=== PATIENT | male | born 1940 | race Hispanic/Latino ===

== ENCOUNTER → 2018-03-25 10:21 | Outpatient (CLI) | payer MEDICARE, SELFPAY ==
[2018-03-25 12:07] LABS: Absolute Lymphocyte Count 2.97 X10^3/ul (0.83-4.51); Absolute Neutrophil Count 3.8 X10^3/uL (2.0-7.7); Basophil# 0.04 X10^3/uL; Basophil% 0.5 % (0-1); Eosinophil# 0.14 X10^3/uL; Eosinophils% 1.9 % (0-5); Hematocrit 48.3 % (40-54); Hemoglobin 15.5 g/dl (13.0-16.5); Lymphocyte # 2.97 X10^3/ul (4.0); Lymphocyte % 40.2 % (19-41); Mean Corp Hgb Conc 32.1 g/gl (32-36); Mean Corpuscular Hgb 27.4 pg (27.0-32.0); Mean Corpuscular Volume 85.5 fL (80-94); Mean Platelet Vol. 10.2 fl (6.2-12.0); Monocyte# 0.48 X10^3/uL; Monocyte% 6.5 % (0-10); Neutrophil # 3.75 X10^3/uL (2.7-7.7); Neutrophil % 50.9 % (47-70); Platelet Count 179 K/mm3 (150-450); RBC Distribution Width CV 13.5 % (11.6-14.6); RBC Distribution Width SD 42.2 fl (35.1-43.9); Red Blood Count 5.65 M/mm3 (4.6-6.2); White Blood Count 7.4 K/mm3 (4.4-11.0)
[2018-03-25 12:08] LABS: POSITIVE COUNT NO; POSITIVE DIFFERENTIAL NO; POSITIVE MORPHOLOGY NO
[2018-03-25 12:38] LABS: Anion Gap 6 (5-15); BUN 24 mg/dL (7-18); BUN/Creat Ratio 21.8 RATIO (10-20); Calcium,Total 9.1 mg/dL (8.5-10.1); Chloride 107 mmol/L (98-107); EST Glomerular Filtration Rate 69 mL/min (>60); Est Glom Filt Rate - Afr Amer 83 mL/min (>60); Glucose 110 mg/dL (74-106); Potassium 4.1 mmol/L (3.5-5.1); Sodium Level 140 mmol/L (136-145); T4 Free Direct 0.89 ng/dL (0.76-1.46); Thyroid Stim Hormone (TSH) 4.39 uIU/mL (0.358-3.74)
[2018-03-26 08:44] LABS: Vitamin B12 383 pg/mL (211-911)
== END ==
PROVIDERS: Family Provider Family Medicine; PCP Family Medicine; Visit Provider Family Medicine
DX: N18.2 Chronic kidney disease, stage 2 (mild) (principal); E03.9 Hypothyroidism, unspecified; R53.83 Other fatigue; G62.9 Polyneuropathy, unspecified
CPT/HCPCS: 36415; 80048; 82607; 84439; 84443; 85025

== ENCOUNTER → 2018-12-03 14:55 | Outpatient (CLI) | payer MEDICARE, SELFPAY ==
[2018-12-03 17:30] LABS: Absolute Lymphocyte Count 3.15 X10^3/ul (0.83-4.51); Absolute Neutrophil Count 4.2 X10^3/uL (2.0-7.7); Basophil# 0.03 X10^3/uL; Basophil% 0.4 % (0-1); Eosinophil# 0.25 X10^3/uL; Hematocrit 47.9 % (40-54); Hemoglobin 15.2 g/dl (13.0-16.5); Lymphocyte # 3.15 X10^3/ul (4.0); Lymphocyte % 38.3 % (19-41); Mean Corp Hgb Conc 31.7 g/gl (32-36); Mean Corpuscular Hgb 27.6 pg (27.0-32.0); Mean Corpuscular Volume 86.9 fL (80-94); Mean Platelet Vol. 11.6 fl (6.2-12.0); Monocyte# 0.61 X10^3/uL; Monocyte% 7.4 % (0-10); Neutrophil # 4.16 X10^3/uL (2.7-7.7); Neutrophil % 50.7 % (47-70); Platelet Count 264 K/mm3 (150-450); RBC Distribution Width CV 13.4 % (11.6-14.6); RBC Distribution Width SD 42.3 fl (35.1-43.9); Red Blood Count 5.51 M/mm3 (4.6-6.2); White Blood Count 8.2 K/mm3 (4.4-11.0)
[2018-12-03 17:44] LABS: Anion Gap 7 (5-15); BUN 23 mg/dL (7-18); BUN/Creat Ratio 19.8 RATIO (10-20); Calcium,Total 8.8 mg/dL (8.5-10.1); Chloride 107 mmol/L (98-107); Creatinine, Serum 1.16 mg/dL (0.70-1.30); EST Glomerular Filtration Rate 65 mL/min (>60); Est Glom Filt Rate - Afr Amer 78 mL/min (>60); Glucose 199 mg/dL (74-106); Potassium 4.1 mmol/L (3.5-5.1); Sodium Level 139 mmol/L (136-145); T4 Free Direct 0.95 ng/dL (0.76-1.46); Thyroid Stim Hormone (TSH) 4.39 uIU/mL (0.358-3.74)
[2018-12-03 17:47] LABS: POSITIVE COUNT NO; POSITIVE DIFFERENTIAL NO; POSITIVE MORPHOLOGY NO
--- OUTSIDE RECORDS SUMMARY | 2019-02-07 14:06 | XMS RPT_ITS ---
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 [facility] without Hospital complications / Repository E11.9(ICD-10) 03/25/2018 Unknown N18.2 - Chronic Derrick Pink Active [place] kidney disease, [facility] stage 2 (mild) / Hospital N18.2(ICD-10) Repository 03/25/2018 Unknown R53.83 - Other Derrick Pink Active [place] fatigue / Community R53.83(ICD-10) Hospital Repository 03/25/2018 Unknown G62.9 - Derrick Pink Active [place] Polyneuropathy, Community unspecified / Hospital G62.9(ICD-10) Repository PROCEDURES PROCEDURES No Procedure Records FoundRESULTS RESULTS BASIC METABOLIC Collected: 12/03/2018 Status: F Source: [place] PROFILE (BMP) 2:57 PM [facility] REPOSITORY TYPE CODE TESTS RESULT OUT OF RANGE REFERENCE UNITS LAB L501.0100 74-106 mg/dL High GLU 199 Result Comment: Fasting Glucose result greater than or equal to 126 mg/dL suggests DIABETES MELLITUS per A.D.A. criteria. Please note revised GLUCOSE reference range effective 2017. LAB L501.1000 7-18 mg/dL High BUN 23 LAB L501.1100 0.70-1.30 mg/dL Normal CREAT,SERUM 1.16 Result Comment: The validity of the calculated GFR AND GFRAA in patients over 70 years has not been determined. Clinical correlation is essential. LAB L501.1110 >60 mL/min Normal EST GFR 65 Result Comment: Non- GFR Calc LAB L501.1115 >60 mL/min Normal EST GFR - AA 78 Result Comment: GFR Calc LAB L501.1300 10-20 RATIO Normal BUN/CRE 19.8 LAB L501.2200 8.5-10.1 mg/dL CA Normal 8.8 LAB L501.5300 136-145 mmol/L NA Normal 139 LAB L501.5600 3.5-5.1 mmol/L K Normal 4.1 Result Comment: Moderate Hemolysis, Result may be falsely increased. LAB L501.5900 98-107 mmol/L Normal CL 107 LAB L501.6100 21.0-32.0 mmol/L Normal CO2 25.0 LAB L501.6200 5-15 Normal 7 GAP Performed By: #### L500.2500, L501.9520, L506.0400 #### [facility] [address] [place], [place], [address] THYROID STIM HORMONE Collected: 12/03/2018 Status: F Source: [place]ERNARD[place] (TSH) 2:57 PM [facility] REPOSITORY TYPE CODE TESTS RESULT OUT OF RANGE REFERENCE UNITS LAB L501.9520 0.358-3.74 uIU/mL High TSH 4.39 Performed By: #### L500.2500, L501.9520, L506.0400 #### [facility] [address] [place], [address] T4 FREE DIRECT Collected: 12/03/2018 Status: F Source: BERNARDINO 2:57 PM [facility] REPOSITORY TYPE CODE TESTS RESULT OUT OF RANGE REFERENCE UNITS LAB L506.0400 0.76-1.46 ng/dL Normal T4 FREE 0.95 DIRECT Performed By: #### L500.2500, L501.9520, L506.0400 #### [facility] [address] [place], [address] CBC W/DIFF, AUTOMATED Collected: 12/03/2018 Status: F Source: [place]ERN[place] 2:57 PM [facility] REPOSITORY TYPE CODE TESTS RESULT OUT OF RANGE REFERENCE UNITS LAB L100.1000 4.4-11.0 K/mm3 Normal WBC 8.2 LAB L100.1200 4.6-6.2 M/mm3 Normal RBC 5.51 LAB L100.1300 13.0-16.5 g/dl Normal HGB 15.2 LAB L100.1400 40-54 % Normal HCT 47.9 LAB L100.1500 80-94 fL Normal MCV 86.9 LAB L100.1600 27.0-32.0 pg Normal MCH 27.6 LAB L100.1700 32-36 g/gl Low MCHC 31.7 LAB L100.1810 11.6-14.6 % Normal RDW CV 13.4 LAB L100.1820 35.1-43.9 fl Normal RDW SD 42.3 LAB L100.1900 150-450 K/mm3 Normal PLT 264 LAB L100.2000 6.2-12.0 fl Normal MPV 11.6 LAB L100.2100 47-70 % Normal NEUT% 50.7 LAB L100.2200 19-41 % Normal LY% 38.3 LAB L100.2300 0-10 % Normal MONO% 7.4 LAB L100.2400 0-5 % Normal EO% 3.0 LAB L100.2500 0-1 % Normal BASO% 0.4 LAB L100.2550 0.0-0.9 % Normal IM GRAN % 0.200 Result Comment: IG% - Immature Granulocytes (promyelocytes, myelocytes and metamyelocytes) > 1% indicates that a LEFT SHIFT is Present. LAB L100.2620 2.0-7.7 X10 3/uL Normal Absolute Neut 4.2 LAB L100.2720 0.83-4.51 X10 3/ul Normal Absolute Lymph 3.15 Performed By: #### L100.0100 #### [facility] [place], [address] CBC W/DIFF, AUTOMATED Collected: 03/25/2018 Status: F Source: BERNARDINO 10:51 AM [facility] REPOSITORY TYPE CODE TESTS RESULT OUT OF RANGE REFERENCE UNITS LAB L100.1000 4.4-11.0 K/mm3 Normal WBC 7.4 LAB L100.1200 4.6-6.2 M/mm3 Normal RBC 5.65 LAB L100.1300 13.0-16.5 g/dl Normal HGB 15.5 LAB L100.1400 40-54 % Normal HCT 48.3 LAB L100.1500 80-94 fL Normal MCV 85.5 LAB L100.1600 27.0-32.0 pg Normal MCH 27.4 LAB L100.1700 32-36 g/gl Normal MCHC 32.1 LAB L100.1810 11.6-14.6 % Normal RDW CV 13.5 LAB L100.1820 35.1-43.9 fl Normal RDW SD 42.2 LAB L100.1900 150-450 K/mm3 Normal PLT 179 LAB L100.2000 6.2-12.0 fl Normal MPV 10.2 LAB L100.2100 47-70 % Normal NEUT% 50.9 LAB L100.2200 19-41 % Normal LY% 40.2 LAB L100.2300 0-10 % Normal MONO% 6.5 LAB L100.2400 0-5 % Normal EO% 1.9 LAB L100.2500 0-1 % Normal BASO% 0.5 LAB L100.2550 0.0-0.9 % Normal IM GRAN % 0.000 Result Comment: IG% - Immature Granulocytes (promyelocytes, myelocytes and metamyelocytes) > 1% indicates that a LEFT SHIFT is Present. LAB L100.2620 2.0-7.7 X10 3/uL Normal Absolute Neut 3.8 LAB L100.2720 0.83-4.51 X10 3/ul Normal Absolute Lymph 2.97 Performed By: #### L100.0100 #### [facility] [address] [place], [place], [address] BASIC METABOLIC Collected: 03/25/2018 Status: F Source: B[place]ARD[place] PROFILE (BMP) 10:51 AM [facility] REPOSITORY TYPE CODE TESTS RESULT OUT OF RANGE REFERENCE UNITS LAB L501.0100 74-106 mg/dL High GLU 110 Result Comment: Fasting Glucose result from 100 to 125 mg/dL suggests IMPAIRED HOMEOSTASIS per A.D.A. criteria. Please note revised GLUCOSE reference range effective 2017. LAB L501.1000 7-18 mg/dL High BUN 24 LAB L501.1100 0.70-1.30 mg/dL Normal CREAT,SERUM 1.10 Result Comment: The validity of the calculated GFR AND GFRAA in patients over 70 years has not been determined. Clinical correlation is essential. LAB L501.1110 >60 mL/min Normal EST GFR 69 Result Comment: Non- GFR Calc LAB L501.1115 >60 mL/min Normal EST GFR - AA 83 Result Comment: GFR Calc LAB L501.1300 10-20 RATIO High BUN/CRE 21.8 LAB L501.2200 8.5-10.1 mg/dL CA Normal 9.1 LAB L501.5300 136-145 mmol/L NA Normal 140 LAB L501.5600 3.5-5.1 mmol/L K Normal 4.1 Result Comment: Slight Hemolysis, Result may be falsely increased. LAB L501.5900 98-107 mmol/L Normal CL 107 LAB L501.6100 21.0-32.0 mmol/L Normal CO2 27.0 LAB L501.6200 5-15 Normal 6 GAP Performed By: #### L500.2500, L501.9520, L506.0400 #### [facility] [address] [place], [place], [id number] THYROID STIM HORMONE Collected: 03/25/2018 Status: F Source: [place] (TSH) 10:51 AM [facility] REPOSITORY TYPE CODE TESTS RESULT OUT OF RANGE REFERENCE UNITS LAB L501.9520 0.358-3.74 uIU/mL High TSH 4.39 Performed By: #### L500.2500, L501.9520, L506.0400 #### [facility] [address] [place], [place], [address] T4 FREE DIRECT Collected: 03/25/2018 Status: F Source: BERNARDINO 10:51 AM [facility] REPOSITORY TYPE CODE TESTS RESULT OUT OF RANGE REFERENCE UNITS LAB L506.0400 0.76-1.46 ng/dL Normal T4 FREE 0.89 DIRECT Performed By: #### L500.2500, L501.9520, L506.0400 #### [place] [facility] [address], [address] VITAMIN B12 Collected: 03/25/2018 Status: F Source: BERNARDINO 10:51 AM [facility] REPOSITORY TYPE CODE TESTS RESULT OUT OF RANGE REFERENCE UNITS LAB L503.0105 211-911 pg/mL Normal Vitamin B12 383 Performed By: #### L503.0105 #### [place] [facility] [address] [place], [address] ALLERGIES ALLERGIES DATE TYPE / CODE NAME / CODE REACTION SEVERITY SOURCE 12/10/2017 Drug No Known Unknown [facility] Allergy/4160 Allergies/F00 Hospital 12645(SNOMED [id number](RXNOR Repository CT) M) ENCOUNTERS ENCOUNTERS ADMIT/DISCHARGE ACCOUNT ADMITTING ENCOUNTER LOCATION SOURCE NUMBER CLASS 12/03/2018 [id number] Ambulatory [address] ing:BFHLAB Repository 03/25/2018 [id number] Ambulatory [address] ing:BFHLAB Repository PAYERS PAYERS ENCOUNTER GUARANTOR PAYER SUBSCRIBER SOURCE 12/03/2018 ENSUNCION Primary ENSUNCION [place] [id number] STAIR Insurance:MEDICARE ORTIZDOB: [facility] [id number] [id number]: [phone]) Number: Repository [phone] () [id number] Date:2018-12-03 12/03/2018 Secondary NOT GIVENUNK [place] Insurance:SELF PAY [facility] Number: Effective Repository Date:2018-12-03 03/25/2018 ENSUNCION Primary ENSUNCION [place] [id number] STAIR Insurance:MEDICARE ORTIZDOB: [place] PART A [facility] [id number] [address]Wjq: (419) Number: Repository [phone] () [id number] Date:2018-03-25 03/25/2018 Secondary NOT GIVENUNK [place] Insurance:SELF PAY [facility] Number: Effective Repository Date:2018-03-25
== END ==
PROVIDERS: Family Provider Family Medicine; PCP Family Medicine; Visit Provider Family Medicine
DX: E11.9 Type 2 diabetes mellitus without complications (principal); E03.9 Hypothyroidism, unspecified
CPT/HCPCS: 36415; 80048; 84439; 84443; 85025

== ENCOUNTER → 2019-04-02 15:38 | Outpatient (CLI) | payer MEDICARE, SELFPAY ==
[2017-12-11 08:37] VITALS: BMI 26.1
--- NOTE | 2019-04-02 15:43 | RAD_ITS ---
STUDY: X-RAY - LEFT KNEE REASON FOR EXAM: Male, 79 years old. Suspect osteoarthrosis. TECHNIQUE: 4 view(s) of the knee. COMPARISON: None. FINDINGS: Normal visualized distal femur. There is demineralization of the tibia and fibula. Normal proximal tibiofibular articulation. There is mild degenerative arthrosis of the medial femorotibial compartment. There is mild degenerative arthrosis of the lateral femorotibial compartment. There is mild degenerative arthrosis of the patellofemoral articulation. The soft tissue structures are unremarkable. 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 Electronically Signed: Luke Xiong DO at 22:39 EDT , Service support ,
--- NOTE | 2019-04-02 15:43 | RAD_ITS ---
STUDY: X-RAY - RIGHT KNEE REASON FOR EXAM: Male, 79 years old. Pain suspect osteoarthritis. TECHNIQUE: 5 view(s) of the knee. COMPARISON: None. FINDINGS: There is demineralization of the visualized distal femur. There is demineralization of the tibia and fibula. Normal proximal tibiofibular articulation. There is mild degenerative arthrosis of the medial femorotibial compartment. There is mild degenerative arthrosis of the lateral femorotibial compartment. There is moderate degenerative arthrosis of the patellofemoral articulation. The soft tissue structures are unremarkable. RAD/Knee 4 or More Views IMPRESSION: Mildly medial and lateral joint space arthrosis Electronically Signed: Luke Xiong DO at 22:19 EDT , Service support ,
== END ==
PROVIDERS: Family Provider Family Medicine; PCP Family Medicine; Referring Provider Family Medicine; Visit Provider Family Medicine
DX: M25.561 Pain in right knee (principal); M25.562 Pain in left knee; N39.0 Urinary tract infection, site not specified
CPT/HCPCS: 73564; 87086; 87088; 87186

== ENCOUNTER → 2019-06-26 11:10 | Outpatient (CLI) | payer MEDICARE, SELFPAY ==
[2017-12-11 08:37] VITALS: BMI 26.1
[2019-06-26 15:47] LABS: Absolute Lymphocyte Count 2.77 X10^3/uL (0.83-4.51); Absolute Neutrophil Count 5.4 X10^3/uL (2.0-7.7); Basophil# 0.05 X10^3/uL; Basophil% 0.6 % (0-1); Eosinophil# 0.18 X10^3/uL; Hematocrit 47.5 % (40-54); Hemoglobin 15.2 g/dL (13.0-16.5); Lymphocyte # 2.77 X10^3/ul (4.0); Lymphocyte % 30.5 % (19-41); Mean Corpuscular Volume 87.5 fL (80-94); Mean Platelet Vol. 11.2 fl (6.2-12.0); Monocyte# 0.61 X10^3/uL; Monocyte% 6.7 % (0-10); NRBC Flagged by Analyzer 0 % (0-5); Neutrophil # 5.44 X10^3/uL (2.7-7.7); Neutrophil % 59.9 % (47-70); Platelet Count 198 K/mm3 (150-450); RBC Distribution Width CV 14.2 % (11.6-14.6); RBC Distribution Width SD 45.4 fl (35.1-43.9); Red Blood Count 5.43 M/mm3 (4.6-6.2); White Blood Count 9.1 K/mm3 (4.4-11.0)
[2019-06-26 16:10] LABS: Anion Gap 6 (5-15); BUN 20 mg/dL (7-18); BUN/Creat Ratio 16.4 RATIO (10-20); Calcium,Total 8.9 mg/dL (8.5-10.1); Chloride 107 mmol/L (98-107); Creatinine, Serum 1.22 mg/dL (0.70-1.30); EST Glomerular Filtration Rate 61 mL/min (>60); Est Glom Filt Rate - Afr Amer 74 mL/min (>60); Glucose 118 mg/dL (74-106); Potassium 4.1 mmol/L (3.5-5.1); Sodium Level 140 mmol/L (136-145); T4 Free Direct 0.92 ng/dL (0.76-1.46); Thyroid Stim Hormone (TSH) 3.92 uIU/mL (0.358-3.74)
== END ==
LOC: LAB.FUTURE 01-01 00:34 → BFHLAB 05-30 15:55
PROVIDERS: Family Provider Family Medicine; PCP Family Medicine; Visit Provider Family Medicine
DX: E11.9 Type 2 diabetes mellitus without complications (principal); I10 Essential (primary) hypertension; R60.0 Localized edema; E03.9 Hypothyroidism, unspecified
CPT/HCPCS: 36415; 80048; 84439; 84443; 85025

== ENCOUNTER → 2019-11-16 14:57 | Outpatient (CLI) | payer MEDICARE, SELFPAY ==
[2017-12-11 08:37] VITALS: BMI 26.1
[2019-11-16 18:04] LABS: Absolute Lymphocyte Count 2.82 X10^3/uL (0.83-4.51); Absolute Neutrophil Count 3.7 X10^3/uL (2.0-7.7); Basophil# 0.04 X10^3/uL; Basophil% 0.6 % (0-1); Eosinophil# 0.26 X10^3/uL; Eosinophils% 3.6 % (0-5); Hematocrit 48.8 % (40-54); Lymphocyte # 2.82 X10^3/ul (4.0); Lymphocyte % 38.8 % (19-41); Mean Corp Hgb Conc 30.7 g/dL (32-36); Mean Corpuscular Hgb 27.1 pg (27.0-32.0); Mean Corpuscular Volume 88.2 fL (80-94); Mean Platelet Vol. 11.4 fl (6.2-12.0); Monocyte# 0.41 X10^3/uL; Monocyte% 5.6 % (0-10); NRBC Flagged by Analyzer 0 % (0-5); Neutrophil # 3.71 X10^3/uL (2.7-7.7); Neutrophil % 51.1 % (47-70); Platelet Count 250 K/mm3 (150-450); Red Blood Count 5.53 M/mm3 (4.6-6.2); White Blood Count 7.3 K/mm3 (4.4-11.0)
[2019-11-16 18:07] LABS: Vitamin B12 648 pg/mL (211-911)
[2019-11-16 18:14] LABS: ALB/GLOB Ratio 0.9 RATIO (0.9-2.4); AST(SGOT) 17 U/L (15-37); Alanine Aminotransfer ALT/SGPT 34 U/L (16-61); Albumin, Serum 3.5 g/dL (3.2-5.0); Alkaline Phosphatase 62 U/L (45-117); Anion Gap 6 (5-15); BUN 27 mg/dL (7-18); BUN/Creat Ratio 15.7 RATIO (10-20); Calcium,Total 8.6 mg/dL (8.5-10.1); Chloride 111 mmol/L (98-107); Creatinine, Serum 1.72 mg/dL (0.70-1.30); EST Glomerular Filtration Rate 41 mL/min (>60); Est Glom Filt Rate - Afr Amer 50 mL/min (>60); Globulin 3.7 g/dL (2.2-4.2); Glucose 94 mg/dL (74-106); Potassium 4.3 mmol/L (3.5-5.1); Protein, Total 7.2 g/dL (6.4-8.2); Sodium Level 145 mmol/L (136-145); T4 Free Direct 1.09 ng/dL (0.76-1.46); Thyroid Stim Hormone (TSH) 1.39 uIU/mL (0.358-3.74)
== END ==
PROVIDERS: Family Provider Family Medicine; PCP Family Medicine; Referring Provider Family Medicine; Visit Provider Family Medicine
DX: E03.9 Hypothyroidism, unspecified (principal); I10 Essential (primary) hypertension; E78.5 Hyperlipidemia, unspecified; F03.90 Unspecified dementia, unspecified severity, without behavioral disturbance, psychotic disturbance, mood disturbance, and anxiety
CPT/HCPCS: 36415; 80053; 82607; 84439; 84443; 85025

== ENCOUNTER → 2019-12-14 15:25 | Outpatient (CLI) | payer MEDICARE, SELFPAY ==
[2017-12-11 08:37] VITALS: BMI 26.1
[2019-12-14 17:54] LABS: Anion Gap 3 (5-15); BUN 23 mg/dL (7-18); Chloride 110 mmol/L (98-107); Creatinine, Serum 1.15 mg/dL (0.70-1.30); EST Glomerular Filtration Rate 65 mL/min (>60); Est Glom Filt Rate - Afr Amer 79 mL/min (>60); Glucose 93 mg/dL (74-106); Potassium 3.8 mmol/L (3.5-5.1); Sodium Level 143 mmol/L (136-145); Thyroid Stim Hormone (TSH) 1.32 uIU/mL (0.358-3.74)
== END ==
LOC: LAB.FUTURE 15:25 → BFHLAB 05-30 15:54
PROVIDERS: Family Provider Family Medicine; PCP Family Medicine; Visit Provider Family Medicine
DX: I10 Essential (primary) hypertension (principal); E03.9 Hypothyroidism, unspecified
CPT/HCPCS: 36415; 80048; 84443

== ENCOUNTER → 2019-12-22 14:18 | Outpatient (CLI) | payer MEDICARE, SELFPAY ==
--- NOTE | 2019-12-22 14:23 | CT_ITS ---
STUDY: CT BRAIN WITH AND WITHOUT CONTRAST REASON FOR EXAM: Male, 79 years old. 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 The examination was performed with intravenous administration. Individualized dose optimization techniques were used for this CT. COMPARISON: 03/18/2015. FINDINGS: Normal soft tissue structures. Normal calvarium. There is mild cerebral atrophy with widening of the extra-axial spaces and ventricular dilatation. There are areas of decreased attenuation within the white matter tracts of the supratentorial brain, consistent with microvascular disease changes. Normal basal ganglia and thalami. Normal brainstem. Normal cerebellum. There is no intracranial hemorrhage. There are no findings of an acute ischemic infarction. Normal visualized paranasal sinuses. CT/Brain/Head W/WO Contrast IMPRESSION: Mild generalized brain atrophy along with microangiopathic white matter disease. Otherwise normal unenhanced and enhanced CT scan of the brain. Electronically Signed: Silva De Luna MD at 0:20 EST , Service support ,
== END ==
LOC: CT 14:20
PROVIDERS: PCP Family Medicine; Referring Provider Family Medicine; Visit Provider Family Medicine
DX: F03.90 Unspecified dementia, unspecified severity, without behavioral disturbance, psychotic disturbance, mood disturbance, and anxiety (principal); R26.0 Ataxic gait; R32 Unspecified urinary incontinence
CPT/HCPCS: 70470

== ENCOUNTER → 2020-05-27 11:40 | Outpatient (CLI) | payer MEDICARE, SELFPAY ==
[2020-05-27 15:19] LABS: Absolute Lymphocyte Count 2.71 X10^3/uL (0.83-4.51); Absolute Neutrophil Count 4.8 X10^3/uL (2.0-7.7); Basophil# 0.08 X10^3/uL; Basophil% 0.9 % (0-1); Eosinophil# 1.02 X10^3/uL; Eosinophils% 11.2 % (0-5); Hematocrit 48.6 % (40-54); Hemoglobin 15.7 g/dL (13.0-16.5); Lymphocyte # 2.71 X10^3/ul (4.0); Lymphocyte % 29.9 % (19-41); Mean Corp Hgb Conc 32.3 g/dL (32-36); Mean Corpuscular Hgb 28.3 pg (27.0-32.0); Mean Corpuscular Volume 87.7 fL (80-94); Mean Platelet Vol. 11.3 fl (6.2-12.0); Monocyte# 0.44 X10^3/uL; Monocyte% 4.9 % (0-10); NRBC Flagged by Analyzer 0 % (0-5); Neutrophil % 52.9 % (47-70); Platelet Count 238 K/mm3 (150-450); RBC Distribution Width CV 13.9 % (11.6-14.6); RBC Distribution Width SD 43.6 fl (35.1-43.9); Red Blood Count 5.54 M/mm3 (4.6-6.2); White Blood Count 9.1 K/mm3 (4.4-11.0)
[2020-05-27 16:15] LABS: ALB/GLOB Ratio 0.9 RATIO (0.9-2.4); AST(SGOT) 21 U/L (15-37); Alanine Aminotransfer ALT/SGPT 30 U/L (16-61); Albumin, Serum 3.7 g/dL (3.2-5.0); Alkaline Phosphatase 66 U/L (45-117); Anion Gap 8 (5-15); BUN 16 mg/dL (7-18); BUN/Creat Ratio 12.5 RATIO (10-20); Calcium,Total 8.7 mg/dL (8.5-10.1); Chloride 107 mmol/L (98-107); Creatinine, Serum 1.28 mg/dL (0.70-1.30); EST Glomerular Filtration Rate 57 mL/min (>60); Est Glom Filt Rate - Afr Amer 70 mL/min (>60); Globulin 3.9 g/dL (2.2-4.2); Glucose 159 mg/dL (74-106); Potassium 3.8 mmol/L (3.5-5.1); Protein, Total 7.6 g/dL (6.4-8.2); Sodium Level 142 mmol/L (136-145); T4 Free Direct 0.98 ng/dL (0.76-1.46); Thyroid Stim Hormone (TSH) 4.35 uIU/mL (0.358-3.74)
== END ==
PROVIDERS: PCP Family Medicine; Visit Provider Family Medicine
DX: E11.9 Type 2 diabetes mellitus without complications (principal); E03.9 Hypothyroidism, unspecified; F03.90 Unspecified dementia, unspecified severity, without behavioral disturbance, psychotic disturbance, mood disturbance, and anxiety
CPT/HCPCS: 36415; 80053; 84439; 84443; 85025

== ENCOUNTER 2020-09-14 20:02 | Inpatient (IN) | payer MEDICARE, MEDICAID, SELFPAY ==
[2020-09-14] VITALS (10 sets, daily range): BP systolic 160–199; BP diastolic 89–111; PULSE 61–70; RESP 15–23; TEMP 36.2–36.6; O2SAT 95–98; BMI 32.3; BMI 27.2; BMI 29.4
--- NOTE | 2020-09-14 20:04 | EKG12_ITS ---
Test Reason : RHY CHECK Blood Pressure : / mmHG Vent. Rate : 056 BPM Atrial Rate : 056 BPM P-R Int : 148 ms QRS Dur : 118 ms QT Int : 474 ms P-R-T Axes : 000 -01 166 degrees QTc Int : 457 ms Sinus bradycardia Incomplete left bundle branch block ST & T wave abnormality, consider lateral ischemia Abnormal ECG Confirmed by DISHA STROUD, SANTOS ([id number]), health editor SHAHNAZ ROGER ([id number]) on 09/21/2020 10:52:01 AM Referred By: GARY Confirmed By:SANTOS GAUTHIER MD
--- NOTE | 2020-09-14 20:04 | CT_ITS ---
We are attempting to reach an attending provider to discuss findings. An addendum with communication details will be sent when the communication is complete. STUDY: CT BRAIN WITHOUT CONTRAST REASON FOR EXAM: Male, 80 years old. STROKE ALERT, LT SIDED WEAKNESS, CONFUSION, FALL RADIATION DOSAGE (If Supplied By Facility): CTDIvol = ( 44.99 ) mGy, DLP = ( 812.98 ) mGycm TECHNIQUE: Transaxial CT imaging of the brain was performed without administration of intravenous contrast material. Individualized dose optimization techniques were used for this CT. COMPARISON: 12/22/2019 FINDINGS: Normal soft tissue structures. Normal calvarium. Normal size ventricles and extra-axial spaces for the patient''s age. Bilateral white matter microangiopathic ischemic changes of the cerebral hemispheres. 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 Normal brainstem. Normal cerebellum. There is no intracranial hemorrhage. There are no findings of an acute ischemic infarction. Normal visualized paranasal sinuses. CT/Brain/Head without Contrast IMPRESSION: Age-related and chronic changes of the brain similar to previous study. Electronically Signed: Oscar Baltazar DO at 20:24 EDT Tel [phone], Service support ,
--- NOTE | 2020-09-14 20:19 | ED.DCSUM_ITS ---
History of Present Illness Chief Complaint: Neuro S/Sx Informant: Patient Onset: Today Quality and Location: Left Face Parasthesia, Left Arm Parasthesia, Left Arm Weakness, Expressive Aphasia Narrative: Patient is an 80-year-old male with history of CKD, diabetes mellitus, hyperlipidemia, hypertension, hypothyroid and SVT presenting via EMS for left- sided weakness and a fall. Patient was last seen well around 10 or 1030 this morning, approximate 10 hours prior to arrival. He is normally left home during the day will everyone else is at work and school. Family returned home around 530 or 6 and found him on the floor. He was laying on his left side. Did a hard time getting him up and he seemed to have left-sided weakness. He had a hard time walking and was dragging his left leg. 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 Patient seemed more confused and did not remember exactly what happened today. Patient normally ambulates with a cane at home but ambulates well independently. He is not on any blood thinners. Is not clear if he hit his head. Family called [phone] when he continued to have weakness and confusion. He is not on any blood thinners. Past Medical History - Allergies and Home Meds Allergies/Adverse Reactions: Allergies No Known Allergies Allergy (Verified 12/10/17 15:49) Primary Care Physician: Derrick Pink MD [Primary Care Provider] - Past Medical History: - - CKD, diabetes mellitus, hyperlipidemia, hypertension, hypothyroid, SVT Surgical History: - - Removal of the umbilicus Smoking Status: Never smoker - Family History Maternal Family History: Family History (Last Updated 11/28/17 @ 11:09 by Mariah Renae) Father Diabetes Hypertension Kidney disease Family History: Reports: Unknown Paternal Family History: Family History (Last Updated 11/28/17 @ 11:09 by Mariah Renae) Father Diabetes Hypertension Kidney disease Family History: Reports: Unknown Sibling Family History: Family History (Last Updated 11/28/17 @ 11:09 by Mariah Renae) Father Diabetes Hypertension Kidney disease Family History: Reports: Unknown Review of Systems General: Denies: Chills, Fever, Sweats Eyes: Denies: Visual changes - bilaterally, Diplopia ENT: Denies: Rhinorrhea, Sore throat Cardiovascular: Denies: Chest pain, Palpitations Respiratory: Denies: Dyspnea, Cough, Dyspnea on exertion Gastrointestinal: Denies: Abdominal pain, Nausea, Vomiting, Diarrhea, Melena, Hematochezia Genitourinary: Denies: Dysuria, Hematuria, Frequency Musculoskeletal: Denies: Back pain, Extremity Pain Skin: Denies: Rash, Wounds Neurological: Reports: Weakness, Parasthesia, - - confusion . Denies: Headache, Numbness STROKE Vital Signs/Narrative: Vital Signs Temp Pulse Resp BP Pulse Ox 09/14/20 20:08 160/90 H 09/14/20 20:03 97.1 F L 63 16 160/90 H 96 Inital Vital Signs reviewed: Yes - NIHSS Initial 1a Level of Consciousness: 0 1b LOC Questions (Score 2 if aphasic/stupor): 0 1c LOC Commands (Only score 1st attempt): 1 2 Best Gaze (If aphasic, use reflexive mvmts.): 0 3 Visual: 0 4 Facial Palsy: 1 5 Motor Arm Right (UN = amputation/fusion): 0 5 Motor Arm Left: 1 6 Motor Leg Right: 0 6 Motor Leg Left: 0 7 Limb ataxia (Only + if out of proportion): 0 8 Sensory (Aphasia/stupor=0 or 1, coma=2): 1 9 Best Language: 0 10 Dysarthria (mute, coma=2, intubated=UN): 1 11 Extinction and Inattention (only scored if +): 0 Total Score: 5 General: Well nourished, Well developed Head: Normocephalic, Atraumatic Eyes: Perrl, EOMI ENT: Moist mucous membranes, No rhinorrhea Neck: Supple, Nontender Cardiovascular: Regular rate, Regular rhythm, No murmurs Respiratory: No distress, CTA bilaterally, Chest nontender Abdomen: Soft, Nontender, Nondistended, Normal bowel sounds Back: Nontender, Normal Inspection Extremities: Nontender, No edema Skin: Normal color, No rash Neurological: Alert, Oriented x3, Cranial nerves II-XII grossly intact, Normal Strength, Normal Sensation Psychological: Normal affect Diagnostic/Tx/Re-eval Chest X-Ray - ED: 1 View, Read by ED Physician, Read by Radiologist, No Acute Disease - Rhythm Strip Rhythm Strip: Sinus Rhythm Rate: 61 Ectopy: None - EKG Initial EKG Interpretation: Sinus Rhythm, - - Normal sinus rhythm rate of 61 Left axis Incomplete left bundle branch block Nonspecific T wave inversions in lateral leads Compared to prior EKG on 03/24/2015 patient has no acute T wave changes - Medical Decision Making Stroke Team Activated: Yes Reviewed Inclusion/Exclusion criteria: Yes Was Patient considered for Endovascular Intervention?: No IV Alteplase (t-PA) Administered: No Evaluated for acute onset of confusion neurologic deficits. Patient's last known well was approximately 10 hours prior to arrival. He has an NIH of 5. He is not a TPA candidate given his last known well. CT obtained per the recommendation of telestroke which does not show a large vessel occlusion and does show a questionable area of stenosis at the proximal vertebral artery on the left versus artifact. This can be evaluated further. Patient's lab work is remarkable for CKD and a mildly elevated troponin. He is not having chest pain. Does not have any acute EKG changes. CPK is obtained as patient was on the ground for an unknown amount of time but he does not have findings consistent with rhabdomyolysis. Daughter is now at the bedside who states that patient has had some cognitive decline over the past year and does not want anything invasive done for him. She is amenable to further medical evaluation and possible PT OT. Patient is stable for the general medical floor at time of disposition. Of note, patient does have to receive of contrast bolus twice because his initial CTA had significant motion artifact and therefore had to be repeated. At the time given the risk of repeat contrast bolus versus the benefits of possibly diagnosing large vessel occlusion, I did think a repeat bolus was indicated. ED Disposition - Plan for ED Patient: Disposition: Home or Assisted Living Diagnosis: Left-sided weakness, Elevated troponin, Chronic kidney disease, Confusion Referrals: Derrick Pink MD [Primary Care Provider] -
--- NOTE | 2020-09-14 20:24 | ED.RN ---
PT PRESENTS SOILED, WET CLOTHES, SOCKS SOAKED. SKIN ON BOTTOM OF FEET HAVE TURNED WHITE D/T WETNESS.
--- NOTE | 2020-09-14 20:36 | CT_ITS ---
STUDY: CTA HEAD AND NECK WITH CONTRAST REASON FOR EXAM: Male, 80 years old. LEFT ARM WEAKNESS, APHASIA, FALL TODAY. NOT ON THINNERS. RADIATION DOSAGE (If Supplied By Facility): CTDIvol = ( 19.66 ) mGy, DLP = ( 759.55 ) mGycm TECHNIQUE: CT angiography was performed with a multi-detector CT scanner. Data acquisition was obtained from the skull base through the vertex following intravenous administration of IV 100mL Isovue-370. MIP images were reconstructed from the axial data set. Post-processing of the angiographic images was performed, with multiplanar reformation and 3D reconstruction. Individualized dose optimization techniques were used for this CT. COMPARISON: No relevant priors. FINDINGS: Normal bilateral petrous carotid arteries. Normal right cavernous carotid artery with a normal supraclinoid bifurcation. Normal left cavernous carotid artery with a normal supraclinoid bifurcation. Normal right A1 segments of the anterior cerebral artery. Normal left A1 segments of the anterior cerebral artery. Questionable visualization of the anterior communicating artery (ACOM). Normal bilateral A2 segments of the anterior cerebral arteries. Normal right M1 and M2 segments of the middle cerebral arteries, with a normal M1 bifurcation. Normal left M1 and M2 segments of the middle cerebral arteries, with a normal M1 bifurcation. Nonvisualization of the posterior communicating arteries (PCOM). Normal bilateral vertebral arteries. Normal basilar artery with a normal basilar bifurcation. The visualized bilateral superior cerebellar (SCA) arteries are normal. Normal bilateral P1, P2 and visualized P3 segments of the posterior cerebral arteries. There is no demonstrated aneurysm of the [place] of [place]. There is no demonstrated abnormality of the visualized brain. AORTIC ARCH: Mildly calcified aortic arch. Normal origins of the brachiocephalic, left common carotid, and left subclavian arteries. RIGHT CAROTID ARTERIES: Normal right common carotid artery (CCA). Mildly calcified right common carotid bulb without hemodynamically significant stenosis. Normal origin of the right internal carotid (ICA) artery without a hemodynamically significant stenosis. Normal visualized cervical portion of the right internal carotid artery. Mild calcifications at the origin of the right external carotid artery (ECA). LEFT CAROTID ARTERIES: Normal left common carotid artery (CCA). Mildly calcified left common carotid bulb without hemodynamically significant stenosis. Normal origin of the left internal carotid (ICA) artery without a hemodynamically significant stenosis. Normal visualized cervical portion of the left internal carotid artery. Minimal calcification of the proximal left external carotid artery (ECA). VERTEBRAL ARTERIES: Normal right vertebral artery. Possible focal moderate to severe stenosis near the origin of the left vertebral artery. CT/CTA Head AND Neck W/ Contrast IMPRESSION: Possible focal moderate to severe stenosis near the origin of the left vertebral artery. Electronically Signed: Oscar Baltazar DO at 21:34 EDT Tel [phone], Service support ,
[2020-09-14 20:44] LABS: Absolute Lymphocyte Count 2.45 X10^3/uL (0.83-4.51); Absolute Neutrophil Count 7.7 X10^3/uL (2.0-7.7); Basophil# 0.06 X10^3/uL; Basophil% 0.6 % (0-1); Eosinophil# 0.09 X10^3/uL; Eosinophils% 0.8 % (0-5); Hematocrit 49.1 % (40-54); Hemoglobin 15.5 g/dL (13.0-16.5); Lymphocyte # 2.45 X10^3/ul (4.0); Lymphocyte % 22.5 % (19-41); Mean Corp Hgb Conc 31.6 g/dL (32-36); Mean Corpuscular Volume 88.6 fL (80-94); Mean Platelet Vol. 10.2 fl (6.2-12.0); Monocyte# 0.61 X10^3/uL; Monocyte% 5.6 % (0-10); NRBC Flagged by Analyzer 0 % (0-5); Neutrophil # 7.65 X10^3/uL (2.7-7.7); Neutrophil % 70.2 % (47-70); Platelet Count 225 K/mm3 (150-450); RBC Distribution Width CV 13.2 % (11.6-14.6); Red Blood Count 5.54 M/mm3 (4.6-6.2); White Blood Count 10.9 K/mm3 (4.4-11.0)
[2020-09-14 20:57] LABS: Prothrombin Time (Protime)PT. 12.3 SECONDS (11.7-14.9)
[2020-09-14 20:58] LABS: Partial Thromboplast Time 28.8 Seconds (24.1-36.2)
--- NOTE | 2020-09-14 21:00 | RAD_ITS ---
STUDY: X-RAY CHEST REASON FOR EXAM: Male, 80 years old. FALL, STROKE. LEFT SIDE WEAKNESS. TECHNIQUE: Frontal view COMPARISON: 03/24/2015 FINDINGS: The lungs are clear and expanded. There is no demonstrated pleural abnormality. Normal size heart. Normal mediastinum and hebert. Prominent central pulmonary arteries. Normal visualized aortic arch and descending thoracic aorta. Degenerative changes of the thoracic spine. Normal visualized ribs, clavicles, and shoulders. There is no demonstrated abnormality of the visualized soft tissue structures of the upper abdomen. RAD/Chest 1 View IMPRESSION: Central pulmonary vascular prominence. Electronically Signed: Oscar Baltazar DO at 21:22 EDT Tel [phone], Service support ,
[2020-09-14 21:01] LABS: Anion Gap 4 (5-15); BUN 30 mg/dL (7-18); BUN/Creat Ratio 22.1 RATIO (10-20); Calcium,Total 9.1 mg/dL (8.5-10.1); Chloride 112 mmol/L (98-107); Creatinine, Serum 1.36 mg/dL (0.70-1.30); EST Glomerular Filtration Rate 54 mL/min (>60); Est Glom Filt Rate - Afr Amer 65 mL/min (>60); Estimated Creatinine Clearance 44.73 ml/min; Glucose 108 mg/dL (74-106); Sodium Level 144 mmol/L (136-145)
[2020-09-14 21:05] LABS: CPK Total, Creatine Kinase 108 U/L (39-308)
--- NOTE | 2020-09-14 21:26 | CM.ED ---
Social Work Patient with stroke alert. At time of stroke alert patient family not present. Patient family now present. This social media analyst offering support. Patient and patient family with pleasant and appropriate affect. Patient family/patient voicing no social work needs currently. Dk WILL, POLLY
[2020-09-14] MEDS: Aspirin 81 MG TAB.CHEW 324 MG PO (22:22)
--- NOTE | 2020-09-14 22:29 | HP.PCM_ITS ---
Problem List (1) Left-sided weakness Status: Acute (2) Elevated troponin Status: Acute (3) Chronic kidney disease Status: Chronic (4) Confusion Status: Acute (5) Hypertension Status: Chronic (6) Hypothyroidism Status: Chronic (7) Hyperlipemia Status: Chronic (8) Diabetes mellitus Status: Chronic (9) CVA (cerebral vascular accident) Status: Acute History of Present Illness Date of Admission: 09/14/20 Chief Complaint: left sided weakness The patient is a 80 year old M with a significant history of CKD stage III; di abetes mellitus; hypertension; hypothyroidism; and hyperlipidemia who presents emergency department with left-sided weakness. Patient lives with his family who left him at home. His family upon returning from home realized that patient was lying on his left side on the floor. His family realized that he was weak on the left side. Patient appeared confused. Patient was brought to emergency department where stroke alert was called. Past Medical History Past Medical History (Chronic Problems): Chronic Problems (Last Reviewed 09/15/20 @ 01:[address] Bart Meyers MD) Chronic kidney disease (Chronic) Hypertension (Chronic) Hypothyroidism (Chronic) Hyperlipemia (Chronic) Diabetes mellitus (Chronic) Medical History: Medical History (Last Reviewed 09/15/20 @ 02:[address] Bart Meyers MD) Diarrhea (Inactive) R19.7 Hypertension (Chronic) I10 Hypothyroidism (Chronic) E03.9 Hyperlipemia (Chronic) E78.5 Diabetes mellitus (Chronic) E11.9 CKD (chronic kidney disease) N18.9 SVT (supraventricular tachycardia) I47.1 Allergies No Known Allergies Allergy (Verified 12/10/17 15:49) Home Medications: Ambulatory Orders Medication Instructions Recorded Levothyroxine [Synthroid] 75 mcg PO DAILY 04/23/16 Lisinopril [Zestril] 5 mg PO DAILY 04/23/16 Simvastatin [Zocor] 40 mg PO QHS 04/23/16 furosemide 20 mg tablet 20 mg PO DAILY 11/28/17 Donepezil HCl [Aricept] 5 mg PO QHS 09/14/20 Metoprolol Succinate [Toprol Xl] 25 mg PO DAILY 09/14/20 Surgical History: Surgical History (Last Reviewed 09/15/20 @ 02:[address] Bart Meyers MD) H/O umbilical hernia repair Z98.890, Z87.19 Surgical History: - - Removal of the umbilicus Psychiatric History: No pertinent psych hx Smoking Status: Never smoker - Secondhand smoking from . - *Family History Maternal Family History: Family History (Last Reviewed 09/15/20 @ 02:[address] Bart Meyers MD) Father Diabetes Hypertension Kidney disease Paternal Family History: Family History (Last Reviewed 09/15/20 @ 02:[address] Bart Meyers MD) Father Diabetes Hypertension Kidney disease Sibling Family History: Family History (Last Reviewed 09/15/20 @ 02:[address] Bart Meyers MD) Father Diabetes Hypertension Kidney disease Review of Systems Constitutional: Denies: Chills, Fever, Weight Change HEENT: Denies: Head Aches, Sinus Congestion, Sinus Drainage Cardiovascular: Denies: Chest Pain, Palpitations Respiratory: Denies: Cough, Shortness of breath at rest, Sputum production Gastrointestinal: Denies: Abdominal Pain, Nausea, Vomiting Genitourinary: Denies: Dysuria Musculoskeletal: Denies: Joint Pain, Joint Tenderness Skin: Denies: Rash, Wounds Neurological: Reports: Confusion, Focal weakness Psychiatric: Denies: Anxiety, Depression, Homicidal Ideations, Suicidal Ideations Hematologic/ Lymphatic: Denies: Easy Bruising, Easy Bleeding VTE Information - Inpt Only VTE Present on Admission: No VTE Mechan Device Prophylaxis: None VTE Pharm Prophylaxis ordered?: Yes Patient Problems: Active and Suspected Problems (Last Reviewed 09/15/20 @ 01:[address] Bart Meyers MD) Left-sided weakness (Acute) Elevated troponin (Acute) Confusion (Acute) CVA (cerebral vascular accident) (Acute) - Physical Exam Vitals/I&O's: Vital Signs Temp Pulse Resp BP Pulse Ox 97.1 F L 64 18 177/89 H 97 09/14/20 20:03 09/14/20 22:00 09/14/20 22:00 09/14/20 22:00 09/14/20 22:00 Oxygen Delivery Method Room Air Weight: 86.1 kg Body Mass Index (BMI) 27.2 Finger Stick Blood Glucose 154 General: Alert, Oriented x3, Cooperative HEENT: Atraumatic, PERRLA, EOMI, Normocephalic Neck: Supple, No JVD, Negative Carotid Bruits Lungs: Wheezes - mild Cardiovascular: Regular rate, Normal S1, Normal S2, No murmurs Abdomen: Bowel Sounds Present, Soft, Non Tender Extremities: No edema, Capillary Refill Less than 3 Seconds Skin: No rashes, No breakdown Musculoskeletal: No Tenderness to Palpation of Joints or Extremities Neurological: Cranial nerves II-XII grossly intact, - - Strengthening left upper and left lower extremity 4 out of 5. Strength in right upper and right lower extremity 5 out of 5. Facial droop on the left side. Sensation changes in extremities. Hyperreflexia on the left upper extremity. Deep tendon reflexes in all other extremities did not show 2/4 Psych/Mental Status: Normal Affect, Appropriate Laboratory Results 09/14/20 20:40: WBC 10.9, RBC 5.54, Hgb 15.5, Hct 49.1, MCV 88.6, MCH 28.0, MCHC 31.6 L, RDW Std Deviation 43.0, RDW Coeff of Lupillo 13.2, Plt Count 225, MPV 10.2, Immature Gran % (Auto) 0.300, Neut % (Auto) 70.2 H, Lymph % (Auto) 22.5, [place] % (Auto) 5.6, Eos % (Auto) 0.8, Baso % (Auto) 0.6, Absolute Neuts (auto) 7.7, Absolute Lymphs (auto) 2.45, Nucleated RBC % 0 09/14/20 20:40: PT 12.3, INR 1.0, APTT 28.8 09/14/20 20:40: Sodium 144, Potassium 4.0, Chloride 112 H, Carbon Dioxide 28.0, Anion Gap 4 L, BUN 30 H, Creatinine 1.36 H, Estim Creat Clear Calc 44.73, Est GFR (MDRD) Af Amer 65, Est GFR (MDRD) Non-Af 54 L, BUN/Creatinine Ratio 22.1 H, Glucose 108 H, Calcium 9.1, Troponin I 0.233 H 09/14/20 20:40: Total Creatine Kinase 108 Assessment/Plan All Active Problems (Last Reviewed 09/15/20 @ 01:[address] Bart Meyers MD) Left-sided weakness (Acute) Elevated troponin (Acute) Confusion (Acute) CVA (cerebral vascular accident) (Acute) Acute CVA NINDS NIH Scale was scored as a 5 at the emergency department. NIH scale continued CT of the head was unremarkable. Head and neck CTA was remarkable for possible focal moderate to severe stenosis near the origin of the left vertebral artery. Emergent department doctor reportedly discussed with radiologist who said it could be real or could be artifactual. This may not be amenable to intervention. This was discussed with patient and family and patient and family did not want any acute intervention either. Patient was not previously on aspirin. We will start patients on daily aspirin. Because of possible vertebral stenosis Plavix ordered. -Check Hba1c, Lipid level Physical therapy, occupational therapy and speech therapy to work with patient. N.p.o. until bedside swallow eval. On Zocor 40 mg p.o. nightly; change to Lipitor 40 mg p.o. nightly.. Permissive hypertension. Control blood pressure with labetalol for systolic blood pressure of more than 220 or diastolic blood pressure of more than 120. Hold home lisinopril and metoprolol. MRI of brain ordered. Echocardiogram ordered. Acute encephalopathy Likely secondary to acute CVA Clinical monitoring. Dementia Aricept continued Hypothyroidism Synthroid continued CHF Echocardiogram on 03/24/2015 showed an ejection fraction of 65% to stage I diastolic dysfunction. Lasix continued. DVT Prophylaxis Subcutaneous Lovenox OBSV E&M: [id number] Initial observation care L3
--- NOTE | 2020-09-14 23:35 | ECHOCS_ITS ---
Version 2 Reason For Study: TIA/CVA Procedure This was a 2D Doppler, Color Flow transthoracic echocardiogram. The study was technically difficult. Contrast injection was performed. Exam performed portable in patient room. Left Ventricle The estimated ejection fraction is 55 %. Diastolic function is indeterminate. Right Ventricle Normal RV size. Normal systolic function. Atria Normal left atrium. Normal right atrium. No doppler evidence for ASD. Bubble contrast study negative for right to left interatrial shunt. Mitral Valve There is no mitral valve stenosis. No mitral valve insufficiency. Tricuspid Valve There is no tricuspid stenosis. Trivial tricuspid valve insufficiency. Pulmonary artery systolic pressure is 40-45 mmHg. Aortic Valve Trisinus/trileaflet aortic valve. There is no aortic stenosis. No aortic valve insufficiency. Pulmonic Valve There is no pulmonic valvular stenosis. No pulmonic valve insufficiency. Great Vessels Normal aortic root. Pericardium/Pleural No pericardial effusion. Medication Diluted definity 5ml given slow IV push to enhance endocardial definition. Performed a rapid injection of agitated mix of 9 cc saline and 1cc air to assess for atrial septal defect. MMode/2D Measurements & Calculations RVDd: 3.0 cm LVOT diam: 2.0 cm LAV(MOD-bp): 46.8 ml LVOT area: 3.2 cm2 LAV(MOD-bp) Indexed: 23.7 ml/m2 LAV(MOD-sp2): 53.6 ml LAV(MOD-sp4): 36.1 ml SV(MOD-sp4): 43.7 ml SV(sp4-el): 47.6 ml LVAd ap4: 34.6 cm2 EDV(MOD-sp4): 121.2 ml EDV(sp4-el): 128.1 ml LVAs ap4: 25.8 cm2 ESV(MOD-sp4): 77.5 ml ESV(sp4-el): 80.4 ml EF(MOD-sp4): 36.1 % EF(sp4-el): 37.2 % LA A4 area: 13.9 cm2 RA A4 area: 11.9 cm2 Time Measurements MV dec time: 0.30 sec Doppler Measurements & Calculations MV E max randy: 59.0 cm/sec Lat Peak E' Randy: 5.0 cm/sec Med Peak E' Randy: 3.8 cm/sec MV A max randy: 86.5 cm/sec E/E' lat: 11.7 E/E' med: 15.5 MV E/A: 0.68 Ao V2 max: 162.2 cm/sec LV V1 max: 106.5 cm/sec PA V2 max: 96.1 cm/sec Ao max P.5 mmHg LV V1 max P.5 mmHg MARGOT(V,D): 2.1 cm2 TR max randy: 302.2 cm/sec TR max P.6 mmHg Interpretation Summary The estimated ejection fraction is 55 %. Diastolic function is indeterminate. Hypokinesis of a portion of the lateral and posterior glass. The study was technically difficult. Contrast injection was performed. Ordering Physician: Bart Meyers Referring Physician: MO HICKS Performed By: Toña Guallpa RDCS, RVT
[2020-09-15] VITALS (18 sets, daily range): BP systolic 155–181; BP diastolic 72–103; PULSE 53–108; RESP 16–20; TEMP 36.4–37.3; O2SAT 95–99; BMI 29.4
[2020-09-15 04:15] LABS: Cholesterol 222 mg/dL (200); High Density Lipoprotein 51 mg/dL; Triglycerides 174 mg/dL; Very Low Density Lipoprotein 35 mg/dL (5-40)
[2020-09-15] MEDS: Levothyroxine 75 MCG Tablet PO (06:03)
[2020-09-15] MEDS: Aspirin 81 MG TAB.CHEW PO (08:08)
[2020-09-15 08:26] LABS: Hemoglobin A1c 6.6 % (3.8-5.6)
--- NOTE | 2020-09-15 08:30 | MRI_ITS ---
We are attempting to reach an attending provider to discuss findings. An addendum with communication details will be sent when the communication is complete. STUDY: MRI BRAIN WITHOUT CONTRAST REASON FOR EXAM: Male, 80 years old. cva, lt sided weakness, confusion TECHNIQUE: Standardized multiplanar fat and water weighted pulse sequences were obtained. COMPARISON: CT 09/14/2020 FINDINGS: There is moderate cerebral atrophy with widening of the extra-axial spaces and ventricular dilatation. There are multiple white matter hyperintensities, distributed throughout the deep white matter tracts of the cerebral hemispheres, consistent with moderate chronic white matter ischemic changes. Linear hyperintensities of the posterior limb of the right internal capsule demonstrate restricted diffusion consistent with the acute/subacute white matter infarct. Normal T2* images of the brain without demonstrated susceptibility artifact. There is no demonstrated hemosiderin stain. Chronic lacunar infarcts in the basal ganglia bilaterally. Chronic lacunar infarcts of the thalami bilaterally. There is no extra-axial fluid accumulation. Normal flow voids within the major intracranial circulation suggesting patency by spin echo criteria. Normal sella turcica, pituitary gland, infundibular stalk, optic chiasm and hypothalamus. Normal tectal plate and pineal gland. Normal midbrain, joselito and medulla. Normal cerebellum. Normal basal cisterns. Normal bilateral temporal bones. Normal bilateral internal auditory canals. No demonstrated orbital abnormality, within the constraints of a routine brain study. Normal visualized paranasal sinuses. Normal calvarium and skull base. Normal visualized soft tissue structures. Normal visualized upper cervical spine. MRI/Brain without Contrast IMPRESSION: Involutional changes of the brain, as described above. 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 Electronically Signed: Andrea Jarquin MD at 9:58 EDT Tel , Service support ,
[2020-09-15] MEDS: Enoxaparin 40 MG/0.4 ML Syringe SC (10:09)
[2020-09-15] MEDS: Furosemide 20 MG Tablet PO (10:10)
[2020-09-15] MEDS: Clopidogrel Bisulfate 75 MG Tablet PO (10:13)
--- NOTE | 2020-09-15 11:08 | PCM.PN.HOSP ---
Patient Problems: Active and Suspected Problems (Last Reviewed 09/15/20 @ 02:[address] Bart Meyers MD) Left-sided weakness (Acute) Elevated troponin (Acute) Confusion (Acute) CVA (cerebral vascular accident) (Acute) Reason for Visit: CVA Subjective: Still with left sided weakness. Vitals/I&O's: Vital Signs Temp Pulse Resp BP Pulse Ox 36.7 C 55 L 16 172/84 H 99 09/15/20 08:24 09/15/20 08:24 09/15/20 08:24 09/15/20 08:24 09/15/20 08:24 Oxygen Delivery Method Room Air Weight: 80.2 kg Body Mass Index (BMI) 29.4 Finger Stick Blood Glucose 154 Intake and Output for Last 24 Hours 09/13/20 09/14/20 09/15/20 23:59 23:59 23:59 Intake Total 0 / 0 Balance 0 / 0 General: Alert, No apparent distress HEENT: Atraumatic, Normocephalic, - - left sided facial droop. Neck: No Nodes, Thyroid Normal Size and Texture Lungs: Clear to auscultation, Normal air movement, No rhonchi, No wheeze Cardiovascular: Regular rate, Regular Rhythm, Normal S1, Normal S2 Abdomen: Bowel Sounds Present, Soft, Non Tender, Non-Distended, No Hepato-splenomegaly Extremities: No edema, No Calf Tenderness Skin: No rashes, No breakdown Musculoskeletal: No Tenderness to Palpation of Joints or Extremities, No Muscle Wasting Neurological: Cranial nerves II-XII grossly intact - except left facial droop., Motor Exam 5/5 strength throughout - in RUE and RLE, 2/5 in LUE and 0/5 in LLE., Facial Droop - left Psych/Mental Status: Normal Affect, Appropriate Laboratory Results 09/14/20 20:40: WBC 10.9, RBC 5.54, Hgb 15.5, Hct 49.1, MCV 88.6, MCH 28.0, MCHC 31.6 L, RDW Std Deviation 43.0, RDW Coeff of Lupillo 13.2, Plt Count 225, MPV 10.2, Immature Gran % (Auto) 0.300, Neut % (Auto) 70.2 H, Lymph % (Auto) 22.5, [place] % (Auto) 5.6, Eos % (Auto) 0.8, Baso % (Auto) 0.6, Absolute Neuts (auto) 7.7, Absolute Lymphs (auto) 2.45, Nucleated RBC % 0 09/14/20 20:40: PT 12.3, INR 1.0, APTT 28.8 09/14/20 20:40: Sodium 144, Potassium 4.0, Chloride 112 H, Carbon Dioxide 28.0, Anion Gap 4 L, BUN 30 H, Creatinine 1.36 H, Estim Creat Clear Calc 44.73, Est GFR (MDRD) Af Amer 65, Est GFR (MDRD) Non-Af 54 L, BUN/Creatinine Ratio 22.1 H, Glucose 108 H, Calcium 9.1, Troponin I 0.233 H 09/14/20 20:40: Total Creatine Kinase 108 09/15/20 00:30: Troponin I 0.248 H 09/15/20 03:36: Troponin I 0.269 H, Triglycerides 174, Cholesterol 222 H, LDL Cholesterol 136 H, VLDL Cholesterol 35, HDL Cholesterol 51 09/15/20 03:36: Hemoglobin A1c 6.6 H 09/15/20 06:22: Troponin I 0.292 H Clinical Impression(s) from Imaging Studies Brain CT 09/14/20 20:04 IMPRESSION: Age-related and chronic changes of the brain similar to previous study. Electronically Signed: Oscar Baltazar DO at 20:24 EDT Tel [phone], Service support , ADDENDUM: 09/14/202032 IMPRESSION: Age-related and chronic changes of the brain similar to previous study. N.B. : The above information has been verbally conveyed by Oscar Baltazar DO to Suma Samuels DO, on 09/14/2020 20:26:38 (ET). Electronically Signed: Oscar Baltazar DO at 20:24 EDT Tel [phone], Service support , Head/Neck CTA 09/14/20 20:36 IMPRESSION: Possible focal moderate to severe stenosis near the origin of the left vertebral artery. Electronically Signed: Oscar Baltazar DO at 21:34 EDT Tel [phone], Service support , Chest X-Ray 09/14/20 21:00 IMPRESSION: Central pulmonary vascular prominence. Electronically Signed: Oscar DO Giovanny at 21:22 EDT Tel [phone], Service support , Brain MRI 09/15/20 08:30 IMPRESSION: Involutional changes of the brain, as described above. 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 Electronically Signed: Andrea Jarquin MD at 9:58 EDT Tel , Service support , ADDENDUM: 09/15/20 1013 IMPRESSION: Involutional changes of the brain, as described above. 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 N.B. : The above information has been verbally conveyed by Andrea Jarquin MD to Antolin So RN, on 09/15/2020 10:06:20 (ET). Electronically Signed: Andrea Jarquin MD at 9:58 EDT Tel , Service support , Current Medications Acetaminophen (Acetaminophen 325 Mg Tablet) 650 mg PO Q4H PRN PRN PRN Reason: Headache(1-10)/Temp>99.6F Acetaminophen (Acetaminophen 650 Mg Suppository) 650 mg RECTAL Q4H PRN PRN PRN Reason: Headache(1-10)/Temp>99F Acetaminophen (Acetaminophen 650 Mg/20 Ml Udc) 650 mg NG Q4H PRN PRN PRN Reason: Headache (1-10)/Temp>99F Aspirin (Aspirin 81 Mg Tab.Chew) 81 mg PO DAILY@0800 [facility] Last Admin: 09/15/20 08:08 Dose: 81 mg Documented by: Atorvastatin Calcium (Atorvastatin Calcium 40 Mg Tablet) 40 mg PO QHS [facility] Clopidogrel Bisulfate (Clopidogrel Bisulfate 75 Mg Tablet) 75 mg PO DAILY [facility] Last Admin: 09/15/20 10:13 Dose: 75 mg Documented by: Donepezil HCl (Donepezil Hcl 5 Mg Tablet) 5 mg PO QHS [facility] Enoxaparin Sodium (Enoxaparin 40 Mg/0.4 Ml Syringe) 40 mg SC DAILY [facility] Last Admin: 09/15/20 10:09 Dose: 40 mg Documented by: Furosemide (Furosemide 20 Mg Tablet) 20 mg PO DAILY [facility] Last Admin: 09/15/20 10:10 Dose: 20 mg Documented by: Hydralazine HCl (Hydralazine 20 Mg/Ml Vial) 5 mg IV Q30M PRN PRN Reason: to maintain BP goals Labetalol HCl (Labetalol (Prefilled) 20 Mg/4 Ml) 10 - 20 mg IV Q10M PRN PRN PRN Reason: to Maintain BP Goals Levothyroxine Sodium (Levothyroxine 75 Mcg Tablet) 75 mcg PO DAILY@0600 [facility] Last Admin: 09/15/20 06:03 Dose: 75 mcg Documented by: Melatonin (Melatonin 3 Mg Tablet) 3 mg PO QHS PRN PRN PRN Reason: INSOMNIA Ondansetron HCl (Ondansetron 4 Mg/2 Ml Vial) 4 mg IV Q8H PRN PRN PRN Reason: NAUSEA/VOMITING Sodium Chloride (0.9% Saline Lock 10 Ml Syringe) 10 - 40 ml IV UD PRN PRN Reason: SALINE FLUSH STROKE Vital Signs/Narrative: Vital Signs Temp Pulse Resp BP Pulse Ox 09/15/20 08:24 36.7 C 55 L 16 172/84 H 99 09/15/20 08:11 97 09/15/20 08:10 98 09/15/20 08:00 36.4 C L 54 L 18 170/82 H 98 Medical Necessity - Tobacco Use Smoking Status: Never smoker Assessment/Plan All Active Problems (Last Reviewed 09/15/20 @ 02:[address] Bart Meyers MD) Left-sided weakness (Acute) Elevated troponin (Acute) Confusion (Acute) CVA (cerebral vascular accident) (Acute) 1. acute CVA acute/subacute Right IC CVA on ASA, clopidogrel, atorvastatin still with significant Left sided deficit await echo cardiogram, afterwards will consult [facility] teleneurology for input. 2. encephalopathy I am not sure if he was actually confused, but seems appropriate at this time. The symptoms of confusion may be more associated with the CVA. I would say encephalopathy ruled out given the identified CVA. 3. Dementia: aricept 4. HFpEF: compensated. continue w furosemide, metop succinate, lisinopril 5. elevated troponin: likely 2/2 CVA. on DAPT and statin. check echo, if change, consider cardiology cs 6. Vertebral artery stenosis: await neurology recommendations 7. VTE prophylaxis: enoxaparin 8. Dispostion: dw pt's dtr, Ms. Bernabe, and updated on MRI and current clinical findings. She was initially open to SNF, but I was on speaker with a male who was adamant about the patient not going to a SNF. I explained I am only providing options and stated if they feel they can accommodate pt in ADLs he would eventually be discharged to home with [facility]. Inpatient E&M: [id number] [facility] Hosp L3
--- NOTE | 2020-09-15 14:11 | CASEMGMT ---
SW did not complete a PHQ 9 with patient as he has Dementia. Mary WINTER MSW
--- NOTE | 2020-09-15 14:14 | CASEMGMT ---
OSORIO MURILLO assessment: Phone interview with patient's daughter d/t language barrier/CVA for initial transition planning/care coordination assessment. Pt's primary language is english. OSORIO MURILLO introduced self and role at [facility], daughter voices understanding and consents to assessment at this time. Daughter answers all questions at this time. Care providers, pharmacy, and demographics verified at this time. Presentation: Fall, Stroke, Left sided weakness Admitting dx: CVA PCP: Apryl Specialists: Daughter states no current specialists. Preferred Pharmacy: [facility] Insurance: [facility] A/B, [facility] Prescription Benefit: Yes Living Will/HPOA: Daughter states pt does not have LW/HPOA at this time. LNOK: Chayito Bailon, daughter Living Arrangements: Pt lives with daughter and her family in bi-level home with 8 total steps into home but is on one level once pt is in. Daughter states she has been assisting pt with more ADL's. Transportation: Daughter states pt does not drive but family does and states no transportation concerns at this time. DME/HHC: Pt has the following DME: cane, walker, and shower chair. Daughter states pt has had HHC in the past but has not been to SNF. Daughter is updated on therapy recommendations for IP rehab at this time, explanation of rehab given and daughter states she would like pt to go to IP rehab at discharge at this time to get stronger. Daughter is aware that pt will not be allowed visitors in rehab, voices understanding. All daughters questions answered at this time. Daughter does state concerns that pt may have a UTI and Dr Aury AC aware at this time, voice understanding. Daughter states pt is retired. Daughter states pt does not smoke cigarettes or drink ETOH. Daughter voices no further questions/concerns/needs at this time. Messi HUBBARD updated on preference for IP rehab at discharge, voices understanding. CM to follow for any further questions/concerns/needs at this time. Advised daughter to ask for CM if any further questions/concerns/needs arise, voices understanding. Plan: [facility] [place] OSORIO MURILLO
--- NOTE | 2020-09-15 14:24 | CASEMGMT ---
Addendum entered by Mary Collins 09/15/20 14:28: Dr Liu has accepted patient for the Inpatient Rehab Unit. Mary WILL Original Note: Physical Therapist recommended Inpatient Rehab for patient. RN LIDIA spoke with patient's daughter and she was in agreement with patient going to Inpatient Rehab here at [facility]. HAYDEE called [facility] on [facility] post acute referral line and made referral. Dr Liu will look over patient and [facility] will let HAYDEE know if she accepts patient. Mary WILL
[2020-09-15 16:54] LABS: Bacteria 0 SEEN /hpf (None Seen); Mucous, Urine 0 SEEN /hpf (<or=2+); White Blood Cells 0 SEEN /hpf (0-5)
[2020-09-15 17:16] LABS: Color, Urine Yellow (Yellow); Glucose, Dipstick Normal (Normal); Ketone-Dipstick Negative (Negative); Leukocyte Esterase-Dipstick Negative /ul (Negative); Nitrite-Dipstick Negative (Negative); Occult Blood-Urine 250 /ul (Negative); Protein-Dipstick 30 mg/dl (Negative); Specific Gravity, Urine 1.015 (1.002-1.030); Urine Bilirubin Dipstick Negative (Negative); Urine Clarity Sl. Cloudy (Clear); Urine Urobilinogen Normal (Normal)
[2020-09-15 17:29] LABS: Red Blood Cells-Urine 50-100 SEEN /hpf (0-5)
[2020-09-15 17:30] LABS: Amorphous Sediment 1+ URATE; Squamous Epithelial Cells - UA 5-10 SEEN /hpf (0-5)
--- NOTE | 2020-09-15 21:02 | NURSING ---
used the sign language interpreter service on the ipad to assist with NIH. pt denies needs at this time. encouraged to ask for ipad official court interpreter at any time.
[2020-09-15] MEDS: Donepezil HCl 5 MG Tablet PO (21:05)
[2020-09-15] MEDS: Atorvastatin Calcium 40 MG Tablet PO (21:05)
[2020-09-16] VITALS (12 sets, daily range): BP systolic 116–146; BP diastolic 61–86; PULSE 55–78; RESP 16–18; TEMP 36.2–36.8; O2SAT 91–99; BMI 29.4
[2020-09-16] MEDS: Levothyroxine 75 MCG Tablet PO (05:35)
--- NOTE | 2020-09-16 07:34 | TELEMED_ITS ---
[facility] Telemed has confirmed receipt of a request for visit. This document confirms receipt of the order initiating the consult. To find the results of the consultation, please view the patient's reports for the scanned Telemed Consult.
[2020-09-16] MEDS: Aspirin 81 MG TAB.CHEW PO (10:07)
[2020-09-16] MEDS: Enoxaparin 40 MG/0.4 ML Syringe SC (10:08)
[2020-09-16] MEDS: Clopidogrel Bisulfate 75 MG Tablet PO (10:08)
[2020-09-16] MEDS: Furosemide 20 MG Tablet PO (10:08)
--- NOTE | 2020-09-16 10:12 | DCINST_ITS ---
- Discharge Diagnoses Current Active Problems: Current Active and Chronic Problems (Last Reviewed 09/15/20 @ 02:[address] Bart Meyers MD) Left-sided weakness (Acute) Elevated troponin (Acute) Chronic kidney disease (Chronic) Confusion (Acute) CVA (cerebral vascular accident) (Acute) Hypertension (Chronic) Hypothyroidism (Chronic) Hyperlipemia (Chronic) Diabetes mellitus (Chronic) You will use the following diet at home:: Cardiac Your food should be the consistency of: Regular Your liquids should be the consistency of: Regular/Thin Discharge Activity: Return to Normal Activity Call your doctor if you observe: Fever of 101 or Higher, Shortness of breath Allergies/Adverse Reactions: Allergies No Known Allergies Allergy (Verified 12/10/17 15:49) Medications to take at Discharge Levothyroxine [Synthroid] 75 mcg PO DAILY 04/23/16 Lisinopril [Zestril] 5 mg PO DAILY 04/23/16 furosemide 20 mg tablet 20 mg PO DAILY 11/28/17 Donepezil HCl [Aricept] 5 mg PO QHS 09/14/20 Metoprolol Succinate [Toprol Xl] 25 mg PO DAILY 09/14/20 Acetaminophen [Tylenol Suppository] 650 mg RECTAL Q4H PRN PRN suppos. 09/16/20 Acetaminophen [Tylenol Tablet] 650 mg PO Q4H PRN PRN tablet 09/16/20 Aspirin [Aspirin, Baby] 81 mg PO DAILY@0800 tab.chew 09/16/20 Atorvastatin Calcium [Lipitor] 40 mg PO QHS tab 09/16/20 Clopidogrel Bisulfate [Plavix] 75 mg PO DAILY tablet 09/16/20 Tamsulosin HCl [Flomax] 0.4 mg PO DAILY@1730 cap 09/16/20 Primary Care Physician: Derrick Pink MD [Primary Care Provider] - Within 2 Weeks Test Results: Test results from this visit will be discussed in further detail at your follow- up appointment, if applicable. Please Follow Up With: Nicholas Cobian MD - neurology When: 1-2 months Proposed Discharge Date: 09/16/20
--- NOTE | 2020-09-16 10:15 | DS.PCM_ITS ---
Discharge Date and Diagnosis - Problem List Patient Problems: Active and Suspected Problems (Last Reviewed 09/15/20 @ 02:[address] Bart Meyers MD) Left-sided weakness (Acute) Elevated troponin (Acute) Confusion (Acute) CVA (cerebral vascular accident) (Acute) Date of Admission: 09/14/20 Date of Discharge: 09/16/20 - Primary Discharge Diagnosis Acute Problems: Active Problems (Last Reviewed 09/15/20 @ 02:[address] Bart Meyers MD) Left-sided weakness (Acute) Elevated troponin (Acute) Confusion (Acute) CVA (cerebral vascular accident) (Acute) - Secondary Discharge Diagnosis Chronic Problems: Chronic Problems (Last Reviewed 09/15/20 @ 02:[address] Bart Meyers MD) Chronic kidney disease (Chronic) Hypertension (Chronic) Hypothyroidism (Chronic) Hyperlipemia (Chronic) Diabetes mellitus (Chronic) Hospital Course and Treatment Imaging Results: Clinical Impression(s) from Imaging Studies Brain CT 09/14/20 20:04 IMPRESSION: Age-related and chronic changes of the brain similar to previous study. Electronically Signed: Oscar Baltazar DO at 20:24 EDT Tel [phone], Service support , ADDENDUM: 09/14/202032 IMPRESSION: Age-related and chronic changes of the brain similar to previous study. N.B. : The above information has been verbally conveyed by Oscar Baltazar DO to Suma Samuels DO on 09/14/2020 20:26:38 (ET). 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 Electronically Signed: Oscar Baltazar DO at 21:34 EDT Tel [phone], Service support , Chest X-Ray 09/14/20 21:00 IMPRESSION: Central pulmonary vascular prominence. Electronically Signed: Oscar Baltazar DO at 21:22 EDT Tel [phone], Service support , Brain MRI 09/15/20 08:30 IMPRESSION: Involutional changes of the brain, as described above. 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 Electronically Signed: Andrea Jarquin MD at 9:58 EDT Tel , Service support , ADDENDUM: 09/15/20 1013 IMPRESSION: Involutional changes of the brain, as described above. 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 N.B. : The above information has been verbally conveyed by Andrea Jarquin MD to Antolin So RN, on 09/15/2020 10:06:20 (ET). Electronically Signed: Andrea Jarquin MD at 9:58 EDT Tel , Service support , Operations: None Procedures: 2-D Echocardiogram - The estimated ejection fraction is 55 %. Diastolic function is indeterminate. Hypokinesis of a portion of the lateral and posterior glass. The study was technically difficult. Contrast injection was performed. Summary of Care Provided: The patient is a 80 year old M resents with a left-sided weakness. Patient had an MRI that showed a right internal capsule CVA. Echocardiogram was performed and difficult to rotation but showed an EF of 55%. [place] [facility] [place] who advised 3 weeks to antiplatelet therapy with aspirin and clop idogrel and high intensity statin. Afterwards, patient would be on monotherapy with clopidogrel. Did discuss with neurology about the need for event monitor. [place] that the likelihood of this being embolic would be very low and felt that it would be low yield to do a event monitor. Patient will be discharged to acute rehab this afternoon. 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 Case discussed with the patient's daughter and has been made aware of the findings of tests. [] Patient Problems: Active and Suspected Problems (Last Reviewed 09/15/20 @ 02:[address] Bart Meyers MD) Left-sided weakness (Acute) Elevated troponin (Acute) Confusion (Acute) CVA (cerebral vascular accident) (Acute) - Physical Exam Vitals/I&O's: Vital Signs Temp Pulse Resp BP Pulse Ox 36.4 C L 65 18 137/71 H 94 09/16/20 08:46 09/16/20 08:46 09/16/20 08:46 09/16/20 08:46 09/16/20 08:50 Oxygen Delivery Method Room Air Weight: 80.2 kg Body Mass Index (BMI) 29.4 Finger Stick Blood Glucose 154 Intake and Output for Last 24 Hours 09/14/20 09/15/20 09/16/20 23:59 23:59 23:59 Intake Total 360 / 460 160 / 160 Output Total 50 / 50 Balance 360 / 460 110 / 110 General: Alert, No apparent distress HEENT: Atraumatic, Normocephalic Oral: Moist Mucosa, No Gingival or Mucosal Lesions/ Ulcerations Neck: No Nodes, Thyroid Normal Size and Texture Lungs: Clear to auscultation, Normal air movement, No rhonchi, No wheeze Cardiovascular: Regular rate, Regular Rhythm, Normal S1, Normal S2, No murmurs Abdomen: Bowel Sounds Present, Soft, Non Tender, Non-Distended Neurological: - - MS 1/5 in LUE and 0/5 in LLE. Psych/Mental Status: Normal Affect, Appropriate Laboratory Results 09/15/20 16:45: Urine Color Yellow, Urine Clarity Sl. Cloudy, Urine pH 5.0, Ur Specific [place] 1.015, Urine Protein 30 H, Urine Glucose (UA) Normal, Urine Ketones Negative, Urine Occult Blood 250 H, Urine Nitrite Negative, Urine Bilirubin Negative, Urine Urobilinogen Normal, Ur Leukocyte Esterase Negative, Urine RBC 50-100 SEEN, Urine WBC 0 SEEN, Ur Squamous Epith Cells 5-10 SEEN, Amorphous Sediment 1+ URATE, Urine Bacteria 0 SEEN, Urine Mucus 0 SEEN Current Medications Acetaminophen (Acetaminophen 325 Mg Tablet) 650 mg PO Q4H PRN PRN PRN Reason: Headache(1-10)/Temp>99.6F Acetaminophen (Acetaminophen 650 Mg Suppository) 650 mg RECTAL Q4H PRN PRN PRN Reason: Headache(1-10)/Temp>99F Acetaminophen (Acetaminophen 650 Mg/20 Ml Udc) 650 mg NG Q4H PRN PRN PRN Reason: Headache (1-10)/Temp>99F Aspirin (Aspirin 81 Mg Tab.Chew) 81 mg PO DAILY@0800 [facility] Last Admin: 09/16/20 10:07 Dose: 81 mg Documented by: Atorvastatin Calcium (Atorvastatin Calcium 40 Mg Tablet) 40 mg PO QHS [facility] Last Admin: 09/15/20 21:05 Dose: 40 mg Documented by: Clopidogrel Bisulfate (Clopidogrel Bisulfate 75 Mg Tablet) 75 mg PO DAILY [facility] Last Admin: 09/16/20 10:08 Dose: 75 mg Documented by: Donepezil HCl (Donepezil Hcl 5 Mg Tablet) 5 mg PO QHS [facility] Last Admin: 09/15/20 21:05 Dose: 5 mg Documented by: Enoxaparin Sodium (Enoxaparin 40 Mg/0.4 Ml Syringe) 40 mg SC DAILY [facility] Last Admin: 09/16/20 10:08 Dose: 40 mg Documented by: Furosemide (Furosemide 20 Mg Tablet) 20 mg PO DAILY [facility] Last Admin: 09/16/20 10:08 Dose: 20 mg Documented by: Hydralazine HCl (Hydralazine 20 Mg/Ml Vial) 5 mg IV Q30M PRN PRN Reason: to maintain BP goals Labetalol HCl (Labetalol (Prefilled) 20 Mg/4 Ml) 10 - 20 mg IV Q10M PRN PRN PRN Reason: to Maintain BP Goals Levothyroxine Sodium (Levothyroxine 75 Mcg Tablet) 75 mcg PO DAILY@0600 [facility] Last Admin: 09/16/20 05:35 Dose: 75 mcg Documented by: Melatonin (Melatonin 3 Mg Tablet) 3 mg PO QHS PRN PRN PRN Reason: INSOMNIA Ondansetron HCl (Ondansetron 4 Mg/2 Ml Vial) 4 mg IV Q8H PRN PRN PRN Reason: NAUSEA/VOMITING Sodium Chloride (0.9% Saline Lock 10 Ml Syringe) 10 - 40 ml IV UD PRN PRN Reason: SALINE FLUSH Tamsulosin HCl (Tamsulosin Hcl 0.4 Mg Capsule) 0.4 mg PO DAILY@1730 [facility] Discharge Diet: Low fat/ Low Cholesterol Discharge Activity: Return to Normal Activity Call your doctor if you observe: Fever of 101 or Higher, Shortness of breath Home Medications: Medications to take at Discharge Levothyroxine [Synthroid] 75 mcg PO DAILY 04/23/16 Lisinopril [Zestril] 5 mg PO DAILY 04/23/16 furosemide 20 mg tablet 20 mg PO DAILY 11/28/17 Donepezil HCl [Aricept] 5 mg PO QHS 09/14/20 Metoprolol Succinate [Toprol Xl] 25 mg PO DAILY 09/14/20 Acetaminophen [Tylenol Suppository] 650 mg RECTAL Q4H PRN PRN suppos. 09/16/20 Acetaminophen [Tylenol Tablet] 650 mg PO Q4H PRN PRN tablet 09/16/20 Aspirin [Aspirin, Baby] 81 mg PO DAILY@0800 tab.chew 09/16/20 Atorvastatin Calcium [Lipitor] 40 mg PO QHS tab 09/16/20 Clopidogrel Bisulfate [Plavix] 75 mg PO DAILY tablet 09/16/20 Tamsulosin HCl [Flomax] 0.4 mg PO DAILY@1730 cap 09/16/20 Primary Care Physician: Derrick Pink MD [Primary Care Provider] - Within 2 Weeks Please Follow Up With: Nicholas Cobian MD - neurology When: 1-2 months Disposition: Inpt Rehab Unit/Facility Minutes spent on discharge:: 35 Patient Condition:: Stable Medical Necessity - Tobacco Use Smoking Status: Never smoker Meaningful Use Info Meaningful Use Diagnoses (Choose all that apply): Ischemic CVA - CVA Therapy Assessed for PT,OT and/or ST?: Yes - Ischemic Stroke Antithrombotic order at d/c?: Yes Dx of Atrial fib/flutter?: No Anticoagulant at discharge?: No Reason anticoagulant not ordered: Treatment not Indicated Statins at discharge?: Yes Primary Dx Acute Ischemic CVA?: Yes IV tPA ordered during stay?: No Reason IV t-PA not ordered: Treatment not Indicated Inpatient E&M: [id number] Disch Hosp
--- NOTE | 2020-09-16 10:54 | CASEMGMT ---
SW called patient's daughter, Chayito. HAYDEE introduced self and role at [facility]. Physician and RN LIDIA already spoke with her regarding patient going to [facility] 4th floor Rehab Unit. SW asked her if she had any questions regarding Rehab Unit. She asked if he needs clothes. SW went over items she should bring in for patient. SW told her she can bring items to the front entrance and tell them who they are for and where is is located. She is aware there are no visitors. HAYDEE gave her the phone number to the Rehab Unit. HAYDEE let her know he will go over today after 3p. Plan: d/c to [facility] 4th floor Inpatient Rehabilitation Unit. Mary WINTER MSW
--- NOTE | 2020-09-16 15:09 | NURSING ---
Read and reviewed SN documentation
[2020-09-16] MEDS: 0.9% Saline Lock 10 ML Syringe IV (15:23)
--- NOTE | 2020-09-16 15:24 | NURSING ---
Report given to [facility]-Inpatient Rehab
== END 2020-09-16 15:51 | DRG 68 ==
LOC: ED 22:54 → PCU 22:59
PROVIDERS: Admitting Provider Hospitalist; Emergency Provider Emergency Medicine; PCP Family Medicine
DX: I65.09 Occlusion and stenosis of unspecified vertebral artery (principal); G81.94 Hemiplegia, unspecified affecting left nondominant side; I13.0 Hypertensive heart and chronic kidney disease with heart failure and stage 1 through stage 4 chronic kidney disease, or unspecified chronic kidney disease; I50.32 Chronic diastolic (congestive) heart failure; R47.01 Aphasia; E11.22 Type 2 diabetes mellitus with diabetic chronic kidney disease; N18.30 Chronic kidney disease, stage 3 unspecified; R29.705 NIHSS score 5; E03.9 Hypothyroidism, unspecified; E78.5 Hyperlipidemia, unspecified; F03.90 Unspecified dementia, unspecified severity, without behavioral disturbance, psychotic disturbance, mood disturbance, and anxiety; Z79.890 Hormone replacement therapy; Z79.899 Other long term (current) drug therapy
CPT/HCPCS: 36415; 70450; 70496; 70498; 70551; 71045; 80048; 80061; 81001; 82550; 83036; 84484; 85025; 85610; 85730; 87086; 92523; 92610; 93005; 93306; 94762; 97112; 97162; 97166; 97530; 97802; 99285; Q9957; Q9967; A4216; C8929

== ENCOUNTER 2020-09-16 15:52 | Inpatient (IN) | payer MEDICARE, MEDICAID, SELFPAY ==
[2020-09-16 05:00] VITALS: BMI 29.4
[2020-09-16 15:55] VITALS: BP 147/92; PULSE 56; RESP 16; TEMP 36.8; O2SAT 94; BMI 29.4
--- NOTE | 2020-09-16 17:35 | PCM.HP.STD ---
Problem List (1) Diabetes mellitus type 2, controlled Status: Chronic Qualifiers: Diabetes mellitus complication status: with neurologic complications (2) Chronic renal failure, stage 3 (moderate) Status: Chronic Qualifiers: Chronic kidney disease stage 3 subtype: stage 3a (GFR 45-59) Qualified Code(s): N18.31 - Chronic kidney disease, stage 3a (3) Left-sided weakness Status: Acute Comment: due to acute/subacute R posterior limb of the internal capsule (4) Elevated troponin Status: Acute Comment: etiology undetermined (5) CVA (cerebral vascular accident) Status: Acute Qualifiers: Laterality of affected vessel: right Comment: ischemic R CVA of the posterior limb of the internal capsule. Also with multiple white matter hyperintensities distributed throughout the deep white matter tracts of the bilateral cerebral hemispheres consistent with moderate chronic white matter ischemic changes. (6) Hypertension Status: Chronic (7) Hypothyroidism Status: Chronic (8) Hyperlipemia Status: Chronic (9) Stenosis of left vertebral artery Status: Chronic (10) Dementia Status: Chronic Comment: On Aricept (11) BPH (benign prostatic hyperplasia) Status: Chronic (12) Microscopic hematuria Status: Acute Comment: With urate crystals present (13) Encephalopathy acute Status: Acute Comment: due to CVA in pt with underlying dementia (14) Diabetic peripheral neuropathy associated with type 2 diabetes mellitus Status: Chronic (15) Pulmonary hypertension Status: Chronic Comment: Right ventricular systolic pressure estimated at 40-45 on echocardiogram in August 2020 History of Present Illness Date of Admission: 09/16/20 Chief Complaint: Physical debility secondary to recent right posterior limb of the internal capsule ischemic CVA with left hemiplegia, dysarthria and left facial droop The patient is a 80 year old M with a past medical history of hypertension, hyperlipidemia, hypothyroidism, diabetes mellitus type 2, diabetic peripheral polyneuropathy, heart failure with preserved ejection fraction, dementia ( on Aricept), BPH and chronic renal failure stage 3a who was brought to the Ed at [facility] on 09/14/2020 when his family found him lying on the floor with left-sided weakness. He was confused. He was last known well 10 hours prior to being brought to the ED. a noncontrasted CT brain showed chronic involutional changes with tiny lacunar infarcts in the thalami bilaterally. A CTA of the brain and neck showed possible focal moderate to severe stenosis near the origin of the left vertebral artery. [facility] telestroke was contacted and they did not recommend TPA because he was outside the window for TPA. The patient was not on an antiplatelet agent at presentation to the emergency department. He was started on aspirin and the stroke protocol was initiated. An MRI was obtained the following morning and it showed involutional changes of the brain with acute/subacute white matter infarct of the posterior limb of the right internal capsule. An echocardiogram showed a 55% left ventricular ejection fraction with indeterminate diastolic function. Both the right and left atrium were of normal size. Bubble contrast study was negative for right to left interatrial shunt. There was no significant valvular heart disease. The pulmonary artery systolic pressure was estimated at 40-45. There was hypokinesis of a portion of the lateral and posterior glass. CBC was unremarkable. The BUN was 30 with a creatinine of 1.36 and his hemoglobin A1c was 6.6. Lipid panel showed a total cholesterol of 222 with an LDL of 136 and an HDL of 51. Triglycerides were within normal limits. The initial troponin was 0.233 and the third troponin was 0.292. Consult was obtained with [facility] neurology on 09/16/2020 prior to transfer to the inpatient rehab unit. His NIH stroke scale score was 10. Dual antiplatelet therapy was recommended for 3 weeks and then to continue monotherapy lifelong. [facility] recommended increasing the atorvastatin to 80 mg daily. He had no atrial fibrillation while on telemetry. Neurology was specifically asked if he should have an event monitor and they felt the likelihood of this stroke being embolic was low and felt that it would be a low yield to do an event monitor. He was transferred to the Inpt rehab unit on 09/16/20 for > 3 hours of therapy daily to restore him at or near his prior level of function. He was seen by speech therapy on 09/15/1930 and approved for regular textures and thin liquids. I talked to his dtr Chayito whom he lives with. He has in the past been on Risperdal for hallucinations. He is not currently on Risperdal. She feels that he has been depressed for the past year and he has told her that he wants to and be with his . He has never been on treatment for depression. We discussed code status and I explained the different options. she has talked with her dad about this and he would like to be DNR CCA. She is aware that he had an extension of the stroke today and I told her I believe he has visual field cuts to the left now and he can not move the left arm and leg at all now. Her plan is to take him home and care for him when he is discharged from rehab. Past Medical History Past Medical History (Chronic Problems): Chronic Problems (Last Reviewed 09/16/20 @ 18:[address] Tri Liu DO) Diabetes mellitus type 2, controlled (Chronic) Chronic renal failure, stage 3 (moderate) (Chronic) Stenosis of left vertebral artery (Chronic) Dementia (Chronic) On Aricept BPH (benign prostatic hyperplasia) (Chronic) Diabetic peripheral neuropathy associated with type 2 diabetes mellitus (Chronic) Pulmonary hypertension (Chronic) Right ventricular systolic pressure estimated at 40-45 on echocardiogram in August 2020 Hypertension (Chronic) Hypothyroidism (Chronic) Hyperlipemia (Chronic) Medical History: Medical History (Last Reviewed 09/16/20 @ 18:[address] Tri Liu DO) Hypertension (Chronic) I10 Hypothyroidism (Chronic) E03.9 Hyperlipemia (Chronic) E78.5 CKD (chronic kidney disease) N18.9 SVT (supraventricular tachycardia) I47.1 Allergies No Known Allergies Allergy (Verified 12/10/17 15:49) Home Medications: Ambulatory Orders Medication Instructions Recorded Levothyroxine [Synthroid] 75 mcg PO DAILY 04/23/16 Lisinopril [Zestril] 5 mg PO DAILY 04/23/16 furosemide 20 mg tablet 20 mg PO DAILY 11/28/17 Donepezil HCl [Aricept] 5 mg PO QHS 09/14/20 Metoprolol Succinate [Toprol Xl] 25 mg PO DAILY 09/14/20 Acetaminophen [Tylenol Suppository] 650 mg RECTAL Q4H PRN PRN suppos. 09/16/20 Acetaminophen [Tylenol Tablet] 650 mg PO Q4H PRN PRN tab 09/16/20 Aspirin [Aspirin, Baby] 81 mg PO DAILY@0800 09/16/20 Atorvastatin Calcium [Lipitor] 40 mg PO QHS 09/16/20 Clopidogrel Bisulfate [Plavix] 75 mg PO DAILY 09/16/20 Tamsulosin HCl [Flomax] 0.4 mg PO DAILY@1730 09/16/20 Surgical History: Surgical History (Last Reviewed 09/16/20 @ 18:[address] Tri Liu DO) H/O umbilical hernia repair Z98.890, Z87.19 Surgical History: - - Removal of the umbilicus Psychiatric History: No pertinent psych hx Lives: With Family - he lives with his dtr Chayito Smoking Status: Never smoker Tobacco Use: Non-smoker Alcohol: None Drugs: None - *Family History Maternal Family History: Family History (Last Reviewed 09/16/20 @ 18:[address] Tri Liu DO) Father Diabetes Hypertension Kidney disease History Items: Unknown Paternal Family History: Family History (Last Reviewed 09/16/20 @ 18:[address] Tri Liu DO) Father Diabetes Hypertension Kidney disease History Items: Unknown Sibling Family History: Family History (Last Reviewed 09/16/20 @ 18:[address] Tri Liu DO) Father Diabetes Hypertension Kidney disease History Items: Unknown Review of Systems Constitutional: Reports: Weakness. Denies: Anorexia, Chills, Fever, Weight Change Eyes: Denies: Vision Change HEENT: Reports: Visual Changes. Denies: Difficulty Swallowing, Head Aches, Sinus Congestion, Sinus Drainage Cardiovascular: Denies: Chest Pain, Edema, Palpitations Respiratory: Denies: Cough, Shortness of Breath, Shortness of breath at rest, Sputum production - per his nurse on PCU...and he is not coughing Gastrointestinal: Denies: Abdominal Pain, Nausea, Vomiting Genitourinary: Denies: Dysuria Musculoskeletal: Denies: Neck Pain Skin: Denies: Jaundice, Rash, Wounds Neurological: Reports: Change in Speech, Slurred speech, Confusion, Focal weakness. Denies: Numbness, Tingling, Seizures Psychiatric: Reports: Depression, - - no homicidal ideation but he has talked to his dtr about wanting to and be with his . Denies: Anxiety, Homicidal Ideations, Suicidal Ideations Endocrine: Denies: Change in Body Habitus Hematologic/ Lymphatic: Denies: Easy Bruising, Easy Bleeding, Hx of blood clot Unable to obtain accurate/complete ROS d/t: lot of the ROS I discussed with his dtr VTE Information - Inpt Only VTE Present on Admission: No VTE Mechan Device Prophylaxis: SCD's, Knee High RODRIGUEZ Hose VTE Pharm Prophylaxis ordered?: No Reason prophylaxis not ordered:: Treatment Not Indicated - pharmacologic tx is being held because the stroke extended and because it is larger he is at risk for hemorrhagic conversion. Patient Problems: Active and Suspected Problems (Last Reviewed 09/16/20 @ 18:[address] 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 Also with multiple white matter hyperintensities distributed throughout the deep white matter tracts of the bilateral cerebral hemispheres consistent with moderate chronic white matter ischemic changes. Microscopic hematuria (Acute) With urate crystals present Encephalopathy acute (Acute) due to CVA in pt with underlying dementia - Physical Exam Vitals/I&O's: Vital Signs Temp Pulse Resp BP Pulse Ox 98.2 F 56 L 16 147/92 H 94 09/16/20 15:55 09/16/20 15:55 09/16/20 15:55 09/16/20 15:55 09/16/20 15:55 Weight: 176 lb 12.972 oz Body Mass Index (BMI) 29.4 Finger Stick Blood Glucose 154 General: Alert, Cooperative, No apparent distress, - - he is oriented to person but can not tell me his age or the month of the year HEENT: Atraumatic, Normocephalic, - - The pupils are equal, round and reactive to light. He can not track my finger horizontally past midline to the left. The tongue is deviated to the left and he has a left facial droop. Oral: No Gingival or Mucosal Lesions/ Ulcerations, Dry Mucosa Neck: Supple, Negative Carotid Bruits, No Nodes, No Nuchal Rigidity, Trachea Midline Lungs: Clear to auscultation - ANTERIOR AND LATERAL, No rhonchi, No wheeze, No rales, - - He is not tachypneic and is not using any accessory muscles of respiration. Cardiovascular: Regular rate, Regular Rhythm, Normal S1, Normal S2, No murmurs, No Ectopic Activity, No rub noted, No Gallop Abdomen: Bowel Sounds Present, Soft, Non Tender, Non-Distended, - - No guarding with palpation and he denies abdominal pain. Extremities: No clubbing, No cyanosis, No edema, No Calf Tenderness, Peripheral Pulses Normal - in the UE's, mildly decreased in the feet Skin: No rashes, No breakdown Musculoskeletal: No Muscle Wasting Neurological: - - see [facility] under A/P Psych/Mental Status: - - He is calm and appropriate at the present time. Current Medications Acetaminophen (Acetaminophen 325 Mg Tablet) 650 mg PO Q4H PRN PRN PRN Reason: Headache(1-10)/Temp>99.6F Aspirin (Aspirin 81 Mg Tab.Chew) 81 mg PO DAILY@0800 [facility] Atorvastatin Calcium (Atorvastatin Calcium 40 Mg Tablet) 40 mg PO QHS WILLY Bisacodyl (Bisacodyl 10 Mg Suppository) 10 mg RECTAL .PRN X 1 PRN PRN Reason: Constipation Clopidogrel Bisulfate (Clopidogrel Bisulfate 75 Mg Tablet) 75 mg PO DAILY WILLY Donepezil HCl (Donepezil Hcl 5 Mg Tablet) 5 mg PO QHS [facility] Furosemide (Furosemide 20 Mg Tablet) 20 mg PO DAILY [facility] Levothyroxine Sodium (Levothyroxine 75 Mcg Tablet) 75 mcg PO DAILY@0600 [facility] Lisinopril (Lisinopril 5 Mg Tablet) 5 mg PO DAILY [facility] Magnesium Hydroxide (Magnesium Hydroxide 30 Ml Udc) 30 ml PO .PRN X 1 PRN PRN Reason: Constipation Metoprolol Succinate (Metoprolol(Xl)Succ 25 Mg Tablet) 25 mg PO DAILY [facility] Senna/Docusate Sodium (Senna/Docusate Sodium 1 Tablet) 2 tablet PO BID [facility] Sodium Chloride (0.9% Saline Lock 10 Ml Syringe) 10 - 40 ml IV UD PRN PRN Reason: SALINE FLUSH Tamsulosin HCl (Tamsulosin Hcl 0.4 Mg Capsule) 0.4 mg PO DAILY@1730 [facility] Assessment/Plan All Active Problems (Last Reviewed 09/16/20 @ 18:[address] Tri Liu, DO) Left-sided weakness (Acute) Elevated troponin (Acute) CVA (cerebral vascular accident) (Acute) Microscopic hematuria (Acute) Encephalopathy acute (Acute) Impressions 1. 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 Now with visual field cut, dysarthria, L facial droop and he is flaccid in the left arm and leg. 2. acute encephalopathy on chronic dementia 3. HTN 4. Hyperlipidemia 5. Hypothyroidism -troponin was elevated to 4.35 in May 2020 and the patient cannot tell me if his levothyroxine was increased at that time. 6. History of heart failure with preserved ejection fraction 7. Wall motion abnormalities in the posterior and lateral wall of the heart on recent echocardiogram in a patient with previously uncontrolled diabetes mellitus type 2, untreated hyperlipidemia and hypertension. This indicates to me he most likely has coronary artery disease, especially since he has had lacunar infarcts in the past and has fairly diffuse white matter ischemic change in the brain. There is no history of a stress test in the prior medical record it was at their [facility]. 8. Elevated troponin - presumed to be due to stroke but, I do not think we can r/o cardiac ischemia at this time. 9. Chronic renal failure stage III a 10. mild pulmonary HTN with a RV systolic estimated at 40-45 Why? 11. BPH 12. hx of an abnormal EKG in the past 13. Diabetic peripheral polyneuropathy 14. Longstanding diabetes mellitus type 2-currently diet controlled with a hemoglobin A1c of 6.6 at presentation to the hospital 15. Left vertebral artery stenosis 16. Microscopic hematuria with normal PT and PTT 17. History of hallucinations in the past-on respite all at 1 time PLAN PT for gait stability OT for ADL's ST for evaluation Analgesics as needed - limit to Tylenol for now Bowel protocol Fall precautions Assess for Anxiety/Depression GI prophylaxis -not necessary at this time. He has no nausea, no epigastric pain and he is eating full meals. DVT prophylaxis with SCDs and RODRIGUEZ hose. Due to the recent extension of his stroke today will hold off on pharmacologic prophylaxis until a follow-up CT scan is obtained to rule out hemorrhagic transformation. Follow up with Dr. Derrick Pink and neurology following DC from IP Rehab. Depending on how he does in acute rehab a palliative/hospice care consult may be appropriate at some point. His daughter wishes to take him home and care for him post discharge. AM lab including CMP, Mag and Phos, troponin EKG now If there is no QT prolongation will order PRN Haldol PRN for severe agitation Overnight trending pulse ox Start sertraline 25 mg p.o. daily for depression Repeat lipid panel and liver panel in 6 to 8 weeks Check a TSH and if it is still above normal will likely increase the levothyroxine Permissive hypertension for the next 24 to 48 hours given extension of the stroke today Current NIH 1. LOC Alert: 0 2. LOC/Orientation: +2 3. LOC Commands: +1 4. Horizontal extraocular movements : +2 5. Visual lindsay: +1 6. Facial Paresis: +1 7. Dysarthria: +1 8. Best Language/aphasia: Cannot evaluate because the patient is [place]-speaking but understands some Kinyarwanda. He was able to say the word March when I asked him what the month was and he answers yes and no but is not saying anything else. His dtr did tell me that she alerted PCU this AM to a problem because he was confused and not talking the same on the phone to her today 9. Motor Left ARM : +4 10. Motor Left LEG: +4 11. Motor Right ARM: 0 12. Motor Right leg LE 13. Limb ataxia: 0 14. Sensory: +1 15. Neglect: 0 NIH is 17 It was 10 on the exam by the [facility] physician earlier today and it was 5 in the ED on 09/14/20. Inpatient E&M: [id number] Init Hosp L3
[2020-09-16] MEDS: Tamsulosin HCl 0.4 MG Capsule PO (18:46)
--- NOTE | 2020-09-16 18:57 | EKG12_ITS ---
Test Reason : ELEVATE TROPONIN Blood Pressure : / mmHG Vent. Rate : 063 BPM Atrial Rate : 063 BPM P-R Int : 166 ms QRS Dur : 118 ms QT Int : 464 ms P-R-T Axes : 111 -22 135 degrees QTc Int : 474 ms Normal sinus rhythm Incomplete left bundle branch block ST/T Wave Abnormality:Consider Lateral Ischemia Abnormal ECG Confirmed by DISHA STROUD, SANTOS ([id number]), networking technology instructor SHAHNAZ ROGER ([id number]) on 09/21/2020 10:51:46 AM Referred By: Tri Liu Confirmed By:SANTOS GAUTHIER MD
--- NOTE | 2020-09-16 19:33 | CT_ITS ---
STUDY: CT BRAIN WITHOUT CONTRAST REASON FOR EXAM: Male, 80 years old. CVA. RADIATION DOSAGE (If Supplied By Facility): CTDIvol = ( 44.99 ) mGy, DLP = ( 745.49 ) mGycm TECHNIQUE: Transaxial CT imaging of the brain was performed without administration of intravenous contrast material. Individualized dose optimization techniques were used for this CT. COMPARISON: MRI of the brain, 09/15/2020. CT of the head, 09/14/2020. FINDINGS: Normal soft tissue structures. Normal calvarium. There is mild cerebral atrophy with widening of the extra-axial spaces and ventricular dilatation. There are areas of decreased attenuation within the white matter tracts of the supratentorial brain, consistent with microvascular disease changes. The remote linear infarcts in both basal ganglia and thalami. Normal brainstem. Normal cerebellum. There is no intracranial hemorrhage. There are no findings of an acute ischemic infarction. Normal visualized paranasal sinuses. CT/Brain/Head without Contrast IMPRESSION: Chronic involutional changes without evidence of acute intracranial or calvarial abnormality. Electronically Signed: Theodore Richards DO at 20:09 EDT Tel [phone], Service support ,
[2020-09-16 19:36] VITALS: O2SAT 95
--- NOTE | 2020-09-16 19:42 | REHABEVAL_ITS ---
Admission Information Primary Diagnosis:: Post stroke debility with left facial droop, dysarthria, cannot rule out aphasia, left hemiplegia and encephalopathy Actual Problem List:: Cognitve Impr/Memory Loss, Depression, Mobility Impaired, Self Care Deficit, Ineffective Communication, Diabetes, Hyperglycemia, BP, Hypertension, Alteration-Leisure Activ. Potential Problem List:: DVT, Bleeding, Infection, UTI, Aspiration, Falls, Skin Integrity, Depression Risk of Complications DVT: RODRIGUEZ Hose, Sequential Compression Device Bleeding: Monitor Lab Values, Nursing to Teach Precautions for anti-coagulation therapy., Wound, if applicable, to be assessed every shift., Stroke patients assessed for lethargy or change in status. Infection: Clinical Staff to Monitor for S/S of infection:, S/S of infection include fever, redness, warmth, etc. Urinary Tract Infection: Monitor for frequency, burning, discomfort, or incontinence., Nursing will obtain urine sample for urinalysis and C&S when ordered. Aspiration: Clinical staff will monitor for coughing, drooling, congestion., Speech will evaluate swallowing and dsyphasia., Nursing will monitor patient swallowing during meals. Falls: Patient will be evaluated for Fall Precautions, Patient will be placed on Fall Precautions as indicated per protocol. Skin Breakdown: Nursing will assess skin daily using assessment tool., Nursing will place on Skin Breakdown Precautions as indicated. Pain: Clinical staff will assess patient's pain level per protocol., Medications will be given, if needed, and the pain level reassessed., Other methods: Massage, distraction, decrease stimulus, etc. used PRN. Plan of Care Patient requires physician specializing in physical medicine and rehab oversight to provide close medical supervision of rehab issues including: Pain Management, Sleep Problems, Bowel and Bladder, Medical and co-morbidity Management, DVT prophylaxis, Rehabilitation Leadership, Coordination of treatment team Patient needs Physical Therapy: For a minimum of 1 hour, At least 5 out of 7 days Patient needs Physical Therapy to improve:: Mobility, Mobility, Mobility, Strengthening, Transfers, Stretching, ROM, Endurance, Stairs, Gait, Balance Patient needs Occupational Therapy: For a minimum of 1 hour, At least 5 out of 7 days Patient needs Occupational Therapy to improve ADL's incl.: Eating, Grooming, Bathing, Dressing, Toileting, Toilet transfers, Community Reintegration, Higher functioning activities, Household tasks, Adaptive Equipment, Splinting, Other activities as determined Patient requires speech therapy: For a minimum of 1 hour, At least 5 out of 7 days Patient requires speech therapy for: Swallowing, Cognition, Language Skills, Compensatory Strategies Patient requires 24/ Rehabilitation Nursing for: Pain Issues, Identifying and preventing risk factors, Monitoring and reporting current medical conditions, Assisting with ambulation, transfer, and all ADL's, Teaching patients about disease process and medications, Family teaching, Providing safe environment, Bowel and Bladder Issues, Skin integrity, Medication Management Patient needs Assistant Golf Course Superintendent/ Case Management for: Discharge Planning, Arranging Home Equipment or Services, Family Interventions Patient needs Dietary and Nutrition Services for: Adequate Nutrition, Nutritional Supplements, Nutritional Education Goals Patient will remain: free from falls, or injury at time of discharge. Patient will perform bed mobility at: - - Will perform sit to stand with least restrictive device and standby assist Patient will complete transfers from bed to chair at: - - Will sit at the edge of bed independently for 3 minutes with no loss of balance. He will transfer with moderate assistance and least restrictive device. Patient will ambulate: with standby assist, with LRD Patient will complete upper body dressing at: - - RASHAD Patient will complete lower body dressing at: - - RASHAD with AE Patient will complete toileting at: - - MODA Patient will perform bathing at: - - MODA Patient will complete grooming at: MOD I level of assist. Patient will complete home management skills at: MOD I level of assist. Patient will achieve: - - N/A Patient will have pain level of: of 3 or less Patient's skin will: remain intact, free from infection. Patient will receive: adequate nutrition. Discharge Planning Estimated Length of stay (days): 28 Anticipated D/C Destination: Home with Home Health - Dtr will be taking him home and will have a talk with her about hospice to help with sx management Was Preadmission Assessment Accurate?: Yes
[2020-09-16 20:16] LABS: Bedside Glucose 82 mg/dL (70-110)
[2020-09-16 20:21] VITALS: PULSE 63; O2SAT 97
[2020-09-16 22:00] VITALS: BP 145/82; PULSE 59; RESP 16; TEMP 36.7; O2SAT 93
[2020-09-16 22:30] LABS: Bedside Glucose 168 mg/dL (70-110)
[2020-09-16] MEDS: Donepezil HCl 5 MG Tablet PO (22:41)
[2020-09-16] MEDS: Atorvastatin Calcium 80 MG Tablet PO (22:41)
[2020-09-16] MEDS: Senna/Docusate Sodium 1 Tablet 2 TABLET PO (22:41)
[2020-09-16] MEDS: Insulin Lispro 100 UNIT/ML INSULN.PEN SC (22:41)
[2020-09-17] MEDS: Levothyroxine 75 MCG Tablet PO (04:44)
[2020-09-17 06:31] LABS: Bedside Glucose 140 mg/dL (70-110)
[2020-09-17 08:00] VITALS: BP 117/60; PULSE 62; RESP 18; TEMP 36.6; O2SAT 94
--- NOTE | 2020-09-17 08:00 | NURSING ---
Night nurse reported patient choked this AM on water. Lungs were diminished. Up in chair x 3 assist for meal and nursing did nectar thickened liquids at this time. This nurse assessed patient's intake and no choking or coughing observed and did well. No clearing of throat. Will continue to monitor and supervise. Dr. Liu made aware and will change diet order.
[2020-09-17 08:07] VITALS: PULSE 62
[2020-09-17] MEDS: Metoprolol(XL)Succ 25 MG Tablet PO (08:07)
[2020-09-17] MEDS: Sertraline 50 MG Tablet 25 MG PO (08:07)
[2020-09-17] MEDS: Clopidogrel Bisulfate 75 MG Tablet PO (08:07)
[2020-09-17] MEDS: Furosemide 20 MG Tablet PO (08:07)
[2020-09-17] MEDS: Aspirin 81 MG TAB.CHEW PO (08:08)
[2020-09-17] MEDS: Lisinopril 5 MG Tablet PO (08:08)
[2020-09-17] MEDS: Senna/Docusate Sodium 1 Tablet 2 TABLET PO (08:10)
[2020-09-17 09:23] LABS: ALB/GLOB Ratio 0.9 RATIO (0.9-2.4); AST(SGOT) 32 U/L (15-37); Alanine Aminotransfer ALT/SGPT 27 U/L (16-61); Albumin, Serum 3.3 g/dL (3.2-5.0); Alkaline Phosphatase 61 U/L (45-117); Anion Gap 8 (5-15); BUN 31 mg/dL (7-18); Calcium,Total 8.6 mg/dL (8.5-10.1); Chloride 105 mmol/L (98-107); Creatinine, Serum 1.41 mg/dL (0.70-1.30); EST Glomerular Filtration Rate 51 mL/min (>60); Est Glom Filt Rate - Afr Amer 62 mL/min (>60); Estimated Creatinine Clearance 36.35 ml/min; Globulin 3.7 g/dL (2.2-4.2); Glucose 173 mg/dL (74-106); Magnesium 2.1 mg/dL (1.6-2.6); Phosphorus 3.4 mg/dL (2.5-4.9); Potassium 3.8 mmol/L (3.5-5.1); Sodium Level 139 mmol/L (136-145); Thyroid Stim Hormone (TSH) 3.35 uIU/mL (0.358-3.74)
[2020-09-17 09:30] VITALS: O2SAT 95
--- NOTE | 2020-09-17 09:44 | EKG12_ITS ---
Test Reason : STROKE Blood Pressure : / mmHG Vent. Rate : 061 BPM Atrial Rate : 061 BPM P-R Int : 174 ms QRS Dur : 118 ms QT Int : 446 ms P-R-T Axes : 117 -09 160 degrees QTc Int : 448 ms Normal sinus rhythm Incomplete left bundle branch block ST & T wave abnormality, consider lateral ischemia Abnormal ECG Confirmed by NAHOMY STROUD, HENOK ([id number]), film or videotape editor KIESHA BARTH ([id number]) on 09/22/2020 12:46:53 PM Referred By: Tri Liu Confirmed By:RG COREA MD
--- NOTE | 2020-09-17 09:45 | NURSING ---
Dr. Liu aware of elevated troponin level. Dr. Casey from cardiac [facility] consuted and new order for EKG received. RT staff here now for test. Patient has completed 2 hours of therapy this AM and has denied any pain or chest pain and tolerated therapy well. Denies SOB. Able to verbalize some needs. Patient reported to therapist, i have to poop. Staff assisted per request. Very pleasant. Difficulty following commands, needs extra cues. Alert x 1 to self.
[2020-09-17 09:52] VITALS: BP 140/73; PULSE 62; RESP 16; O2SAT 97
--- NOTE | 2020-09-17 11:46 | PCM.CONS.C ---
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 Also with multiple white matter hyperintensities distributed throughout the deep white matter tracts of the bilateral cerebral hemispheres consistent with moderate chronic white matter ischemic changes. (3) Dementia Status: Chronic Comment: On Aricept Reason for Consult Date of Consultation: 09/17/20 Reason for Consultation: Elevated troponin History of Present Illness: The patient is a 80 year old M was admitted for CVA. On admission patient was found to have elevated troponin with no complaint of chest pain. He has severe left-sided weakness. In the rehab here patient went through pulmonary rehab with no chest pain. He could hardly stand up. He has had senile dementia and cannot communicate. Most of the history obtained through the chart and with the daughter. Apparently patient has been getting confused starting 3 years ago. At that time he was admitted for investigation of acute confusional state. For 1 year, patient has been getting more confused and short of breath on [id number] exertion. There has been no complaint of chest pain. This is the first CVA. Patient has been treated for hypertension, diabetes and hyperlipidemia. He is a non-smoker and nondrinker. EKG for the last 5 years have not changed even the one today. Recent echocardiogram showed hypokinesis in the territory of the left circumflex with overall ejection fraction being 55%.] Past Medical History Allergies/Adverse Reactions: Allergies No Known Allergies Allergy (Verified 12/10/17 15:49) Home Medications: Ambulatory Orders Medication Instructions Recorded Levothyroxine [Synthroid] 75 mcg PO DAILY 04/23/16 Lisinopril [Zestril] 5 mg PO DAILY 04/23/16 furosemide 20 mg tablet 20 mg PO DAILY 11/28/17 Donepezil HCl [Aricept] 5 mg PO QHS 09/14/20 Metoprolol Succinate [Toprol Xl] 25 mg PO DAILY 09/14/20 Acetaminophen [Tylenol Suppository] 650 mg RECTAL Q4H PRN PRN suppos. 09/16/20 Acetaminophen [Tylenol Tablet] 650 mg PO Q4H PRN PRN tab 09/16/20 Aspirin [Aspirin, Baby] 81 mg PO DAILY@0800 09/16/20 Atorvastatin Calcium [Lipitor] 40 mg PO QHS 09/16/20 Clopidogrel Bisulfate [Plavix] 75 mg PO DAILY 09/16/20 Tamsulosin HCl [Flomax] 0.4 mg PO DAILY@1730 09/16/20 Past Medical History (Chronic Problems): Chronic Problems (Last Reviewed 09/16/20 @ 18:[address] Tri Liu DO) Diabetes mellitus type 2, controlled (Chronic) Chronic renal failure, stage 3 (moderate) (Chronic) Stenosis of left vertebral artery (Chronic) Dementia (Chronic) On Aricept BPH (benign prostatic hyperplasia) (Chronic) Diabetic peripheral neuropathy associated with type 2 diabetes mellitus (Chronic) Pulmonary hypertension (Chronic) Right ventricular systolic pressure estimated at 40-45 on echocardiogram in August 2020 Hypertension (Chronic) Hypothyroidism (Chronic) Hyperlipemia (Chronic) Surgical History: - - Removal of the umbilicus Psychiatric History: No pertinent psych hx - *Family History Maternal Family History: Family History (Last Reviewed 09/16/20 @ 18:[address] Tri Liu DO) Father Diabetes Hypertension Kidney disease History Items: Unknown Paternal Family History: Family History (Last Reviewed 09/16/20 @ 18:[address] Tri Liu DO) Father Diabetes Hypertension Kidney disease History Items: Unknown Sibling Family History: Family History (Last Reviewed 09/16/20 @ 18:[address] Tri Liu DO) Father Diabetes Hypertension Kidney disease History Items: Unknown Lives: With Family - he lives with his dtr Chayito Smoking Status: Never smoker Tobacco Use: Non-smoker Alcohol: None Drugs: None Review of Systems - Review of Systems General: Reports: - - Unobtainable HEENT: Reports: - - Unobtainable Cardiovascular: Reports: - - Unobtainable Respiratory: Reports: - - Unobtainable Gastrointestinal: Reports: - - Unobtainable Neurological: Reports: History of CVA - Senile dementia, - Psychiatric: Reports: Depression Objective: Vital Signs Temp Pulse Resp BP Pulse Ox 97.8 F 62 16 140/73 H 97 09/17/20 08:00 09/17/20 09:52 09/17/20 09:52 09/17/20 09:52 09/17/20 09:52 Oxygen Delivery Method Room Air Weight: 176 lb 12.972 oz Body Mass Index (BMI) 29.4 Finger Stick Blood Glucose 154 Intake and Output for Last 24 Hours 09/15/20 09/16/20 09/17/20 23:59 23:59 23:59 Intake Total 760 / 760 400 / 400 Output Total 450 / 450 Balance 760 / 760 -50 / -50 General: Alert, Cooperative, - - Severe left-sided weakness HEENT: Atraumatic Neck: Supple Lungs: Clear to auscultation Cardiovascular: Normal S1, Normal S2, No Murmurs Vascular: No Carotid Bruits Abdomen: Bowel Sounds Present, Soft, Non Tender, No HSM, No Organomegaly Neurological: - - Aphasia, left-sided weakness 09/17/20 08:26: Sodium 139, Potassium 3.8, Chloride 105, Carbon Dioxide 26.0, Anion Gap 8, BUN 31 H, Creatinine 1.41 H, Est GFR (MDRD) Af Amer 62, Est GFR (MDRD) Non-Af 51 L, BUN/Creatinine Ratio 22.0 H, Glucose 173 H, Calcium 8.6, Phosphorus 3.4, Magnesium 2.1, Total Bilirubin 0.70, Troponin I 0.705 H* Rhythm: EKG: ECHO: Stress Test: Cardiac Cath: PCI: CT Surgery: Holter monitor: EPS: PPM: CXR: Chest CT Scan: Assessment/Plan #1 elevated troponin with no change in EKG for 5 years. Echocardiogram showed localized hypokinesis in the territory of the left circumflex. Overall ejection fraction is 55%. Patient denies any chest pain. Daughter wants only comfort care. At this point I would recommend medical therapy. Patient has been getting appropriate medical therapy. Hemodynamically patient is stable. I would only add statin at this point
[2020-09-17 12:05] LABS: Bedside Glucose 168 mg/dL (70-110)
[2020-09-17] MEDS: Insulin Lispro 100 UNIT/ML INSULN.PEN SC ×2 (12:17→16:44)
[2020-09-17] MEDS: Tamsulosin HCl 0.4 MG Capsule PO (16:44)
[2020-09-17] MEDS: 0.9% Saline Lock 10 ML Syringe IV ×2 (16:45→22:33)
[2020-09-17 17:36] LABS: Bedside Glucose 207 mg/dL (70-110)
[2020-09-17] MEDS: Acetaminophen 325 MG Tablet 650 MG PO (18:18)
[2020-09-17 19:05] VITALS: BP 139/90; PULSE 65; RESP 16; TEMP 36.4; O2SAT 96
[2020-09-17 20:56] LABS: Bedside Glucose 140 mg/dL (70-110)
[2020-09-17] MEDS: Donepezil HCl 5 MG Tablet PO (22:31)
[2020-09-17] MEDS: Atorvastatin Calcium 80 MG Tablet PO (22:32)
[2020-09-17] MEDS: Menthol/Lanolin/Calamine/Znox 113 GM Tube 1 APPLIC TOPICAL (22:32)
[2020-09-18 05:51] LABS: Bedside Glucose 140 mg/dL (70-110)
[2020-09-18] MEDS: Levothyroxine 75 MCG Tablet PO (06:04)
[2020-09-18] MEDS: Menthol/Lanolin/Calamine/Znox 113 GM Tube 1 APPLIC TOPICAL ×2 (06:05→21:37)
[2020-09-18] MEDS: Lisinopril 5 MG Tablet PO (07:50)
[2020-09-18] MEDS: Sertraline 50 MG Tablet 25 MG PO (07:50)
[2020-09-18 07:51] VITALS: PULSE 67
[2020-09-18] MEDS: Metoprolol(XL)Succ 25 MG Tablet PO (07:51)
[2020-09-18] MEDS: Aspirin 81 MG TAB.CHEW PO (07:51)
[2020-09-18] MEDS: Clopidogrel Bisulfate 75 MG Tablet PO (07:51)
[2020-09-18] MEDS: Furosemide 20 MG Tablet PO (07:52)
[2020-09-18 08:15] VITALS: BP 135/85; PULSE 62; RESP 18; TEMP 36.9; O2SAT 94
[2020-09-18 09:47] VITALS: O2SAT 94
[2020-09-18 12:30] LABS: Bedside Glucose 150 mg/dL (70-110)
[2020-09-18] MEDS: Insulin Lispro 100 UNIT/ML INSULN.PEN SC (12:52)
[2020-09-18] MEDS: Tamsulosin HCl 0.4 MG Capsule PO (16:44)
[2020-09-18] MEDS: Acetaminophen 325 MG Tablet 650 MG PO (16:44)
[2020-09-18 17:00] LABS: Bedside Glucose 108 mg/dL (70-110)
[2020-09-18] MEDS: 0.9% Saline Lock 10 ML Syringe IV (18:28)
[2020-09-18 19:24] VITALS: BP 152/85; PULSE 97; RESP 18; TEMP 36.8; O2SAT 96
[2020-09-18] MEDS: Donepezil HCl 5 MG Tablet PO (21:37)
[2020-09-18] MEDS: Atorvastatin Calcium 80 MG Tablet PO (21:37)
[2020-09-18] MEDS: Senna/Docusate Sodium 1 Tablet 2 TABLET PO (21:37)
[2020-09-18 22:05] LABS: Bedside Glucose 127 mg/dL (70-110)
[2020-09-19] MEDS: Menthol/Lanolin/Calamine/Znox 113 GM Tube 1 APPLIC TOPICAL ×2 (05:45→20:34)
[2020-09-19] MEDS: Levothyroxine 75 MCG Tablet PO (05:45)
[2020-09-19 07:10] LABS: Bedside Glucose 128 mg/dL (70-110)
[2020-09-19] MEDS: Furosemide 20 MG Tablet PO (07:36)
[2020-09-19] MEDS: Aspirin 81 MG TAB.CHEW PO (07:36)
[2020-09-19 07:37] VITALS: PULSE 95
[2020-09-19] MEDS: Clopidogrel Bisulfate 75 MG Tablet PO (07:37)
[2020-09-19] MEDS: Metoprolol(XL)Succ 25 MG Tablet PO (07:37)
[2020-09-19] MEDS: Sertraline 50 MG Tablet 25 MG PO (07:38)
[2020-09-19] MEDS: Lisinopril 5 MG Tablet PO (07:38)
[2020-09-19] MEDS: Acetaminophen 325 MG Tablet 650 MG PO (07:40)
--- NOTE | 2020-09-19 08:50 | PCM.PROGNOTE ---
Patient Problems: Active and Suspected Problems (Last Reviewed 09/16/20 @ 18:[address] 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 Also with multiple white matter hyperintensities distributed throughout the deep white matter tracts of the bilateral cerebral hemispheres consistent with moderate chronic white matter ischemic changes. Microscopic hematuria (Acute) With urate crystals present Encephalopathy acute (Acute) due to CVA in pt with underlying dementia Subjective: Mr. Bernabe was seen on team rounds today and his daughter Chayito participated by phone. Afebrile VSS-blood pressure has ranged from 135/85-150 2/85 since 09/17/2020 in the AM. Goal blood pressure is less than 130/70. Maintaining appropriate oxygen saturation on RA Oral intake is fair to good. Incontinent of urine at times. At other times he is able to use the urinal and and notifies the nurse when he has to go. He had 4 post void residuals done and the highest was 155. The rest were 0. Discussed with nursing - no problems that need addressed Reviewed the PT/OT/ST notes. He required moderate assistance with eating today and minimal assistance with grooming. Bathing, dressing, toileting, toilet transfer and tub/shower transfer are all total assistance. He completed oral care at set up. Not seen by PT yet today. reviewed the St note. I do not think he has Left side neglect because he feels me touch him and attempts to move the LUE and LLE when I ask him to move. He does have a visual field cut to the left lateral at least. His left eye did not move past the midline when looking left for me and he will not track when I move around the bed to the left without turning his head. Medication list reviewed. Blood sugar record was reviewed. Rare need for insulin and only 1 unit at a time. No hypoglycemia. Occasional blood sugar over 200. Cardiology consult was reviewed. No need for intervention. DTR wants comfort care/CCA. Continue the dual antiplatelet agents, beta-heather, high intensity statin and ALY inhibitor. - Physical Exam Vitals/I&O's: Vital Signs Temp Pulse Resp BP Pulse Ox 98.3 F 95 18 152/85 H 96 11/01/20 19:24 09/19/20 07:37 09/18/20 19:24 09/18/20 19:24 09/18/20 19:24 Oxygen Delivery Method Room Air Weight: 176 lb 12.972 oz Body Mass Index (BMI) 29.4 Finger Stick Blood Glucose 154 Intake and Output for Last 24 Hours 09/18/20 09/18/20 09/19/20 00:59 23:59 23:59 Intake Total 240 / 240 Output Total Balance 240 / 240 General: Alert, Cooperative, No apparent distress, Well developed, Well nourished, Confused Oral: Dry Mucosa Neck: Supple, No Nodes, Trachea Midline Lungs: Clear to auscultation Cardiovascular: Regular rate, Regular Rhythm, Normal S1, Normal S2, No Gallop Abdomen: Bowel Sounds Present, Soft, Non Tender, Non-Distended Extremities: No clubbing, No cyanosis, No edema Neurological: - - no sginificant change Psych/Mental Status: Appropriate Laboratory Results 09/18/20 12:26: POC Glucose 150 H 09/18/20 16:39: POC Glucose 108 09/18/20 21:34: POC Glucose 127 H 09/19/20 06:55: POC Glucose 128 H Current Medications Acetaminophen (Acetaminophen 325 Mg Tablet) 650 mg PO Q4H PRN PRN PRN Reason: Headache(1-10)/Temp>99.6F Last Admin: 09/19/20 07:40 Dose: 650 mg Documented by: Aspirin (Aspirin 81 Mg Tab.Chew) 81 mg PO DAILY@0800 [facility] Last Admin: 09/19/20 07:36 Dose: 81 mg Documented by: Atorvastatin Calcium (Atorvastatin Calcium 80 Mg Tablet) 80 mg PO QHS [facility] Last Admin: 09/18/20 21:37 Dose: 80 mg Documented by: Bisacodyl (Bisacodyl 10 Mg Suppository) 10 mg RECTAL .PRN X 1 PRN PRN Reason: Constipation Calamine/Phenol (Menthol/Lanolin/Calamine/Znox 113 Gm Tube) 1 applic TOPICAL BID@0600,2200 [facility]; Protocol Last Admin: 09/19/20 05:45 Dose: 7 applicatio Documented by: Clopidogrel Bisulfate (Clopidogrel Bisulfate 75 Mg Tablet) 75 mg PO DAILY [facility] Last Admin: 09/19/20 07:37 Dose: 75 mg Documented by: Donepezil HCl (Donepezil Hcl 5 Mg Tablet) 5 mg PO QHS [facility] Last Admin: 09/18/20 21:37 Dose: 5 mg Documented by: Furosemide (Furosemide 20 Mg Tablet) 20 mg PO DAILY [facility] Last Admin: 09/19/20 07:36 Dose: 20 mg Documented by: Haloperidol (Haloperidol 1 Mg Tablet) 0.5 mg PO Q6H PRN PRN PRN Reason: SEVERE AGITATION Insulin Human Lispro (Insulin Lispro 100 Unit/Ml Insuln.Pen) 0 unit SC ACHS [facility]; Protocol Last Admin: 09/19/20 06:56 Dose: Not Given Documented by: Levothyroxine Sodium (Levothyroxine 75 Mcg Tablet) 75 mcg PO DAILY@0600 [facility] Last Admin: 09/19/20 05:45 Dose: 75 mcg Documented by: Lisinopril (Lisinopril 5 Mg Tablet) 5 mg PO DAILY [facility] Last Admin: 09/19/20 07:38 Dose: 5 mg Documented by: Magnesium Hydroxide (Magnesium Hydroxide 30 Ml Udc) 30 ml PO .PRN X 1 PRN PRN Reason: Constipation Metoprolol Succinate (Metoprolol(Xl)Succ 25 Mg Tablet) 25 mg PO DAILY [facility] Last Admin: 09/19/20 07:37 Dose: 25 mg Documented by: Senna/Docusate Sodium (Senna/Docusate Sodium 1 Tablet) 2 tablet PO BID [facility] Last Admin: 09/19/20 07:37 Dose: Not Given Documented by: Sertraline HCl (Sertraline 50 Mg Tablet) 25 mg PO DAILY [facility] Last Admin: 09/19/20 07:38 Dose: 25 mg Documented by: Sodium Chloride (0.9% Saline Lock 10 Ml Syringe) 10 - 40 ml IV UD PRN PRN Reason: SALINE FLUSH Last Admin: 09/18/20 18:28 Dose: 10 ml Documented by: Tamsulosin HCl (Tamsulosin Hcl 0.4 Mg Capsule) 0.4 mg PO DAILY@1730 [facility] Last Admin: 09/18/20 16:44 Dose: 0.4 mg Documented by: Medical Necessity - Tobacco Use Smoking Status: Never smoker Tobacco Use: Non-smoker Assessment/Plan All Active Problems (Last Reviewed 09/16/20 @ 18:[address] Joann Sementi, DO) Left-sided weakness (Acute) Elevated troponin (Acute) CVA (cerebral vascular accident) (Acute) Microscopic hematuria (Acute) Encephalopathy acute (Acute) Impressions 1. 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 Now with visual field cut, dysarthria, L facial droop and he is flaccid in the left arm and leg. 2. acute encephalopathy on chronic dementia - stable at the present 3. HTN 4. Hyperlipidemia 5. Hypothyroidism -troponin was elevated to 4.35 in May 2020 and the patient cannot tell me if his levothyroxine was increased at that time. 6. History of heart failure with preserved ejection fraction 7. Wall motion abnormalities in the posterior and lateral wall of the heart on recent echocardiogram in a patient with previously uncontrolled diabetes mellitus type 2, untreated hyperlipidemia and hypertension. This indicates to me he most likely has coronary artery disease, especially since he has had lacunar infarcts in the past and has fairly diffuse white matter ischemic change in the brain. There is no history of a stress test in the prior medical record [facility] Seen by cardiology. No intervention at this time. Will continue medical management only. 8. Elevated troponin - Likely due to NSTEMI. 9. Chronic renal failure stage III a 10. mild pulmonary HTN with a RV systolic estimated at 40-45 Why? 11. BPH 12. hx of an abnormal EKG in the past 13. Diabetic peripheral polyneuropathy 14. Longstanding diabetes mellitus type 2-currently diet controlled with a hemoglobin A1c of 6.6 at presentation to the hospital 15. Left vertebral artery stenosis 16. Microscopic hematuria with normal PT and PTT 17. History of hallucinations in the past-on respite all at 1 time DC the [facility] and continue to monitor blood sugars. Given his DNR CC arrest status my goal for him is to keep his blood sugars under 200. His hemoglobin A1c at home was good despite being on no medication. BS's are likely mildly increased at this time due to CVA Continue therapy Will need to have a discussion with his dtr prior to DC about hospice referral for encephalopathy/ major stroke Inpatient E&M: 86233 Subs Hosp L2
[2020-09-19 09:19] VITALS: BP 119/84; PULSE 95; RESP 20; TEMP 36.8; O2SAT 95
[2020-09-19] MEDS: Tamsulosin HCl 0.4 MG Capsule PO (17:14)
[2020-09-19 17:41] LABS: Bedside Glucose 95 mg/dL (70-110)
[2020-09-19 19:30] VITALS: BP 152/76; PULSE 84; RESP 16; TEMP 37; O2SAT 98
[2020-09-19] MEDS: Donepezil HCl 5 MG Tablet PO (20:34)
[2020-09-19] MEDS: Atorvastatin Calcium 80 MG Tablet PO (20:34)
[2020-09-19 22:00] VITALS: PULSE 84; RESP 17
[2020-09-20] MEDS: Menthol/Lanolin/Calamine/Znox 113 GM Tube 1 APPLIC TOPICAL ×2 (06:49→20:47)
[2020-09-20] MEDS: Levothyroxine 75 MCG Tablet PO (06:49)
[2020-09-20 07:40] LABS: Bedside Glucose 120 mg/dL (70-110)
[2020-09-20 09:47] VITALS: BP 128/78; PULSE 80; RESP 17; TEMP 36.7; O2SAT 97
[2020-09-20 10:01] VITALS: PULSE 72
[2020-09-20] MEDS: Clopidogrel Bisulfate 75 MG Tablet PO (10:01)
[2020-09-20] MEDS: Furosemide 20 MG Tablet PO (10:01)
[2020-09-20] MEDS: Aspirin 81 MG TAB.CHEW PO (10:01)
[2020-09-20] MEDS: Metoprolol(XL)Succ 25 MG Tablet PO (10:01)
[2020-09-20] MEDS: Lisinopril 5 MG Tablet PO (10:02)
[2020-09-20] MEDS: Sertraline 50 MG Tablet 25 MG PO (10:02)
--- NOTE | 2020-09-20 11:09 | CASEMGMT ---
Social Work See attached for completed social work assessment. Patient daughter voicing an interest in looking into home health aides coming into the home to give me a break. Patient currently on Medicaid [employer]. This rn social services educating patient daughter on [facility] PASSPORT services. Patient daughter (Chayito) open to this rn social services making referral to PASSPORT services. Referral form for PASSPORT services completed and faxed to [facility]. Social work to continue to follow as needed. Dk Segovia MSW, POLLY
[2020-09-20] MEDS: Tamsulosin HCl 0.4 MG Capsule PO (17:19)
[2020-09-20 17:36] LABS: Bedside Glucose 119 mg/dL (70-110)
[2020-09-20 18:59] VITALS: BP 150/80; PULSE 88; RESP 17; TEMP 36.7; O2SAT 96
[2020-09-20] MEDS: Atorvastatin Calcium 80 MG Tablet PO (20:47)
[2020-09-20] MEDS: Donepezil HCl 5 MG Tablet PO (20:47)
[2020-09-20 21:45] VITALS: PULSE 92; RESP 16
--- NOTE | 2020-09-20 23:03 | NURSING ---
staff heard slapping noise coming from pt room. Upon arrival into room, pt had attends off and pt was slapping his butt repeatedly, yelling out for attention. Pt was asked if he needed to use the urinal and pt nodded earnestly. While nurse was holding urinal, pt tried to reach for staff's rear-end. Pt lured at nurse with tongue protruded and swirled tongue provocatively. The pt also began using inappropriate gestures in bed and staff told pt sternly to refrain from this behavior. Pt failed to void but was found incontinent shortly thereafter.
[2020-09-21] MEDS: Levothyroxine 75 MCG Tablet PO (05:11)
[2020-09-21] MEDS: Menthol/Lanolin/Calamine/Znox 113 GM Tube 1 APPLIC TOPICAL ×2 (05:12→22:12)
[2020-09-21 07:46] LABS: Bedside Glucose 115 mg/dL (70-110)
[2020-09-21 08:09] VITALS: BP 152/72; PULSE 58; RESP 16; TEMP 36.8; O2SAT 94
[2020-09-21 08:12] VITALS: BP 152/72; PULSE 64
[2020-09-21] MEDS: Lisinopril 5 MG Tablet PO (08:12)
[2020-09-21] MEDS: Furosemide 20 MG Tablet PO (08:12)
[2020-09-21] MEDS: Clopidogrel Bisulfate 75 MG Tablet PO (08:12)
[2020-09-21] MEDS: Aspirin 81 MG TAB.CHEW PO (08:12)
[2020-09-21] MEDS: Metoprolol(XL)Succ 25 MG Tablet PO (08:12)
[2020-09-21] MEDS: Sertraline 50 MG Tablet 25 MG PO (08:12)
--- NOTE | 2020-09-21 13:41 | PN_ITS ---
Patient Problems: Active and Suspected Problems (Last Reviewed 09/16/20 @ 18:[address] 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 Also with multiple white matter hyperintensities distributed throughout the deep white matter tracts of the bilateral cerebral hemispheres consistent with moderate chronic white matter ischemic changes. Microscopic hematuria (Acute) With urate crystals present Encephalopathy acute (Acute) due to CVA in pt with underlying dementia Subjective: Afebrile VSS Maintaining appropriate oxygen saturation on RA Oral intake is poor Discussed with nursing - no problems that need addressed Reviewed the PT/OT/ST notes Medication list reviewed. Nursing reports that the pt has been making lewd gestures and attempting to touch them inappropriately. He urinated on the floor last night and he took all his clothes off. He denies pain. Speech mostly yes and no answers and the words are slurred. Denies SOB, nausea,abd pain. - Physical Exam Vitals/I&O's: Vital Signs Temp Pulse Resp BP Pulse Ox 98.3 F 64 16 152/72 H 94 09/21/20 08:09 09/21/20 08:12 09/21/20 08:09 09/21/20 08:12 09/21/20 08:09 Oxygen Delivery Method Room Air Weight: 176 lb 12.972 oz Body Mass Index (BMI) 29.4 Finger Stick Blood Glucose 154 Intake and Output for Last 24 Hours 09/19/20 09/20/20 09/21/20 23:59 23:59 23:59 Intake Total 1080 / 1200 1280 / 1280 300 / 300 Output Total 850 / 850 500 / 500 Balance 230 / 350 780 / 780 300 / 300 General: No apparent distress, - - drowsy Oral: Dry Mucosa Neck: Supple, No JVD Lungs: Clear to auscultation, Diminished Cardiovascular: Regular rate, Regular Rhythm, No rub noted, No Gallop Abdomen: Soft, Non Tender, Non-Distended Extremities: No edema, No Calf Tenderness Skin: No rashes, No breakdown Neurological: Facial Droop, Slurred Speech, - - he is walking with the wall rail but the PT is moving the R foot forward and supporting himstyill with visual field cut Psych/Mental Status: Flat Affect, Impulsive Laboratory Results 09/20/20 17:19: POC Glucose 119 H 09/21/20 07:43: POC Glucose 115 H Current Medications Acetaminophen (Acetaminophen 325 Mg Tablet) 650 mg PO Q4H PRN PRN PRN Reason: Headache(1-10)/Temp>99.6F Last Admin: 09/19/20 07:40 Dose: 650 mg Documented by: Aspirin (Aspirin 81 Mg Tab.Chew) 81 mg PO DAILY@0800 [facility] Last Admin: 09/21/20 08:12 Dose: 81 mg Documented by: Atorvastatin Calcium (Atorvastatin Calcium 80 Mg Tablet) 80 mg PO QHS [facility] Last Admin: 09/20/20 20:47 Dose: 80 mg Documented by: Bisacodyl (Bisacodyl 10 Mg Suppository) 10 mg RECTAL .PRN X 1 PRN PRN Reason: Constipation Calamine/Phenol (Menthol/Lanolin/Calamine/Znox 113 Gm Tube) 1 applic TOPICAL BID@0600,2200 [facility]; Protocol Last Admin: 09/21/20 05:12 Dose: 1 applicatio Documented by: Clopidogrel Bisulfate (Clopidogrel Bisulfate 75 Mg Tablet) 75 mg PO DAILY [facility] Last Admin: 09/21/20 08:12 Dose: 75 mg Documented by: Donepezil HCl (Donepezil Hcl 5 Mg Tablet) 5 mg PO QHS [facility] Last Admin: 09/20/20 20:47 Dose: 5 mg Documented by: Furosemide (Furosemide 20 Mg Tablet) 20 mg PO DAILY [facility] Last Admin: 09/21/20 08:12 Dose: 20 mg Documented by: Haloperidol (Haloperidol 1 Mg Tablet) 0.5 mg PO Q6H PRN PRN PRN Reason: SEVERE AGITATION Levothyroxine Sodium (Levothyroxine 75 Mcg Tablet) 75 mcg PO DAILY@0600 [facility] Last Admin: 09/21/20 05:11 Dose: 75 mcg Documented by: Lisinopril (Lisinopril 5 Mg Tablet) 5 mg PO DAILY [facility] Last Admin: 09/21/20 08:12 Dose: 5 mg Documented by: Magnesium Hydroxide (Magnesium Hydroxide 30 Ml Udc) 30 ml PO .PRN X 1 PRN PRN Reason: Constipation Metoprolol Succinate (Metoprolol(Xl)Succ 25 Mg Tablet) 25 mg PO DAILY [facility] Last Admin: 09/21/20 08:12 Dose: 25 mg Documented by: Senna/Docusate Sodium (Senna/Docusate Sodium 1 Tablet) 2 tablet PO BID [facility] Last Admin: 09/21/20 08:14 Dose: Not Given Documented by: Sertraline HCl (Sertraline 50 Mg Tablet) 25 mg PO DAILY [facility] Last Admin: 09/21/20 08:12 Dose: 25 mg Documented by: Sodium Chloride (0.9% Saline Lock 10 Ml Syringe) 10 - 40 ml IV UD PRN PRN Reason: SALINE FLUSH Last Admin: 09/18/20 18:28 Dose: 10 ml Documented by: Tamsulosin HCl (Tamsulosin Hcl 0.4 Mg Capsule) 0.4 mg PO DAILY@1730 [facility] Last Admin: 09/20/20 17:19 Dose: 0.4 mg Documented by: Medical Necessity - Tobacco Use Smoking Status: Never smoker Tobacco Use: Non-smoker Assessment/Plan All Active Problems (Last Reviewed 09/16/20 @ 18:[address] Tri Liu, DO) Left-sided weakness (Acute) Elevated troponin (Acute) CVA (cerebral vascular accident) (Acute) Microscopic hematuria (Acute) Encephalopathy acute (Acute) Impressions 1. 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 Now with visual field cut, dysarthria, L facial droop and he is flaccid in the left arm and leg. 2. acute encephalopathy on chronic dementia - stable at the present 3. HTN 4. Hyperlipidemia 5. Hypothyroidism -troponin was elevated to 4.35 in May 2020 and the patient cannot tell me if his levothyroxine was increased at that time. 6. History of heart failure with preserved ejection fraction 7. Wall motion abnormalities in the posterior and lateral wall of the heart on recent echocardiogram in a patient with previously uncontrolled diabetes mellitus type 2, untreated hyperlipidemia and hypertension. This indicates to me he most likely has coronary artery disease, especially since he has had lacunar infarcts in the past and has fairly diffuse white matter ischemic change in the brain. There is no history of a stress test in the prior medical record it was at their [facility]. Seen by cardiology. No intervention at this time. Will continue medical management only. 8. Elevated troponin - Likely due to NSTEMI. 9. Chronic renal failure stage III a 10. mild pulmonary HTN with a RV systolic estimated at 40-45 Why? 11. BPH 12. hx of an abnormal EKG in the past 13. Diabetic peripheral polyneuropathy 14. Longstanding diabetes mellitus type 2-currently diet controlled with a hemoglobin A1c of 6.6 at presentation to the hospital 15. Left vertebral artery stenosis 16. Microscopic hematuria with normal PT and PTT 17. History of hallucinations in the past-on respite all at 1 time Add Seroquel 12.5 mg BID - he did not have QT prolongation on the EKG. Will repeat another EKG in a day or two. Continue therapy Inpatient E&M: 90305 Subs Hosp L2
[2020-09-21 17:35] LABS: Bedside Glucose 88 mg/dL (70-110)
[2020-09-21] MEDS: Tamsulosin HCl 0.4 MG Capsule PO (17:37)
[2020-09-21 22:00] VITALS: BP 129/89; PULSE 58; RESP 14; TEMP 36.9; O2SAT 95
[2020-09-21] MEDS: Atorvastatin Calcium 80 MG Tablet PO (22:12)
[2020-09-21] MEDS: QUEtiapine 25 MG Tablet 12.5 MG PO (22:12)
[2020-09-21] MEDS: Donepezil HCl 5 MG Tablet PO (22:12)
[2020-09-22] MEDS: Levothyroxine 75 MCG Tablet PO (05:05)
[2020-09-22] MEDS: Menthol/Lanolin/Calamine/Znox 113 GM Tube 1 APPLIC TOPICAL ×2 (05:24→21:30)
[2020-09-22] MEDS: Clopidogrel Bisulfate 75 MG Tablet PO (08:00)
[2020-09-22] MEDS: Furosemide 20 MG Tablet PO (08:00)
[2020-09-22] MEDS: Aspirin 81 MG TAB.CHEW PO (08:00)
[2020-09-22] MEDS: QUEtiapine 25 MG Tablet 12.5 MG PO ×2 (08:01→21:29)
[2020-09-22] MEDS: Lisinopril 5 MG Tablet PO (08:03)
[2020-09-22] MEDS: Sertraline 50 MG Tablet 25 MG PO (08:03)
[2020-09-22 08:05] VITALS: PULSE 62
[2020-09-22] MEDS: Metoprolol(XL)Succ 25 MG Tablet PO (08:05)
[2020-09-22 08:59] VITALS: BP 124/75; PULSE 47; RESP 16; TEMP 36.3; O2SAT 97
--- NOTE | 2020-09-22 09:59 | CASEMGMT ---
Social Work IDT met with patient and dtr via conference call for Team meeting. Pt asleep during meeting. Discussed patient's progress in therapy. Pt is max x2 for SPT, walking on wall rail max x1 wtih w/c follow, practicing sequencing at 20ft. Using Saralift for standing and nursing for tx. Pt is seated set up for grooming and eating, totalA for all ADLs. Left arm ROM, high tone, resistance to ROM. ST working on dysarthria, low voice strategies, oriented to name, month/date of birthday, able to follow one and two step commands, using rehabilitation team lead and repetition of directions, poor comprehension, and on nectar thick liquids, regular textures. Pt denies pain, low appetite. Pt started on Seroquel for agitation, restlessness and to sleep better. Pt having poor fluid intake. spoke with dtr about hospice at [place] for additional assistance, dtr agreed. Referral made to [facility]. Explained Medicare benefit with 23 approved days with DC 10/09. The goal is for pt to return home at [place]. Will Reteam next week. Will continue to follow. NICOLETTE MarquezW
--- NOTE | 2020-09-22 11:06 | PCM.PROGNOTE ---
Patient Problems: Active and Suspected Problems (Last Reviewed 09/16/20 @ 18:[address] 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 Also with multiple white matter hyperintensities distributed throughout the deep white matter tracts of the bilateral cerebral hemispheres consistent with moderate chronic white matter ischemic changes. Microscopic hematuria (Acute) With urate crystals present Encephalopathy acute (Acute) due to CVA in pt with underlying dementia Subjective: Mr. Bernabe was seen on team rounds today and his daughter Chayito participated by phone. Afebrile VSS Maintaining appropriate oxygen saturation on RA Oral intake is fair Discussed with nursing - no problems that need addressed. He slept better last night with the Seroquel however he is very drowsy today and slept through rounds Reviewed the PT/OT/ST notes Medication list reviewed. - Physical Exam Vitals/I&O's: Vital Signs Temp Pulse Resp BP Pulse Ox 97.4 F L 47 L 16 124/75 H 97 09/22/20 08:59 09/22/20 08:59 09/22/20 08:59 09/22/20 08:59 09/22/20 08:59 Oxygen Delivery Method Room Air Weight: 176 lb 12.972 oz Body Mass Index (BMI) 29.4 Finger Stick Blood Glucose 154 Intake and Output for Last 24 Hours 09/20/20 09/21/20 09/22/20 23:59 23:59 23:59 Intake Total 1280 / 1280 780 / 780 240 / 240 Output Total 500 / 500 250 / 250 0 / 0 Balance 780 / 780 530 / 530 240 / 240 General: Lethargic, - - He is having apneic episodes with sleep. Overnight trending pulse ox showed hypoxemia and bradycardia while sleeping Neck: Supple, No JVD Lungs: Diminished Cardiovascular: Normal S1, Normal S2, Bradycardic, No rub noted, No Gallop Abdomen: Bowel Sounds Present, Soft, Non-Distended, - - No guarding with palpation Extremities: No edema Skin: No rashes, No breakdown Neurological: Facial Droop, Slurred Speech, Unsteady Gait, - - very weak on the right Psych/Mental Status: Flat Affect Laboratory Results 09/21/20 17:28: POC Glucose 88 Current Medications Acetaminophen (Acetaminophen 325 Mg Tablet) 650 mg PO Q4H PRN PRN PRN Reason: Headache(1-10)/Temp>99.6F Last Admin: 09/19/20 07:40 Dose: 650 mg Documented by: Aspirin (Aspirin 81 Mg Tab.Chew) 81 mg PO DAILY@0800 [facility] Last Admin: 09/22/20 08:00 Dose: 81 mg Documented by: Atorvastatin Calcium (Atorvastatin Calcium 80 Mg Tablet) 80 mg PO QHS [facility] Last Admin: 09/21/20 22:12 Dose: 80 mg Documented by: Bisacodyl (Bisacodyl 10 Mg Suppository) 10 mg RECTAL .PRN X 1 PRN PRN Reason: Constipation Calamine/Phenol (Menthol/Lanolin/Calamine/Znox 113 Gm Tube) 1 applic TOPICAL BID@0600,2200 [facility]; Protocol Last Admin: 09/22/20 05:24 Dose: 1 applicatio Documented by: Clopidogrel Bisulfate (Clopidogrel Bisulfate 75 Mg Tablet) 75 mg PO DAILY [facility] Last Admin: 09/22/20 08:00 Dose: 75 mg Documented by: Donepezil HCl (Donepezil Hcl 5 Mg Tablet) 5 mg PO QHS [facility] Last Admin: 09/21/20 22:12 Dose: 5 mg Documented by: Furosemide (Furosemide 20 Mg Tablet) 20 mg PO DAILY [facility] Last Admin: 09/22/20 08:00 Dose: 20 mg Documented by: Haloperidol (Haloperidol 1 Mg Tablet) 0.5 mg PO Q6H PRN PRN PRN Reason: SEVERE AGITATION Insulin Human Lispro (Insulin Lispro 100 Unit/Ml Insuln.Pen) 0 unit SC TIDAC [facility]; Protocol Levothyroxine Sodium (Levothyroxine 75 Mcg Tablet) 75 mcg PO DAILY@0600 [facility] Last Admin: 09/22/20 05:05 Dose: 75 mcg Documented by: Lisinopril (Lisinopril 5 Mg Tablet) 5 mg PO DAILY [facility] Last Admin: 09/22/20 08:03 Dose: 5 mg Documented by: Magnesium Hydroxide (Magnesium Hydroxide 30 Ml Udc) 30 ml PO .PRN X 1 PRN PRN Reason: Constipation Metoprolol Succinate (Metoprolol(Xl)Succ 25 Mg Tablet) 25 mg PO DAILY [facility] Last Admin: 09/22/20 08:05 Dose: 25 mg Documented by: Quetiapine Fumarate (Quetiapine 25 Mg Tablet) 12.5 mg PO HS [facility] Senna/Docusate Sodium (Senna/Docusate Sodium 1 Tablet) 2 tablet PO BID [facility] Last Admin: 09/22/20 08:01 Dose: Not Given Documented by: Sertraline HCl (Sertraline 50 Mg Tablet) 25 mg PO DAILY [facility] Last Admin: 09/22/20 08:03 Dose: 25 mg Documented by: Sodium Chloride (0.9% Saline Lock 10 Ml Syringe) 10 - 40 ml IV UD PRN PRN Reason: SALINE FLUSH Last Admin: 09/18/20 18:28 Dose: 10 ml Documented by: Tamsulosin HCl (Tamsulosin Hcl 0.4 Mg Capsule) 0.4 mg PO DAILY@1730 [facility] Last Admin: 09/21/20 17:37 Dose: 0.4 mg Documented by: Medical Necessity - Tobacco Use Smoking Status: Never smoker Tobacco Use: Non-smoker Assessment/Plan All Active Problems (Last Reviewed 09/16/20 @ 18:[address] Tri Liu, DO) Left-sided weakness (Acute) Elevated troponin (Acute) CVA (cerebral vascular accident) (Acute) Microscopic hematuria (Acute) Encephalopathy acute (Acute) Impressions 1. 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 Now with visual field cut, dysarthria, L facial droop and he is flaccid in the left arm and leg. 2. acute encephalopathy on chronic dementia - stable at the present 3. HTN 4. Hyperlipidemia 5. Hypothyroidism -troponin was elevated to 4.35 in May 2020 and the patient cannot tell me if his levothyroxine was increased at that time. 6. History of heart failure with preserved ejection fraction 7. Wall motion abnormalities in the posterior and lateral wall of the heart on recent echocardiogram in a patient with previously uncontrolled diabetes mellitus type 2, untreated hyperlipidemia and hypertension. This indicates to me he most likely has coronary artery disease, especially since he has had lacunar infarcts in the past and has fairly diffuse white matter ischemic change in the brain. There is no history of a stress test in the prior medical record [facility] Seen by cardiology. No intervention at this time. Will continue medical management only. 8. Elevated troponin - Likely due to NSTEMI. 9. Chronic renal failure stage III a 10. mild pulmonary HTN with a RV systolic estimated at 40-45 Why? 11. BPH 12. hx of an abnormal EKG in the past 13. Diabetic peripheral polyneuropathy 14. Longstanding diabetes mellitus type 2-currently diet controlled with a hemoglobin A1c of 6.6 at presentation to the hospital 15. Left vertebral artery stenosis 16. Microscopic hematuria with normal PT and PTT 17. History of hallucinations in the past-on Risperdal at 1 time. 18. sleep disordered breathing 19. bradycardia Decrease the Seroquel to once daily at bedtime Nursing is encouraging him to drink but he is not eating and drinking very much Discussed hospice referral with Dtr and she would like to talk with hospice. She reiterated that she would like comfort for him continue therapy O2 at 2LPM anytime he is sleeping Consider DC of beta heather if the pulse drops any lower Inpatient E&M: 42225 Subs Hosp L2
[2020-09-22 11:25] LABS: Bedside Glucose 113 mg/dL (70-110)
[2020-09-22 11:41] LABS: Bedside Glucose 98 mg/dL (70-110)
[2020-09-22 16:50] LABS: Bedside Glucose 104 mg/dL (70-110)
[2020-09-22] MEDS: Tamsulosin HCl 0.4 MG Capsule PO (17:30)
[2020-09-22 19:44] VITALS: BP 163/85; PULSE 61; RESP 16; TEMP 36.4; O2SAT 98
[2020-09-22] MEDS: Atorvastatin Calcium 80 MG Tablet PO (21:29)
[2020-09-22] MEDS: Donepezil HCl 5 MG Tablet PO (21:29)
[2020-09-22] MEDS: Senna/Docusate Sodium 1 Tablet 2 TABLET PO (21:29)
[2020-09-23] MEDS: Menthol/Lanolin/Calamine/Znox 113 GM Tube 1 APPLIC TOPICAL ×2 (05:04→23:14)
[2020-09-23] MEDS: Levothyroxine 75 MCG Tablet PO (05:05)
[2020-09-23 05:46] LABS: Hematocrit 46.7 % (40-54); Hemoglobin 14.4 g/dL (13.0-16.5); Mean Corp Hgb Conc 30.8 g/dL (32-36); Mean Corpuscular Hgb 27.4 pg (27.0-32.0); Mean Platelet Vol. 10.6 fl (6.2-12.0); Platelet Count 243 K/mm3 (150-450); RBC Distribution Width CV 13.1 % (11.6-14.6); RBC Distribution Width SD 42.7 fl (35.1-43.9); Red Blood Count 5.25 M/mm3 (4.6-6.2); White Blood Count 7.3 K/mm3 (4.4-11.0)
[2020-09-23 06:04] LABS: Anion Gap 6 (5-15); BUN 43 mg/dL (7-18); BUN/Creat Ratio 25.1 RATIO (10-20); Calcium,Total 8.4 mg/dL (8.5-10.1); Chloride 107 mmol/L (98-107); Creatinine, Serum 1.71 mg/dL (0.70-1.30); EST Glomerular Filtration Rate 41 mL/min (>60); Est Glom Filt Rate - Afr Amer 50 mL/min (>60); Estimated Creatinine Clearance 29.97 ml/min; Glucose 110 mg/dL (74-106); Magnesium 2.4 mg/dL (1.6-2.6); Potassium 3.7 mmol/L (3.5-5.1); Sodium Level 142 mmol/L (136-145)
[2020-09-23 06:46] VITALS: O2SAT 93
[2020-09-23 06:55] LABS: Bedside Glucose 114 mg/dL (70-110)
[2020-09-23] MEDS: Sertraline 50 MG Tablet 25 MG PO (08:53)
[2020-09-23] MEDS: Aspirin 81 MG TAB.CHEW PO (08:53)
[2020-09-23] MEDS: Clopidogrel Bisulfate 75 MG Tablet PO (08:53)
[2020-09-23 08:54] VITALS: PULSE 53
[2020-09-23] MEDS: Metoprolol(XL)Succ 25 MG Tablet PO (08:54)
[2020-09-23] MEDS: Lisinopril 5 MG Tablet PO (08:54)
[2020-09-23 10:00] VITALS: BP 119/63; PULSE 60; RESP 16; TEMP 36.6; O2SAT 96
--- NOTE | 2020-09-23 10:34 | PN_ITS ---
Patient Problems: Active and Suspected Problems (Last Reviewed 09/16/20 @ 18:[address] 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 Also with multiple white matter hyperintensities distributed throughout the deep white matter tracts of the bilateral cerebral hemispheres consistent with moderate chronic white matter ischemic changes. Microscopic hematuria (Acute) With urate crystals present Encephalopathy acute (Acute) due to CVA in pt with underlying dementia Subjective: Afebrile Blood pressures are erratic and since Saturday have ranged from 124/75-163/85. The heart rate has ranged from 47bpm to 64 bpm over the past 48 hours. Prior to that the heart rate was in the 59-97 range. Oral intake is fair He is maintaining appropriate oxygen saturation on room air while awake. His overnight trending pulse ox revealed hypoxemia while sleeping and he is observed to have apneic episodes. He is currently on 2 L of oxygen anytime he is sleeping and will need oxygen at home. He is sleeping better with the addition of Seroquel 12.5 mg nightly to his drug regimen. No more behavior problems PT/OT/ST notes were reviewed. All lab was personally reviewed. CBC is within normal limits. The BMP shows a potassium of 3.7, sodium of 142, BUN of 43 and a creatinine of 1.71. The BUN and creatinine on 09/17/2020 were 31 and 1.41 respectively. Fasting blood sugar today is 110. Blood sugars are well controlled with no hypoglycemia. No medication other than SSI. Not eating well. I sat with him while he was eating and he ate maybe 25% of his lunch with much encouragement. He is able to feed himself - Physical Exam Vitals/I&O's: Vital Signs Temp Pulse Resp BP Pulse Ox 97.6 F L 53 L 16 163/85 H 93 09/22/20 19:44 09/23/20 08:54 09/22/20 19:44 09/22/20 19:44 09/23/20 06:46 Oxygen Flow Rate (L/min) 2 Oxygen Delivery Method Nasal Cannula Weight: 176 lb 12.972 oz Body Mass Index (BMI) 29.4 Finger Stick Blood Glucose 154 Intake and Output for Last 24 Hours 09/21/20 09/22/20 09/23/20 23:59 23:59 23:59 Intake Total 780 / 780 720 / 720 100 / 100 Output Total 250 / 250 150 / 150 Balance 530 / 530 570 / 570 100 / 100 General: Alert, Cooperative, No apparent distress Oral: Dry Mucosa Neck: No JVD Lungs: Diminished - poor inspiratory effort Cardiovascular: Regular Rhythm, Normal S1, Normal S2, No Ectopic Activity, Bradycardic, No Gallop Abdomen: Soft, - - No guarding with palpation Extremities: No edema Skin: No rashes, No breakdown Neurological: Facial Droop, Slurred Speech, Unsteady Gait, - - he is progressing with therapy but, still requiring a lot of assistance and still ambulating using the wall rail with WC follow Psych/Mental Status: Flat Affect Laboratory Results 09/22/20 06:21: POC Glucose 113 H 09/22/20 11:36: POC Glucose 98 09/22/20 16:36: POC Glucose 104 09/23/20 05:15: WBC 7.3, RBC 5.25, Hgb 14.4, Hct 46.7, MCV 89.0, MCH 27.4, MCHC 30.8 L, RDW Std Deviation 42.7, RDW Coeff of Lupillo 13.1, Plt Count 243, MPV 10.6 09/23/20 05:15: Sodium 142, Potassium 3.7, Chloride 107, Carbon Dioxide 29.0, Anion Gap 6, BUN 43 H, Creatinine 1.71 H, Estim Creat Clear Calc 29.97, Est GFR (MDRD) Af Amer 50 L, Est GFR (MDRD) Non-Af 41 L, BUN/Creatinine Ratio 25.1 H, Glucose 110 H, Calcium 8.4 L, Magnesium 2.4 09/23/20 06:43: POC Glucose 114 H Current Medications Acetaminophen (Acetaminophen 325 Mg Tablet) 650 mg PO Q4H PRN PRN PRN Reason: Headache(1-10)/Temp>99.6F Last Admin: 09/19/20 07:40 Dose: 650 mg Documented by: Aspirin (Aspirin 81 Mg Tab.Chew) 81 mg PO DAILY@0800 [facility] Last Admin: 09/23/20 08:53 Dose: 81 mg Documented by: Atorvastatin Calcium (Atorvastatin Calcium 80 Mg Tablet) 80 mg PO QHS COUNTS INCLUDE 234 BEDS AT [facility] Last Admin: 09/22/20 21:29 Dose: 80 mg Documented by: Bisacodyl (Bisacodyl 10 Mg Suppository) 10 mg RECTAL .PRN X 1 PRN PRN Reason: Constipation Calamine/Phenol (Menthol/Lanolin/Calamine/Znox 113 Gm Tube) 1 applic TOPICAL BID@0600,2200 COUNTS [facility]CLUDE 234 BEDS AT [facility]; Protocol Last Admin: 09/23/20 05:04 Dose: 1 applicatio Documented by: Clopidogrel Bisulfate (Clopidogrel Bisulfate 75 Mg Tablet) 75 mg PO DAILY COUNTS INCLUDE 234 BEDS AT [facility] Last Admin: 09/23/20 08:53 Dose: 75 mg Documented by: Donepezil HCl (Donepezil Hcl 5 Mg Tablet) 5 mg PO QHS COUNTS INCLUDE 234 BEDS AT THE [facility] Last Admin: 09/22/20 21:29 Dose: 5 mg Documented by: Furosemide (Furosemide 20 Mg Tablet) 20 mg PO DAILY COUNTS INCLUDE 234 BEDS AT [facility] Last Admin: 09/22/20 08:00 Dose: 20 mg Documented by: Haloperidol (Haloperidol 1 Mg Tablet) 0.5 mg PO Q6H PRN PRN PRN Reason: SEVERE AGITATION Insulin Human Lispro (Insulin Lispro 100 Unit/Ml Insuln.Pen) 0 unit SC TIDAC COUNTS INCLUDE 234 BEDS AT THE [facility]; Protocol Last Admin: 09/23/20 08:07 Dose: Not Given Documented by: Levothyroxine Sodium (Levothyroxine 75 Mcg Tablet) 75 mcg PO DAILY@0600 COUNTS INCLUDE 234 BEDS AT THE [facility] Last Admin: 09/23/20 05:05 Dose: 75 mcg Documented by: Lisinopril (Lisinopril 5 Mg Tablet) 5 mg PO DAILY COUNTS INCLUDE 234 BEDS AT THE [facility] Last Admin: 09/23/20 08:54 Dose: 5 mg Documented by: Magnesium Hydroxide (Magnesium Hydroxide 30 Ml Udc) 30 ml PO .PRN X 1 PRN PRN Reason: Constipation Metoprolol Succinate (Metoprolol(Xl)Succ 25 Mg Tablet) 25 mg PO DAILY COUNTS INCLUDE 234 BEDS AT THE [facility] Last Admin: 09/23/20 08:54 Dose: 25 mg Documented by: Quetiapine Fumarate (Quetiapine 25 Mg Tablet) 12.5 mg PO [facility] Last Admin: 09/22/20 21:29 Dose: 12.5 mg Documented by: Senna/Docusate Sodium (Senna/Docusate Sodium 1 Tablet) 2 tablet PO BID COUNTS INCLUDE 234 BEDS AT THE [facility] Last Admin: 09/23/20 08:59 Dose: Not Given Documented by: Sertraline HCl (Sertraline 50 Mg Tablet) 25 mg PO DAILY COUNTS INCLUDE 234 BEDS AT [facility] Last Admin: 09/23/20 08:53 Dose: 25 mg Documented by: Sodium Chloride (0.9% Saline Lock 10 Ml Syringe) 10 - 40 ml IV UD PRN PRN Reason: SALINE FLUSH Last Admin: 09/18/20 18:28 Dose: 10 ml Documented by: Tamsulosin HCl (Tamsulosin Hcl 0.4 Mg Capsule) 0.4 mg PO DAILY@1730 COUNTS INCLUDE 234 BEDS AT [facility] Last Admin: 09/22/20 17:30 Dose: 0.4 mg Documented by: Medical Necessity - Tobacco Use Smoking Status: Never smoker Tobacco Use: Non-smoker Assessment/Plan All Active Problems (Last Reviewed 09/16/20 @ 18:[address] Tri Liu, DO) Left-sided weakness (Acute) Elevated troponin (Acute) CVA (cerebral vascular accident) (Acute) Microscopic hematuria (Acute) Encephalopathy acute (Acute) Impressions 1. 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 Now with visual field cut, dysarthria, L facial droop and he is flaccid in the left arm and leg. 2. acute encephalopathy on chronic dementia - stable at the present 3. HTN 4. Hyperlipidemia 5. Hypothyroidism -troponin was elevated to 4.35 in May 2020 and the patient cannot tell me if his levothyroxine was increased at that time. 6. History of heart failure with preserved ejection fraction 7. Wall motion abnormalities in the posterior and lateral wall of the heart on recent echocardiogram in a patient with previously uncontrolled diabetes mellitus type 2, untreated hyperlipidemia and hypertension. This indicates to me he most likely has coronary artery disease, especially since he has had lacunar infarcts in the past and has fairly diffuse white matter ischemic change in the brain. There is no history of a stress test in the prior medical record [facility] Seen by cardiology. No intervention at this time. Will continue medical management only. 8. Elevated troponin - Likely due to NSTEMI. 9. Chronic renal failure stage III a 10. mild pulmonary HTN with a RV systolic estimated at 40-45 Why? 11. BPH 12. hx of an abnormal EKG in the past 13. Diabetic peripheral polyneuropathy 14. Longstanding diabetes mellitus type 2-currently diet controlled with a hemoglobin A1c of 6.6 at presentation to the hospital 15. Left vertebral artery stenosis 16. Microscopic hematuria with normal PT and PTT 17. History of hallucinations in the past-on Risperdal at 1 time. 18. sleep disordered breathing 19. bradycardia Decrease the Seroquel to once daily at bedtime Nursing is encouraging him to drink but he is not eating and drinking very much Discussed hospice referral with Dtr and she would like to talk with hospice. She reiterated that she would like comfort for him continue therapy O2 at 2LPM anytime he is sleeping Consider DC of beta heather if the pulse drops any lower Inpatient E&M: 23526 Subs Hosp L2
[2020-09-23 12:16] LABS: Bedside Glucose 97 mg/dL (70-110)
[2020-09-23] MEDS: Tamsulosin HCl 0.4 MG Capsule PO (18:02)
[2020-09-23 18:11] LABS: Bedside Glucose 133 mg/dL (70-110)
[2020-09-23 19:38] VITALS: BP 144/79; PULSE 51; RESP 16; TEMP 36.6; O2SAT 95
[2020-09-23 21:26] LABS: Bedside Glucose 157 mg/dL (70-110)
[2020-09-23] MEDS: Atorvastatin Calcium 80 MG Tablet PO (23:13)
[2020-09-23] MEDS: QUEtiapine 25 MG Tablet 12.5 MG PO (23:13)
[2020-09-23] MEDS: Donepezil HCl 5 MG Tablet PO (23:14)
[2020-09-24] MEDS: Levothyroxine 75 MCG Tablet PO (07:02)
[2020-09-24] MEDS: Menthol/Lanolin/Calamine/Znox 113 GM Tube 1 APPLIC TOPICAL ×2 (07:02→22:00)
[2020-09-24 07:06] LABS: Bedside Glucose 119 mg/dL (70-110)
[2020-09-24 08:35] VITALS: BP 113/71; PULSE 44; RESP 16; TEMP 36.8; O2SAT 98
[2020-09-24 10:42] VITALS: BP 126/70; PULSE 45
--- NOTE | 2020-09-24 11:14 | NURSING ---
Patient is drowsy at this time. waiting to give 8 and 10 am meds for patient's safety. will awaken to voice, alert to self. denies pain. just seems very drowsy. will monitor.
[2020-09-24 11:31] LABS: Bedside Glucose 129 mg/dL (70-110)
[2020-09-24 11:37] VITALS: O2SAT 98
[2020-09-24] MEDS: Dext 5%-0.45% NS 1,000 ML 75 ML IV (12:55)
[2020-09-24] MEDS: Lisinopril 5 MG Tablet PO (12:56)
[2020-09-24] MEDS: Sertraline 50 MG Tablet 25 MG PO (12:56)
[2020-09-24] MEDS: Clopidogrel Bisulfate 75 MG Tablet PO (12:56)
[2020-09-24] MEDS: Aspirin 81 MG TAB.CHEW PO (12:56)
--- NOTE | 2020-09-24 15:02 | NURSING ---
Update given to patient's daughter.
[2020-09-24 16:40] LABS: Bedside Glucose 120 mg/dL (70-110)
[2020-09-24] MEDS: Tamsulosin HCl 0.4 MG Capsule PO (18:03)
[2020-09-24 19:20] VITALS: BP 152/83; PULSE 56; RESP 18; TEMP 36.8; O2SAT 94
[2020-09-24 21:46] LABS: Bedside Glucose 140 mg/dL (70-110)
[2020-09-24 22:00] VITALS: RESP 17; O2SAT 95
[2020-09-24] MEDS: Donepezil HCl 5 MG Tablet PO (22:00)
[2020-09-24] MEDS: Atorvastatin Calcium 80 MG Tablet PO (22:00)
[2020-09-24] MEDS: QUEtiapine 25 MG Tablet 12.5 MG PO (22:00)
[2020-09-25] MEDS: Dext 5%-0.45% NS 1,000 ML 75 ML IV (04:30)
[2020-09-25] MEDS: Menthol/Lanolin/Calamine/Znox 113 GM Tube 1 APPLIC TOPICAL ×2 (05:12→21:43)
[2020-09-25] MEDS: Levothyroxine 75 MCG Tablet PO (05:12)
[2020-09-25 07:06] LABS: Bedside Glucose 165 mg/dL (70-110)
[2020-09-25 07:29] VITALS: O2SAT 96
[2020-09-25 07:39] VITALS: BP 144/78; PULSE 49; RESP 18; TEMP 36.6; O2SAT 98
[2020-09-25] MEDS: Insulin Lispro 100 UNIT/ML INSULN.PEN SC (08:10)
[2020-09-25] MEDS: Sertraline 50 MG Tablet 25 MG PO (08:11)
[2020-09-25] MEDS: Clopidogrel Bisulfate 75 MG Tablet PO (08:11)
[2020-09-25] MEDS: Aspirin 81 MG TAB.CHEW PO (08:11)
[2020-09-25] MEDS: Lisinopril 5 MG Tablet PO (08:11)
--- NOTE | 2020-09-25 11:05 | NURSING ---
apical pulse noted to be 49 this am when assessed and 46 when re-assessed at a later time. Dr. Liu notified and ordered to hold 1000 dose of Toprolol 25 mg. pt shows no distress at this time. call light within reach and PA attached.
[2020-09-25 11:15] LABS: Bedside Glucose 107 mg/dL (70-110)
[2020-09-25] MEDS: Tamsulosin HCl 0.4 MG Capsule PO (16:41)
[2020-09-25 16:55] LABS: Bedside Glucose 145 mg/dL (70-110)
[2020-09-25 21:41] VITALS: BP 163/89; PULSE 65; RESP 16; TEMP 36.8; O2SAT 97
[2020-09-25] MEDS: Atorvastatin Calcium 80 MG Tablet PO (21:43)
[2020-09-25] MEDS: Donepezil HCl 5 MG Tablet PO (21:43)
[2020-09-25] MEDS: QUEtiapine 25 MG Tablet 12.5 MG PO (21:43)
[2020-09-25 22:00] VITALS: PULSE 48; O2SAT 95
[2020-09-25 22:21] LABS: Bedside Glucose 137 mg/dL (70-110)
[2020-09-26] MEDS: Levothyroxine 75 MCG Tablet PO (06:01)
[2020-09-26] MEDS: Menthol/Lanolin/Calamine/Znox 113 GM Tube 1 APPLIC TOPICAL ×2 (06:02→21:49)
[2020-09-26 06:45] LABS: Bedside Glucose 112 mg/dL (70-110)
[2020-09-26 07:00] LABS: Anion Gap 4 (5-15); BUN 24 mg/dL (7-18); BUN/Creat Ratio 24.4 RATIO (10-20); Calcium,Total 8.5 mg/dL (8.5-10.1); Chloride 111 mmol/L (98-107); Creatinine, Serum 0.98 mg/dL (0.70-1.30); EST Glomerular Filtration Rate 78 mL/min (>60); Est Glom Filt Rate - Afr Amer 94 mL/min (>60); Glucose 112 mg/dL (74-106); Sodium Level 143 mmol/L (136-145)
[2020-09-26 07:16] VITALS: O2SAT 91
--- NOTE | 2020-09-26 07:30 | NURSING ---
Reviewed and agree with instructor bus trolley and taxi documentation and charting.
[2020-09-26] MEDS: Clopidogrel Bisulfate 75 MG Tablet PO (08:45)
[2020-09-26] MEDS: Aspirin 81 MG TAB.CHEW PO (08:45)
[2020-09-26 08:46] VITALS: BP 152/88; PULSE 58
[2020-09-26] MEDS: Metoprolol(XL)Succ 25 MG Tablet PO (08:46)
[2020-09-26] MEDS: Lisinopril 5 MG Tablet PO (08:46)
[2020-09-26] MEDS: Sertraline 50 MG Tablet 25 MG PO (08:46)
[2020-09-26 09:07] VITALS: BP 152/88; PULSE 58; RESP 16; TEMP 36.5; O2SAT 96
[2020-09-26] MEDS: Insulin Lispro 100 UNIT/ML INSULN.PEN SC (12:04)
[2020-09-26 12:05] LABS: Bedside Glucose 153 mg/dL (70-110)
--- NOTE | 2020-09-26 12:27 | PCM.PROGNOTE ---
Patient Problems: Active and Suspected Problems (Last Reviewed 09/16/20 @ 18:[address] 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 Also with multiple white matter hyperintensities distributed throughout the deep white matter tracts of the bilateral cerebral hemispheres consistent with moderate chronic white matter ischemic changes. Microscopic hematuria (Acute) With urate crystals present Encephalopathy acute (Acute) due to CVA in pt with underlying dementia Subjective: Afebrile VSS -blood pressure is not adequately controlled. Since 09/24/2020 at 7 PM the blood pressure has ranged from 144/78-160 3/89. Metoprolol has been on hold since Saturday for bradycardia. This is likely why the blood pressure is elevated. Heart rate today is 58 bpm. He did get Metoprolol this morning. TSH was normal earlier in the admission Maintaining appropriate oxygen saturation on RA Oral intake is poor He was started on IV fluids yesterday for lethargy and poor oral intake. He is constantly incontinent of urine. Post void residuals have been consistently less than 150. Last bowel movement was 09/24/2020. Discussed with nursing - no problems that need addressed Reviewed the PT/OT/ST notes Medication list reviewed. All lab was personally reviewed. Creatinine today is 0.98, down from 1.71 on 09/23/2020. The BUN is 24, down from 43. This is after 2 units of PRBC's. Blood sugar record was reviewed. Blood sugars are well controlled with no blood sugars greater than 160 and no hypoglycemia and no tx. Has received PRN Lispro on only 2 occasions for BS > 150......1 unit only No complaints. Denies CP, SOB, palpitations, lightheadedness, nausea, vomiting, abdominal pain. Still having mostly one-word answers. - Physical Exam Vitals/I&O's: Vital Signs Temp Pulse Resp BP Pulse Ox 97.7 F L 58 L 16 152/88 H 96 09/26/20 09:07 09/26/20 09:07 09/26/20 09:07 09/26/20 09:07 09/26/20 09:07 Oxygen Flow Rate (L/min) 2 Oxygen Delivery Method Room Air Weight: 177 lb 4.026 oz Body Mass Index (BMI) 29.4 Finger Stick Blood Glucose 154 Intake and Output for Last 24 Hours 09/24/20 09/25/20 09/26/20 23:59 23:59 23:59 Intake Total 740 / 740 1792.5 / 1792.5 947.5 / 947.5 Output Total 300 / 300 400 / 400 Balance 440 / 440 1392.5 / 1392.5 947.5 / 947.5 General: - - He is awake but, not what I would describe as alert. HEENT: - - Pupils are equal round and reactive to light Oral: Dry Mucosa - but imroved since IV fluids Neck: Supple, No Nodes, Trachea Midline Lungs: Clear to auscultation, Diminished Cardiovascular: Regular Rhythm, Normal S1, Normal S2, No Ectopic Activity, Bradycardic, No rub noted, No Gallop Abdomen: Bowel Sounds Present, Soft, - - No guarding with palpation Extremities: No cyanosis, No edema Skin: No rashes, No breakdown Neurological: - - no significant change in the neuro exam from Saturday....maybe a little less lethargic Psych/Mental Status: Flat Affect Laboratory Results 09/25/20 16:44: POC Glucose 145 H 09/25/20 21:52: POC Glucose 137 H 09/26/20 06:09: POC Glucose 112 H 09/26/20 06:37: Sodium 143, Potassium 4.0, Chloride 111 H, Carbon Dioxide 28.0, Anion Gap 4 L, BUN 24 H, Creatinine 0.98, Estim Creat Clear Calc 52.30, Est GFR (MDRD) Af Amer 94, Est GFR (MDRD) Non-Af 78, BUN/Creatinine Ratio 24.4 H, Glucose 112 H, Calcium 8.5 09/26/20 12:01: POC Glucose 153 H Current Medications Acetaminophen (Acetaminophen 325 Mg Tablet) 650 mg PO Q4H PRN PRN PRN Reason: Headache(1-10)/Temp>99.6F Last Admin: 09/19/20 07:40 Dose: 650 mg Documented by: Aspirin (Aspirin 81 Mg Tab.Chew) 81 mg PO DAILY@0800 [facility] Last Admin: 09/26/20 08:45 Dose: 81 mg Documented by: Atorvastatin Calcium (Atorvastatin Calcium 80 Mg Tablet) 80 mg PO QHS [facility] Last Admin: 09/25/20 21:43 Dose: 80 mg Documented by: Bisacodyl (Bisacodyl 10 Mg Suppository) 10 mg RECTAL .PRN X 1 PRN PRN Reason: Constipation Calamine/Phenol (Menthol/Lanolin/Calamine/Znox 113 Gm Tube) 1 applic TOPICAL BID@0600,2200 [facility]; Protocol Last Admin: 09/26/20 06:02 Dose: 1 applicatio Documented by: Clopidogrel Bisulfate (Clopidogrel Bisulfate 75 Mg Tablet) 75 mg PO DAILY [facility] Last Admin: 09/26/20 08:45 Dose: 75 mg Documented by: Donepezil HCl (Donepezil Hcl 5 Mg Tablet) 5 mg PO QHS [facility] Last Admin: 09/25/20 21:43 Dose: 5 mg Documented by: Furosemide (Furosemide 20 Mg Tablet) 20 mg PO DAILY [facility] Last Admin: 09/22/20 08:00 Dose: 20 mg Documented by: Haloperidol (Haloperidol 1 Mg Tablet) 0.5 mg PO Q6H PRN PRN PRN Reason: SEVERE AGITATION Insulin Human Lispro (Insulin Lispro 100 Unit/Ml Insuln.Pen) 0 unit SC TIDAC [facility]; Protocol Last Admin: 09/26/20 12:04 Dose: 1 u Documented by: Levothyroxine Sodium (Levothyroxine 75 Mcg Tablet) 75 mcg PO DAILY@0600 [facility] Last Admin: 09/26/20 06:01 Dose: 75 mcg Documented by: Lisinopril (Lisinopril 5 Mg Tablet) 5 mg PO DAILY [facility] Last Admin: 09/26/20 08:46 Dose: 5 mg Documented by: Magnesium Hydroxide (Magnesium Hydroxide 30 Ml Udc) 30 ml PO .PRN X 1 PRN PRN Reason: Constipation Metoprolol Succinate (Metoprolol(Xl)Succ 25 Mg Tablet) 25 mg PO DAILY [facility] Last Admin: 09/26/20 08:46 Dose: 25 mg Documented by: Quetiapine Fumarate (Quetiapine 25 Mg Tablet) 12.5 mg PO [facility] Last Admin: 09/25/20 21:43 Dose: 12.5 mg Documented by: Senna/Docusate Sodium (Senna/Docusate Sodium 1 Tablet) 2 tablet PO BID PRN PRN Reason: CONSTIPATION Sertraline HCl (Sertraline 50 Mg Tablet) 25 mg PO DAILY [facility] Last Admin: 09/26/20 08:46 Dose: 25 mg Documented by: Sodium Chloride (0.9% Saline Lock 10 Ml Syringe) 10 - 40 ml IV UD PRN PRN Reason: SALINE FLUSH Last Admin: 09/18/20 18:28 Dose: 10 ml Documented by: Tamsulosin HCl (Tamsulosin Hcl 0.4 Mg Capsule) 0.4 mg PO DAILY@1730 [facility] Last Admin: 09/25/20 16:41 Dose: 0.4 mg Documented by: Medical Necessity - Tobacco Use Smoking Status: Never smoker Tobacco Use: Non-smoker Assessment/Plan All Active Problems (Last Reviewed 09/16/20 @ 18:[address] Tri Liu, DO) Left-sided weakness (Acute) Elevated troponin (Acute) CVA (cerebral vascular accident) (Acute) Microscopic hematuria (Acute) Encephalopathy acute (Acute) Impressions 1. 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 Now with visual field cut, dysarthria, L facial droop and he is flaccid in the left arm and leg. 2. acute encephalopathy on chronic dementia - stable at the present 3. HTN 4. Hyperlipidemia 5. Hypothyroidism -troponin was elevated to 4.35 in May 2020 and the patient cannot tell me if his levothyroxine was increased at that time. 6. History of heart failure with preserved ejection fraction 7. Wall motion abnormalities in the posterior and lateral wall of the heart on recent echocardiogram in a patient with previously uncontrolled diabetes mellitus type 2, untreated hyperlipidemia and hypertension. This indicates to me he most likely has coronary artery disease, especially since he has had lacunar infarcts in the past and has fairly diffuse white matter ischemic change in the brain. There is no history of a stress test in the prior medical record [facility] Seen by cardiology. No intervention at this time. Will continue medical management only. 8. Elevated troponin - Likely due to NSTEMI. 9. Chronic renal failure stage III a 10. mild pulmonary HTN with a RV systolic estimated at 40-45 Why? 11. BPH 12. hx of an abnormal EKG in the past 13. Diabetic peripheral polyneuropathy 14. Longstanding diabetes mellitus type 2-currently diet controlled with a hemoglobin A1c of 6.6 at presentation to the hospital 15. Left vertebral artery stenosis 16. Microscopic hematuria with normal PT and PTT 17. History of hallucinations in the past-on Risperdal at 1 time. 18. sleep disordered breathing 19. bradycardia EKG today shows SB with ST and T wave not changed significantly from previous EKG's Lopressor has been decreased to 12.5 mg once a day...... Will increase the Lisinopril for better BP control If the bradycardia persists will need to DC the beta heather and will likely start a CCB - probably Amlodipine Dtr is more interested in keeping him comfortable but, would like him to be more functional since she will be taking him home, possibly with hospice Continue therapy Continue to monitor VS's closely and adjust medications accordingly Inpatient E&M: 40619 Subs Hosp L2
[2020-09-26 14:15] VITALS: BP 150/80; PULSE 55; RESP 17; TEMP 36.6; O2SAT 96
[2020-09-26] MEDS: Tamsulosin HCl 0.4 MG Capsule PO (17:06)
[2020-09-26 17:10] LABS: Bedside Glucose 104 mg/dL (70-110)
[2020-09-26 19:17] VITALS: BP 160/85; PULSE 50; RESP 18; TEMP 36.4; O2SAT 97
[2020-09-26] MEDS: QUEtiapine 25 MG Tablet 12.5 MG PO (21:49)
[2020-09-26] MEDS: Donepezil HCl 5 MG Tablet PO (21:49)
[2020-09-26] MEDS: Atorvastatin Calcium 80 MG Tablet PO (21:49)
[2020-09-27] MEDS: Menthol/Lanolin/Calamine/Znox 113 GM Tube 1 APPLIC TOPICAL ×2 (05:22→23:04)
[2020-09-27] MEDS: Levothyroxine 75 MCG Tablet PO (05:22)
--- NOTE | 2020-09-27 06:36 | EKG12_ITS ---
Test Reason : Blood Pressure : / mmHG Vent. Rate : 042 BPM Atrial Rate : 042 BPM P-R Int : 188 ms QRS Dur : 130 ms QT Int : 484 ms P-R-T Axes : 067 -07 220 degrees QTc Int : 404 ms Marked sinus bradycardia Non-specific intra-ventricular conduction block T wave abnormality, consider lateral ischemia Abnormal ECG Confirmed by DISHA STROUD, SANTOS ([id number]), industrial editor SHAHNAZ ROGER ([id number]) on 09/28/2020 8:57:51 AM Referred By: Tri Liu Confirmed By:SANTOS GAUTHIER MD
[2020-09-27 06:46] LABS: Bedside Glucose 112 mg/dL (70-110)
[2020-09-27 07:15] VITALS: O2SAT 92
[2020-09-27 07:37] VITALS: PULSE 48
[2020-09-27] MEDS: Clopidogrel Bisulfate 75 MG Tablet PO (07:37)
[2020-09-27] MEDS: Aspirin 81 MG TAB.CHEW PO (07:37)
[2020-09-27] MEDS: Lisinopril 5 MG Tablet PO (07:37)
[2020-09-27] MEDS: Sertraline 50 MG Tablet 25 MG PO (07:37)
[2020-09-27] MEDS: Acetaminophen 325 MG Tablet 650 MG PO (07:41)
[2020-09-27 09:32] VITALS: BP 156/76; PULSE 52; RESP 16; TEMP 36.8; O2SAT 97
[2020-09-27 14:26] VITALS: BP 143/70; PULSE 49
[2020-09-27 17:11] LABS: Bedside Glucose 79 mg/dL (70-110)
[2020-09-27] MEDS: Tamsulosin HCl 0.4 MG Capsule PO (18:01)
[2020-09-27 19:27] VITALS: BP 138/81; PULSE 48; RESP 17; TEMP 36.6; O2SAT 98
[2020-09-27] MEDS: QUEtiapine 25 MG Tablet 12.5 MG PO (23:02)
[2020-09-27] MEDS: Atorvastatin Calcium 80 MG Tablet PO (23:03)
[2020-09-27] MEDS: Donepezil HCl 5 MG Tablet PO (23:03)
[2020-09-27] MEDS: 0.9% Saline Lock 10 ML Syringe IV (23:13)
[2020-09-28] MEDS: Levothyroxine 75 MCG Tablet PO (06:54)
[2020-09-28] MEDS: Menthol/Lanolin/Calamine/Znox 113 GM Tube 1 APPLIC TOPICAL ×2 (06:54→21:49)
[2020-09-28 07:11] LABS: Bedside Glucose 110 mg/dL (70-110)
[2020-09-28 08:00] VITALS: BP 142/81; PULSE 46; RESP 16; TEMP 36.4; O2SAT 99
[2020-09-28 08:24] VITALS: PULSE 52
[2020-09-28] MEDS: Clopidogrel Bisulfate 75 MG Tablet PO (08:25)
[2020-09-28] MEDS: Lisinopril 10 MG Tablet PO (08:25)
[2020-09-28] MEDS: Aspirin 81 MG TAB.CHEW PO (08:26)
[2020-09-28] MEDS: Sertraline 50 MG Tablet 25 MG PO (08:26)
[2020-09-28 09:16] VITALS: PULSE 52
[2020-09-28 14:45] VITALS: BP 165/80; PULSE 53; RESP 16; TEMP 36.2; O2SAT 97
[2020-09-28 17:01] LABS: Bedside Glucose 133 mg/dL (70-110)
[2020-09-28] MEDS: Tamsulosin HCl 0.4 MG Capsule PO (17:27)
[2020-09-28 19:00] VITALS: BP 147/88; PULSE 52; RESP 16; TEMP 36.9; O2SAT 95
[2020-09-28] MEDS: Atorvastatin Calcium 80 MG Tablet PO (21:43)
[2020-09-28] MEDS: QUEtiapine 25 MG Tablet 12.5 MG PO (21:44)
[2020-09-28] MEDS: Donepezil HCl 5 MG Tablet PO (21:44)
[2020-09-29] MEDS: Levothyroxine 75 MCG Tablet PO (05:33)
[2020-09-29] MEDS: Menthol/Lanolin/Calamine/Znox 113 GM Tube 1 APPLIC TOPICAL ×2 (05:35→20:01)
[2020-09-29 06:21] LABS: Bedside Glucose 127 mg/dL (70-110)
[2020-09-29 07:00] VITALS: BP 136/80; PULSE 45; RESP 16; TEMP 36.3; O2SAT 100
[2020-09-29] MEDS: Clopidogrel Bisulfate 75 MG Tablet PO (07:40)
[2020-09-29] MEDS: Lisinopril 10 MG Tablet PO (07:40)
[2020-09-29] MEDS: Sertraline 50 MG Tablet 25 MG PO (07:40)
[2020-09-29] MEDS: Aspirin 81 MG TAB.CHEW PO (07:40)
[2020-09-29 07:42] VITALS: PULSE 54
--- NOTE | 2020-09-29 10:14 | CASEMGMT ---
Social Work IDT met with patient and daughter via conference call for Team meeting. Discussed patient's progress in therapy. Pt is trailing slideboard tx, SPT max x2, or Saralift. There is disconnect for pt to understand to stand. However, once on feet does well. Walking on wall rail max x1 with x1 w/c follow, sitting edge of mat - leans forward. OT and nursing using Saralift to tx and able to stand 5-6 mins. Pt still having left side weakness. Pt is max for UE dressing, max x2 for LE dressing, trailing AE,, using Saralift x2 for toilet tx and tasks to BSC, but pt is continent. ST has pt on nectar thick diet, FFWP, working on slurred speech, low volume - which dtr reports is baseline - max xues for pt to follow strategies but no carryover, poor alertness and orientation. Pt eating 50-100%. Explained Medicare approve 23 days with EDC 10/09. Dtr is meeting with hospice 10/13. IDT agreeable to DC 10/07, dtr appreciative. Hospice will provide all needed DME and assist with care. Will Reteam next week. DC 10/07. Elli Adamson, COUNT ROOM CLERK [employer]
[2020-09-29 14:00] VITALS: BP 152/78; PULSE 52; RESP 20; TEMP 36.6
[2020-09-29 16:40] LABS: Bedside Glucose 125 mg/dL (70-110)
[2020-09-29] MEDS: Tamsulosin HCl 0.4 MG Capsule PO (17:36)
--- NOTE | 2020-09-29 18:31 | PN_ITS ---
Patient Problems: Active and Suspected Problems (Last Reviewed 09/16/20 @ 18:[address] 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 Also with multiple white matter hyperintensities distributed throughout the deep white matter tracts of the bilateral cerebral hemispheres consistent with moderate chronic white matter ischemic changes. Microscopic hematuria (Acute) With urate crystals present Encephalopathy acute (Acute) due to CVA in pt with underlying dementia Subjective: Mr. Bernabe was seen on team rounds today. His daughter Chayito participated by phone. Afebrile VSS-the blood pressures are not at goal. Heart rate is mostly in the 50s. I suspect he has sick sinus syndrome. Maintaining appropriate oxygen saturation on RA when awake Oral intake is less than 1000 cc daily. He is eating 50 to 75% of his meals. He is incontinent of urine and stool Last bowel movement was 09/28/2020 Discussed with nursing - no problems that need addressed Reviewed the PT/OT/ST notes Medication list reviewed. He denied pain today and also denies cough and SOB. He answers yes and no to my questions. He needs the Sera lift to off the bed and into a chair. He does not cough when he is eating and drinking. - Physical Exam Vitals/I&O's: Vital Signs Temp Pulse Resp BP Pulse Ox 97.9 F 52 L 20 H 152/78 H 100 09/29/20 14:00 09/29/20 14:00 09/29/20 14:00 09/29/20 14:00 09/29/20 07:00 Oxygen Flow Rate (L/min) 2 Oxygen Delivery Method Room Air Weight: 177 lb 4.026 oz Body Mass Index (BMI) 29.4 Finger Stick Blood Glucose 154 Intake and Output for Last 24 Hours 09/27/20 09/28/20 09/29/20 23:59 23:59 23:59 Intake Total 960 / 960 840 / 840 620 / 620 Output Total 300 / 300 200 / 200 150 / 150 Balance 660 / 660 640 / 640 470 / 470 General: Alert - he is much more alert than he was at admission to the rehab unit, Cooperative, No apparent distress, - - no behavior issues. HEENT: - - he has better color in his face now and he makes good eye contact when I am speaking to him Oral: Dry Mucosa Neck: No Nuchal Rigidity, Trachea Midline Lungs: Diminished - - he does not take deep breaths when I ask him to all the time. He is not tachypneic at rest and he does not seem to get SOB when he is wall walking. He has no orthopnea. Cardiovascular: Regular rate - resting HR is a little high, Regular Rhythm, Normal S1, Normal S2, No Gallop Abdomen: Bowel Sounds Present, Soft, Non Tender, Non-Distended Extremities: No edema Skin: No rashes, No breakdown Neurological: - - He is less lethargic and more alert than last week. He makes better eye contact this week. He is walking at the wall rail but the PT still has to advance the left foot for him. Still unable to maintain balance when sitting at the bedside. He requires moderate assistance with bathing but maximum Psych/Mental Status: Flat Affect, - - making better eye contact now and more alert. Laboratory Results 09/29/20 05:54: POC Glucose 127 H 09/29/20 16:31: POC Glucose 125 H Current Medications Acetaminophen (Acetaminophen 325 Mg Tablet) 650 mg PO Q4H PRN PRN PRN Reason: Headache(1-10)/Temp>99.6F Last Admin: 09/27/20 07:41 Dose: 650 mg Documented by: Aspirin (Aspirin 81 Mg Tab.Chew) 81 mg PO DAILY@0800 [facility] Last Admin: 09/29/20 07:40 Dose: 81 mg Documented by: Atorvastatin Calcium (Atorvastatin Calcium 80 Mg Tablet) 80 mg PO QHS [facility] Last Admin: 09/28/20 21:43 Dose: 80 mg Documented by: Bisacodyl (Bisacodyl 10 Mg Suppository) 10 mg RECTAL .PRN X 1 PRN PRN Reason: Constipation Calamine/Phenol (Menthol/Lanolin/Calamine/Znox 113 Gm Tube) 1 applic TOPICAL BID@0600,2200 [facility]; Protocol Last Admin: 09/29/20 05:35 Dose: 1 applicatio Documented by: Clopidogrel Bisulfate (Clopidogrel Bisulfate 75 Mg Tablet) 75 mg PO DAILY [facility] Last Admin: 09/29/20 07:40 Dose: 75 mg Documented by: Donepezil HCl (Donepezil Hcl 5 Mg Tablet) 5 mg PO QHS [facility] Last Admin: 09/28/20 21:44 Dose: 5 mg Documented by: Haloperidol (Haloperidol 1 Mg Tablet) 0.5 mg PO Q6H PRN PRN PRN Reason: SEVERE AGITATION Levothyroxine Sodium (Levothyroxine 75 Mcg Tablet) 75 mcg PO DAILY@0600 [facility] Last Admin: 09/29/20 05:33 Dose: 75 mcg Documented by: Lisinopril (Lisinopril 10 Mg Tablet) 10 mg PO DAILY [facility] Last Admin: 09/29/20 07:40 Dose: 10 mg Documented by: Magnesium Hydroxide (Magnesium Hydroxide 30 Ml Udc) 30 ml PO .PRN X 1 PRN PRN Reason: Constipation Quetiapine Fumarate (Quetiapine 25 Mg Tablet) 12.5 mg PO [facility] Last Admin: 09/28/20 21:44 Dose: 12.5 mg Documented by: Senna/Docusate Sodium (Senna/Docusate Sodium 1 Tablet) 2 tablet PO BID PRN PRN Reason: CONSTIPATION Sertraline HCl (Sertraline 50 Mg Tablet) 25 mg PO DAILY [facility] Last Admin: 09/29/20 07:40 Dose: 25 mg Documented by: Sodium Chloride (0.9% Saline Lock 10 Ml Syringe) 10 - 40 ml IV UD PRN PRN Reason: SALINE FLUSH Last Admin: 09/27/20 23:13 Dose: 10 ml Documented by: Tamsulosin HCl (Tamsulosin Hcl 0.4 Mg Capsule) 0.4 mg PO DAILY@1730 [facility] Last Admin: 09/29/20 17:36 Dose: 0.4 mg Documented by: Medical Necessity - Tobacco Use Smoking Status: Never smoker Tobacco Use: Non-smoker Assessment/Plan All Active Problems (Last Reviewed 09/16/20 @ 18:[address] Tri Liu DO) Left-sided weakness (Acute) Elevated troponin (Acute) CVA (cerebral vascular accident) (Acute) Microscopic hematuria (Acute) Encephalopathy acute (Acute) Impressions 1. 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 Now with visual field cut, dysarthria, L facial droop and he is flaccid in the left arm and leg. 2. acute encephalopathy on chronic dementia - stable at the present 3. HTN 4. Hyperlipidemia 5. Hypothyroidism -troponin was elevated to 4.35 in May 2020 and the patient cannot tell me if his levothyroxine was increased at that time. 6. History of heart failure with preserved ejection fraction 7. Wall motion abnormalities in the posterior and lateral wall of the heart on recent echocardiogram in a patient with previously uncontrolled diabetes mellitus type 2, untreated hyperlipidemia and hypertension. This indicates to me he most likely has coronary artery disease, especially since he has had lacunar infarcts in the past and has fairly diffuse white matter ischemic change in the brain. There is no history of a stress test in the prior medical record [facility]. Seen by cardiology. No intervention at this time. Will continue medical management only. 8. Elevated troponin - Likely due to NSTEMI. 9. Chronic renal failure stage III a 10. mild pulmonary HTN with a RV systolic estimated at 40-45 Why? 11. BPH 12. hx of an abnormal EKG in the past 13. Diabetic peripheral polyneuropathy 14. Longstanding diabetes mellitus type 2-currently diet controlled with a hemoglobin A1c of 6.6 at presentation to the hospital 15. Left vertebral artery stenosis 16. Microscopic hematuria with normal PT and PTT 17. History of hallucinations in the past-on Risperdal at 1 time. 18. sleep disordered breathing 19. bradycardia - suspect he has some SSS. Had to DC the beta heather. The EKG showed SB with no heart block Chayito has an appt to talk with hospice on 10/03/20 After she meets with hospice will discuss with her what she wants to do with medications - I think she may want to discontinue anything that does not contribute to his comfort. Dementia is advanced.......he could not dress himself prior to the stroke. Would tend to continue the Sertraline and the Seroquel for depression and behavior issues......although he may not have these when he is home DC the [facility] E&M: [id number] [facility] Hosp L2
[2020-09-29 19:00] VITALS: BP 160/79; PULSE 58; RESP 18; TEMP 36.6; O2SAT 97
[2020-09-29 19:47] VITALS: PULSE 56; RESP 18
[2020-09-29] MEDS: Donepezil HCl 5 MG Tablet PO (20:02)
[2020-09-29] MEDS: QUEtiapine 25 MG Tablet 12.5 MG PO (20:02)
[2020-09-29] MEDS: Atorvastatin Calcium 80 MG Tablet PO (20:02)
[2020-09-29] MEDS: 0.9% Saline Lock 10 ML Syringe IV (20:09)
[2020-09-30] MEDS: Levothyroxine 75 MCG Tablet PO (05:59)
[2020-09-30] MEDS: Menthol/Lanolin/Calamine/Znox 113 GM Tube 1 APPLIC TOPICAL ×2 (05:59→22:06)
[2020-09-30 06:56] LABS: Bedside Glucose 158 mg/dL (70-110)
[2020-09-30 07:00] VITALS: BP 154/76; PULSE 52; RESP 17; TEMP 36.8; O2SAT 100
[2020-09-30 09:23] VITALS: PULSE 68; O2SAT 97
[2020-09-30] MEDS: amLODIPine 2.5 MG Tablet PO (09:24)
[2020-09-30] MEDS: Clopidogrel Bisulfate 75 MG Tablet PO (09:24)
[2020-09-30] MEDS: Sertraline 50 MG Tablet 25 MG PO (09:24)
[2020-09-30] MEDS: Aspirin 81 MG TAB.CHEW PO (09:24)
[2020-09-30] MEDS: Lisinopril 10 MG Tablet PO (09:24)
--- NOTE | 2020-09-30 11:13 | PN_ITS ---
Patient Problems: Active and Suspected Problems (Last Reviewed 09/16/20 @ 18:[address] 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 Also with multiple white matter hyperintensities distributed throughout the deep white matter tracts of the bilateral cerebral hemispheres consistent with moderate chronic white matter ischemic changes. Microscopic hematuria (Acute) With urate crystals present Encephalopathy acute (Acute) due to CVA in pt with underlying dementia Subjective: Afebrile VSS-heart rate has improved with discontinuation of the beta-heather. Blood pressure is still not at goal but he was just started on Norvasc today. Maintaining appropriate oxygen saturation on RA Oral intake is consistently less than 1000 cc daily. Discussed with nursing - no problems that need addressed Reviewed the PT/OT/ST notes Medication list reviewed. Blood sugars are adequately controlled in this patient who will be going home on hospice. He is smiling today and interacts with the staff. He denies pain and also denies SOB. No cough and he is not tachypneic. He feeds himself. He has been tolerating the Sertraline with no adverse side effects. I am going to increase the dose today to a more therapeutic dose. - Physical Exam Vitals/I&O's: Vital Signs Temp Pulse Resp BP Pulse Ox 98.2 F 68 17 154/76 H 97 09/30/20 07:00 09/30/20 09:23 09/30/20 07:00 09/30/20 07:00 09/30/20 09:23 Oxygen Flow Rate (L/min) 2 Oxygen Delivery Method Room Air Weight: 178 lb 9.191 oz Body Mass Index (BMI) 29.4 Finger Stick Blood Glucose 154 Intake and Output for Last 24 Hours 09/28/20 09/29/20 09/30/20 23:59 23:59 23:59 Intake Total 840 / 840 860 / 860 220 / 220 Output Total 200 / 200 150 / 150 Balance 640 / 640 710 / 710 220 / 220 General: Alert, Cooperative, No apparent distress Oral: Dry Mucosa Neck: No Nuchal Rigidity, Trachea Midline Lungs: Clear to auscultation, Diminished Cardiovascular: Regular rate, Regular Rhythm, Normal S1, Normal S2, No rub noted, No Gallop Abdomen: Soft, Non Tender Extremities: No edema, No Calf Tenderness Neurological: Facial Droop, Slurred Speech, - - He sat at the EOB for 5 minutes today.....leans heavily to the left. Requiring total assist with lower body dressing, toileting, toilet transfer, tub/shower transfer. He is max assist with upper body dressing and moderate assistance with bathing. He was minimal assistance with grooming today. Psych/Mental Status: - - more facial expression these past 2 days. He was laughing yesterdAY. He is making better eye contact. Laboratory Results 09/29/20 16:31: POC Glucose 125 H 09/30/20 06:50: POC Glucose 158 H Current Medications Acetaminophen (Acetaminophen 325 Mg Tablet) 650 mg PO Q4H PRN PRN PRN Reason: Headache(1-10)/Temp>99.6F Last Admin: 09/27/20 07:41 Dose: 650 mg Documented by: Amlodipine Besylate (Amlodipine 2.5 Mg Tablet) 2.5 mg PO DAILY [facility] Last Admin: 09/30/20 09:24 Dose: 2.5 mg Documented by: Aspirin (Aspirin 81 Mg Tab.Chew) 81 mg PO DAILY@0800 [facility] Last Admin: 09/30/20 09:24 Dose: 81 mg Documented by: Atorvastatin Calcium (Atorvastatin Calcium 80 Mg Tablet) 80 mg PO QHS [facility] Last Admin: 09/29/20 20:02 Dose: 80 mg Documented by: Bisacodyl (Bisacodyl 10 Mg Suppository) 10 mg RECTAL .PRN X 1 PRN PRN Reason: Constipation Calamine/Phenol (Menthol/Lanolin/Calamine/Znox 113 Gm Tube) 1 applic TOPICAL BID@0600,2200 [facility]; Protocol Last Admin: 09/30/20 05:59 Dose: 1 applicatio Documented by: Clopidogrel Bisulfate (Clopidogrel Bisulfate 75 Mg Tablet) 75 mg PO DAILY [facility] Last Admin: 09/30/20 09:24 Dose: 75 mg Documented by: Donepezil HCl (Donepezil Hcl 5 Mg Tablet) 5 mg PO QHS [facility] Last Admin: 09/29/20 20:02 Dose: 5 mg Documented by: Levothyroxine Sodium (Levothyroxine 75 Mcg Tablet) 75 mcg PO DAILY@0600 [facility] Last Admin: 09/30/20 05:59 Dose: 75 mcg Documented by: Lisinopril (Lisinopril 10 Mg Tablet) 10 mg PO DAILY [facility] Last Admin: 09/30/20 09:24 Dose: 10 mg Documented by: Magnesium Hydroxide (Magnesium Hydroxide 30 Ml Udc) 30 ml PO .PRN X 1 PRN PRN Reason: Constipation Quetiapine Fumarate (Quetiapine 25 Mg Tablet) 12.5 mg PO HS [facility] Last Admin: 09/29/20 20:02 Dose: 12.5 mg Documented by: Senna/Docusate Sodium (Senna/Docusate Sodium 1 Tablet) 2 tablet PO BID PRN PRN Reason: CONSTIPATION Sertraline HCl (Sertraline 50 Mg Tablet) 25 mg PO DAILY [facility] Last Admin: 09/30/20 09:24 Dose: 25 mg Documented by: Sodium Chloride (0.9% Saline Lock 10 Ml Syringe) 10 - 40 ml IV UD PRN PRN Reason: SALINE FLUSH Last Admin: 09/29/20 20:09 Dose: 10 ml Documented by: Tamsulosin HCl (Tamsulosin Hcl 0.4 Mg Capsule) 0.4 mg PO DAILY@1730 [facility] Last Admin: 09/29/20 17:36 Dose: 0.4 mg Documented by: Medical Necessity - Tobacco Use Smoking Status: Never smoker Tobacco Use: Non-smoker Assessment/Plan All Active Problems (Last Reviewed 09/16/20 @ 18:[address] Tri Liu, DO) Left-sided weakness (Acute) Elevated troponin (Acute) CVA (cerebral vascular accident) (Acute) Microscopic hematuria (Acute) Encephalopathy acute (Acute) Impressions 1. 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 Now with visual field cut, dysarthria, L facial droop and he is flaccid in the left arm and leg. 2. acute encephalopathy on chronic dementia - stable at the present 3. HTN - not at goal. 4. Hyperlipidemia 5. Hypothyroidism -troponin was elevated to 4.35 in May 2020 and the patient cannot tell me if his levothyroxine was increased at that time. 6. History of heart failure with preserved ejection fraction 7. Wall motion abnormalities in the posterior and lateral wall of the heart on recent echocardiogram in a patient with previously uncontrolled diabetes me llitus type 2, untreated hyperlipidemia and hypertension. This indicates to me he most likely has coronary artery disease, especially since he has had lacunar infarcts in the past and has fairly diffuse white matter ischemic change in the brain. There is no history of a stress test in the prior medical record [facility] Seen by cardiology. No intervention at this time. Will continue medical management only. 8. Elevated troponin - Likely due to NSTEMI. 9. Chronic renal failure stage III a 10. mild pulmonary HTN with a RV systolic estimated at 40-45 Why? 11. BPH 12. hx of an abnormal EKG in the past 13. Diabetic peripheral polyneuropathy 14. Longstanding diabetes mellitus type 2-currently diet controlled with a hemoglobin A1c of 6.6 at presentation to the hospital 15. Left vertebral artery stenosis 16. Microscopic hematuria with normal PT and PTT 17. History of hallucinations in the past-on Risperdal at 1 time. 18. sleep disordered breathing 19. bradycardia - suspect he has some SSS. Had to DC the beta heather. The EKG showed SB with no heart block. HR is improving with discontinuation of the beta hetaher continue to monitor the BP since Amlodipine was added to the drug regimen yesterday. Continue therapy Continue to encourage increased water intake recheck a BMP on Saturday Home with hospice most likely the end of next week. DC the ASA and continue the Plavix after 3 weeks of dual antiplatelet therapy.
[2020-09-30 17:00] VITALS: BP 158/75; PULSE 55; RESP 16; TEMP 36.8; O2SAT 96
[2020-09-30 17:20] LABS: Bedside Glucose 157 mg/dL (70-110)
[2020-09-30] MEDS: Tamsulosin HCl 0.4 MG Capsule PO (17:30)
[2020-09-30] MEDS: 0.9% Saline Lock 10 ML Syringe IV ×2 (17:33→22:09)
[2020-09-30 19:00] VITALS: BP 158/75; PULSE 58; RESP 16; TEMP 36.8; O2SAT 96
[2020-09-30 22:00] VITALS: PULSE 59; RESP 16
[2020-09-30] MEDS: QUEtiapine 25 MG Tablet 12.5 MG PO (22:06)
[2020-09-30] MEDS: Donepezil HCl 5 MG Tablet PO (22:06)
[2020-09-30] MEDS: Atorvastatin Calcium 80 MG Tablet PO (22:06)
[2020-10-01] MEDS: Levothyroxine 75 MCG Tablet PO (05:53)
[2020-10-01] MEDS: Menthol/Lanolin/Calamine/Znox 113 GM Tube 1 APPLIC TOPICAL ×2 (05:54→22:44)
[2020-10-01 06:40] LABS: Bedside Glucose 153 mg/dL (70-110)
[2020-10-01 07:00] VITALS: BP 142/86; PULSE 52; RESP 16; TEMP 36.6; O2SAT 96
[2020-10-01] MEDS: Clopidogrel Bisulfate 75 MG Tablet PO (09:19)
[2020-10-01] MEDS: Lisinopril 10 MG Tablet PO (09:19)
[2020-10-01] MEDS: amLODIPine 2.5 MG Tablet PO (09:19)
[2020-10-01] MEDS: Sertraline 50 MG Tablet 25 MG PO (09:19)
[2020-10-01] MEDS: Aspirin 81 MG TAB.CHEW PO (09:19)
[2020-10-01 14:00] VITALS: BP 142/73; PULSE 52; RESP 16; TEMP 37; O2SAT 96
[2020-10-01] MEDS: Tamsulosin HCl 0.4 MG Capsule PO (17:08)
[2020-10-01] MEDS: 0.9% Saline Lock 10 ML Syringe IV (17:16)
[2020-10-01 17:36] LABS: Bedside Glucose 125 mg/dL (70-110)
[2020-10-01 19:00] VITALS: BP 115/67; PULSE 53; RESP 16; TEMP 36.7; O2SAT 95
[2020-10-01] MEDS: QUEtiapine 25 MG Tablet 12.5 MG PO (22:43)
[2020-10-01] MEDS: Atorvastatin Calcium 80 MG Tablet PO (22:44)
[2020-10-01] MEDS: Donepezil HCl 5 MG Tablet PO (22:44)
[2020-10-02 06:26] LABS: Bedside Glucose 123 mg/dL (70-110)
[2020-10-02] MEDS: Levothyroxine 75 MCG Tablet PO (06:50)
[2020-10-02] MEDS: Menthol/Lanolin/Calamine/Znox 113 GM Tube 1 APPLIC TOPICAL ×2 (06:50→20:52)
[2020-10-02] MEDS: 0.9% Saline Lock 10 ML Syringe IV (06:57)
[2020-10-02 07:00] VITALS: BP 147/69; PULSE 50; RESP 16; TEMP 36.5; O2SAT 95
[2020-10-02] MEDS: amLODIPine 2.5 MG Tablet PO (08:13)
[2020-10-02] MEDS: Sertraline 50 MG Tablet 25 MG PO (08:13)
[2020-10-02] MEDS: Lisinopril 10 MG Tablet PO (08:13)
[2020-10-02] MEDS: Aspirin 81 MG TAB.CHEW PO (08:13)
[2020-10-02] MEDS: Clopidogrel Bisulfate 75 MG Tablet PO (08:13)
[2020-10-02 13:55] VITALS: BP 145/69; PULSE 56; RESP 16; TEMP 36.7; O2SAT 92
[2020-10-02] MEDS: Tamsulosin HCl 0.4 MG Capsule PO (16:50)
[2020-10-02 17:11] LABS: Bedside Glucose 110 mg/dL (70-110)
--- NOTE | 2020-10-02 18:51 | NURSING ---
Max assist x 2 staff members for stand pivot transfer to recliner. Patient severely weak to right side and severely weak to left side with flaccid left upper ext. The right side was unaffected by stroke but still severely weak and patient does not give much effort for assist. Stand up lift used for transfer to toilet for safety if needed.
[2020-10-02 19:00] VITALS: BP 142/71; PULSE 54; RESP 16; TEMP 36.1; O2SAT 94
[2020-10-02] MEDS: Donepezil HCl 5 MG Tablet PO (20:52)
[2020-10-02] MEDS: QUEtiapine 25 MG Tablet 12.5 MG PO (20:53)
[2020-10-02] MEDS: Atorvastatin Calcium 80 MG Tablet PO (20:53)
[2020-10-03] MEDS: Menthol/Lanolin/Calamine/Znox 113 GM Tube 1 APPLIC TOPICAL ×2 (04:47→21:13)
[2020-10-03] MEDS: Levothyroxine 75 MCG Tablet PO (04:47)
[2020-10-03 06:36] LABS: Bedside Glucose 123 mg/dL (70-110)
[2020-10-03 07:00] VITALS: BP 113/59; PULSE 55; RESP 14; TEMP 36.9; O2SAT 96
[2020-10-03 07:37] LABS: Anion Gap 6 (5-15); BUN 18 mg/dL (7-18); BUN/Creat Ratio 20.8 RATIO (10-20); Calcium,Total 8.8 mg/dL (8.5-10.1); Chloride 108 mmol/L (98-107); Creatinine, Serum 0.86 mg/dL (0.70-1.30); EST Glomerular Filtration Rate 90 mL/min (>60); Est Glom Filt Rate - Afr Amer 109 mL/min (>60); Estimated Creatinine Clearance 59.59 ml/min; Glucose 118 mg/dL (74-106); Potassium 3.9 mmol/L (3.5-5.1); Sodium Level 141 mmol/L (136-145)
[2020-10-03] MEDS: Sertraline 50 MG Tablet 25 MG PO (08:11)
[2020-10-03] MEDS: Lisinopril 10 MG Tablet PO (08:12)
[2020-10-03] MEDS: Aspirin 81 MG TAB.CHEW PO (08:12)
[2020-10-03] MEDS: Clopidogrel Bisulfate 75 MG Tablet PO (08:12)
[2020-10-03] MEDS: amLODIPine 2.5 MG Tablet PO (08:12)
--- NOTE | 2020-10-03 12:59 | PCM.PROGNOTE ---
Patient Problems: Active and Suspected Problems (Last Reviewed 09/16/20 @ 18:[address] 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 Also with multiple white matter hyperintensities distributed throughout the deep white matter tracts of the bilateral cerebral hemispheres consistent with moderate chronic white matter ischemic changes. Microscopic hematuria (Acute) With urate crystals present Encephalopathy acute (Acute) due to CVA in pt with underlying dementia Subjective: Afebrile VSS Maintaining appropriate oxygen saturation on RA Oral intake is [] Discussed with nursing - no problems that need addressed Reviewed the PT/OT/ST notes Medication list reviewed. Blood sugar record was reviewed. Blood sugars are well controlled with no medication. He has had no hypoglycemia. All lab was personally reviewed. Electrolytes are within normal limits. The BUN is 18 and the creatinine is 0.86. Calcium is within normal limits. He is able to stay hydrated. Not really making progress with ambulation at this point. Has not been able to progress to a WW/abdulaziz-walker. He is able to take steps at the wall rail but, requires total assist. He is also total assist with dressing. He is able to feed himself. Chayito is meeting with hospice today and I expect she will sign up. - Physical Exam Vitals/I&O's: Vital Signs Temp Pulse Resp BP Pulse Ox 98.4 F 55 L 14 113/59 L 96 10/03/20 07:00 10/03/20 07:00 10/03/20 07:00 10/03/20 07:00 10/03/20 07:00 Oxygen Flow Rate (L/min) 2 Oxygen Delivery Method Room Air Weight: 178 lb 9.191 oz Body Mass Index (BMI) 29.4 Finger Stick Blood Glucose 154 Intake and Output for Last 24 Hours 10/01/20 10/02/20 10/03/20 23:59 23:59 23:59 Intake Total 1300 / 1300 600 / 700 390 / 390 Output Total 100 / 100 100 / 100 200 / 200 Balance 1200 / 1200 500 / 600 190 / 190 General: Alert, Cooperative, No apparent distress, - - When he wants a nurse he yells and still not able to use the call light. His behavior is good on just 12.5 mg of Seroquel at HS and he is sleeping well. HEENT: Normocephalic Oral: Dry Mucosa Neck: Supple Lungs: Clear to auscultation, Diminished Cardiovascular: Regular Rhythm, Bradycardic Abdomen: Bowel Sounds Present, Soft, Non Tender Extremities: No edema Neurological: - - more alert, not able to walk......he walks along the wall rail only but requires max assist. He pays attn when I talk to him and is making good eye contact. Follow me when I move from 1 side of the bed to the other now. Laboratory Results 10/02/20 17:00: POC Glucose 110 10/03/20 06:26: POC Glucose 123 H 10/03/20 06:54: Sodium 141, Potassium 3.9, Chloride 108 H, Carbon Dioxide 27.0, Anion Gap 6, BUN 18, Creatinine 0.86, Estim Creat Clear Calc 59.59, Est GFR (MDRD) Af Amer 109, Est GFR (MDRD) Non-Af 90, BUN/Creatinine Ratio 20.8 H, Glucose 118 H, Calcium 8.8 Current Medications Acetaminophen (Acetaminophen 325 Mg Tablet) 650 mg PO Q4H PRN PRN PRN Reason: Headache(1-10)/Temp>99.6F Last Admin: 09/27/20 07:41 Dose: 650 mg Documented by: Amlodipine Besylate (Amlodipine 2.5 Mg Tablet) 2.5 mg PO DAILY [facility] Last Admin: 10/03/20 08:12 Dose: 2.5 mg Documented by: Aspirin (Aspirin 81 Mg Tab.Chew) 81 mg PO DAILY@0800 [facility] Last Admin: 10/03/20 08:12 Dose: 81 mg Documented by: Atorvastatin Calcium (Atorvastatin Calcium 80 Mg Tablet) 80 mg PO QHS [facility] Last Admin: 10/02/20 20:53 Dose: 80 mg Documented by: Bisacodyl (Bisacodyl 10 Mg Suppository) 10 mg RECTAL .PRN X 1 PRN PRN Reason: Constipation Calamine/Phenol (Menthol/Lanolin/Calamine/Znox 113 Gm Tube) 1 applic TOPICAL BID@0600,2200 [facility]; Protocol Last Admin: 10/03/20 04:47 Dose: 1 applicatio Documented by: Clopidogrel Bisulfate (Clopidogrel Bisulfate 75 Mg Tablet) 75 mg PO DAILY [facility] Last Admin: 10/03/20 08:12 Dose: 75 mg Documented by: Donepezil HCl (Donepezil Hcl 5 Mg Tablet) 5 mg PO QHS [facility] Last Admin: 10/02/20 20:52 Dose: 5 mg Documented by: Levothyroxine Sodium (Levothyroxine 75 Mcg Tablet) 75 mcg PO DAILY@0600 [facility] Last Admin: 10/03/20 04:47 Dose: 75 mcg Documented by: Lisinopril (Lisinopril 10 Mg Tablet) 10 mg PO DAILY [facility] Last Admin: 10/03/20 08:12 Dose: 10 mg Documented by: Magnesium Hydroxide (Magnesium Hydroxide 30 Ml Udc) 30 ml PO .PRN X 1 PRN PRN Reason: Constipation Quetiapine Fumarate (Quetiapine 25 Mg Tablet) 12.5 mg PO HS [facility] Last Admin: 10/02/20 20:53 Dose: 12.5 mg Documented by: Senna/Docusate Sodium (Senna/Docusate Sodium 1 Tablet) 2 tablet PO BID PRN PRN Reason: CONSTIPATION Sertraline HCl (Sertraline 50 Mg Tablet) 25 mg PO DAILY [facility] Last Admin: 10/03/20 08:11 Dose: 25 mg Documented by: Sodium Chloride (0.9% Saline Lock 10 Ml Syringe) 10 - 40 ml IV UD PRN PRN Reason: SALINE FLUSH Last Admin: 10/02/20 06:57 Dose: 10 ml Documented by: Tamsulosin HCl (Tamsulosin Hcl 0.4 Mg Capsule) 0.4 mg PO DAILY@1730 [facility] Last Admin: 10/02/20 16:50 Dose: 0.4 mg Documented by: Medical Necessity - Tobacco Use Smoking Status: Never smoker Tobacco Use: Non-smoker Assessment/Plan All Active Problems (Last Reviewed 09/16/20 @ 18:[address] Tri Liu, DO) Left-sided weakness (Acute) Elevated troponin (Acute) CVA (cerebral vascular accident) (Acute) Microscopic hematuria (Acute) Encephalopathy acute (Acute) Impressions 1. 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 Now with visual field cut, dysarthria, L facial droop and he is flaccid in the left arm and leg. 2. acute encephalopathy on chronic dementia - stable at the present 3. HTN - not at goal. 4. Hyperlipidemia 5. Hypothyroidism -troponin was elevated to 4.35 in May 2020 and the patient cannot tell me if his levothyroxine was increased at that time. 6. History of heart failure with preserved ejection fraction 7. Wall motion abnormalities in the posterior and lateral wall of the heart on recent echocardiogram in a patient with previously uncontrolled diabetes mellitus type 2, untreated hyperlipidemia and hypertension. This indicates to me he most likely has coronary artery disease, especially since he has had lacunar infarcts in the past and has fairly diffuse white matter ischemic change in the brain. There is no history of a stress test in the prior medical record [facility]. Seen by cardiology. No intervention at this time. Will continue medical management only. 8. Elevated troponin - Likely due to NSTEMI. 9. Chronic renal failure stage III a 10. mild pulmonary HTN with a RV systolic estimated at 40-45 Why? 11. BPH 12. hx of an abnormal EKG in the past 13. Diabetic peripheral polyneuropathy 14. Longstanding diabetes mellitus type 2-currently diet controlled with a hemoglobin A1c of 6.6 at presentation to the hospital 15. Left vertebral artery stenosis 16. Microscopic hematuria with normal PT and PTT 17. History of hallucinations in the past-on Risperdal at 1 time. 18. sleep disordered breathing 19. bradycardia - suspect he has some SSS. Had to DC the beta heather. The EKG showed SB with no heart block. HR is improving with discontinuation of the beta heather Continue therapy If Chayito signs up with hospice will talk to her about discontinuing non-essential medications - like Atorvastatin. Inpatient E&M: 51604 Subs Hosp L2
[2020-10-03 14:00] VITALS: BP 133/79; PULSE 61; RESP 18; TEMP 36.7; O2SAT 96
--- NOTE | 2020-10-03 14:48 | CASEMGMT ---
Social Work Dtr spoke with [facility] on this date. Hospice contacted SW to inform of admit papers signed. All DME will be in the home 10/06 and pt to [facility] home 10/07. Will schedule transport. NICOLETTE Marquez
[2020-10-03] MEDS: Tamsulosin HCl 0.4 MG Capsule PO (16:36)
[2020-10-03 17:01] LABS: Bedside Glucose 142 mg/dL (70-110)
[2020-10-03 19:00] VITALS: BP 144/82; PULSE 60; RESP 16; TEMP 36.9; O2SAT 96
[2020-10-03 21:00] VITALS: PULSE 60; RESP 16; O2SAT 96
[2020-10-03] MEDS: QUEtiapine 25 MG Tablet 12.5 MG PO (21:13)
[2020-10-03] MEDS: Atorvastatin Calcium 80 MG Tablet PO (21:13)
[2020-10-03] MEDS: Donepezil HCl 5 MG Tablet PO (21:13)
[2020-10-04] MEDS: Levothyroxine 75 MCG Tablet PO (05:43)
[2020-10-04] MEDS: Menthol/Lanolin/Calamine/Znox 113 GM Tube 1 APPLIC TOPICAL ×2 (05:44→19:56)
[2020-10-04 07:00] VITALS: BP 132/75; PULSE 50; RESP 16; TEMP 36.4; O2SAT 98
[2020-10-04 07:00] LABS: Bedside Glucose 157 mg/dL (70-110)
[2020-10-04] MEDS: Sertraline 50 MG Tablet 25 MG PO (08:46)
[2020-10-04] MEDS: Clopidogrel Bisulfate 75 MG Tablet PO (08:46)
[2020-10-04] MEDS: Aspirin 81 MG TAB.CHEW PO (08:46)
[2020-10-04] MEDS: amLODIPine 2.5 MG Tablet PO (08:46)
[2020-10-04] MEDS: Lisinopril 10 MG Tablet PO (08:47)
[2020-10-04 08:59] VITALS: PULSE 62
[2020-10-04 14:42] VITALS: BP 138/73; PULSE 54; RESP 18; TEMP 36.6; O2SAT 97
--- NOTE | 2020-10-04 16:19 | PCM.PN.BLA ---
Progress Note I talked with Chayito on the phone and she signed up with hospice yesterday. The bed and other equipment will be delivered on and we will DC on Saturday. She spoke with Mariah at hospice and I will touch base with Mariah tomorrow. I discussed discontinuing non-essential meds with Chayito and she is in agreement. Will DC Atorvastatin, Plavix, Aricept. Will continue the Sertraline since mood is better and he seems happier and more engaged. Will also continue the Seroquel at for behavior issues. Continue the Flomax for urine retention. May DC ASA after talking with Mariah. Will need oxygen at HS. STROKE Vital Signs/Narrative: Vital Signs Temp Pulse Resp BP Pulse Ox 10/04/20 14:42 97.9 F 54 L 18 138/73 H 97
[2020-10-04] MEDS: Tamsulosin HCl 0.4 MG Capsule PO (16:41)
[2020-10-04 16:50] LABS: Bedside Glucose 141 mg/dL (70-110)
[2020-10-04 18:16] LABS: Bacteria 0 SEEN /hpf (None Seen); Mucous, Urine 0 SEEN /hpf (<or=2+); White Blood Cells 0 SEEN /hpf (0-5)
[2020-10-04 18:18] LABS: Color, Urine Yellow (Yellow); Glucose, Dipstick Normal (Normal); Ketone-Dipstick Negative (Negative); Leukocyte Esterase-Dipstick Negative /ul (Negative); Nitrite-Dipstick Negative (Negative); Occult Blood-Urine 25 /ul (Negative); Protein-Dipstick Negative (Negative); Urine Bilirubin Dipstick Negative (Negative); Urine Clarity Clear (Clear); Urine Urobilinogen Normal (Normal)
[2020-10-04 18:28] LABS: Red Blood Cells-Urine 0-5 SEEN /hpf (0-5); Squamous Epithelial Cells - UA 0-5 SEEN /hpf (0-5)
[2020-10-04 19:28] VITALS: BP 130/86; PULSE 56; RESP 18; TEMP 36.5; O2SAT 100
[2020-10-04 19:45] VITALS: PULSE 56; RESP 18; O2SAT 100
[2020-10-04] MEDS: QUEtiapine 25 MG Tablet 12.5 MG PO (19:56)
--- NOTE | 2020-10-05 02:49 | NURSING ---
Reviewed and agree with CLAIM AUDITOR documentation and charting.
[2020-10-05] MEDS: Levothyroxine 75 MCG Tablet PO (04:50)
[2020-10-05] MEDS: Menthol/Lanolin/Calamine/Znox 113 GM Tube 1 APPLIC TOPICAL ×2 (04:50→22:32)
[2020-10-05 06:41] LABS: Bedside Glucose 131 mg/dL (70-110)
[2020-10-05 07:00] VITALS: BP 111/70; PULSE 56; RESP 16; TEMP 36.9; O2SAT 98
[2020-10-05] MEDS: Lisinopril 10 MG Tablet PO (07:55)
[2020-10-05] MEDS: amLODIPine 2.5 MG Tablet PO (07:55)
[2020-10-05] MEDS: Sertraline 50 MG Tablet PO (07:55)
--- NOTE | 2020-10-05 09:27 | PCM.PN.BLA ---
Progress Note Afebrile Blood pressure is controlled. The heart rate remains in the 50s despite discontinuation of the beta-heather. He does not seem to be symptomatic. He is maintaining appropriate oxygen saturation on room air while awake and also maintains good oxygen saturation at night while sleeping on 2 L of nasal O2 for sleep disordered breathing. I suspect he may have central sleep apnea related to the recent stroke. He looks comfortable. No behavior problems. Sleeping well. He is alert and we have not had any behavioral issues since the Seroquel was started. Will continue at DC. He continues to feed himself and he does not cough or choke with eating. He is cooperative with therapy. Lungs are diminished but he has very poor effort. He is not tachypneic and has no accessory muscle use. Heart-regular with decreased heart rate. No gallop, no rub. Abdomen-soft, nontender, nondistended, bowel sounds heard in all quadrants, good bowel function No peripheral edema Impressions 1. Physical debility secondary to recent ischemic CVA with severe right hemiparesis and dysphagia...... doing well with nectar thick liquids 2. Bradycardia-this has been a problem prior to the stroke and we had to discontinue metoprolol. Blood pressure is adequately controlled at present on low-dose amlodipine and Lisinopril. We are also using this because he has a hx of CAD and he can not tolerate beta blockers and Amlodipine tends to increase the HR a few beats. May be able to DC the Lisinopril and use only Amlodipine for BP control going forward. 3. DM II - diet controlled 4. urinary and fecal incontinence 5. Dementia 6. Depression - he has perked up significantly with Sertraline. Will continue at the current dose. Plan DC home with hospice on Saturday I spoke with Chayito on the phone and we are going to DC the meds not needed for comfort at this time. STROKE Vital Signs/Narrative: Vital Signs Temp Pulse Resp BP Pulse Ox 10/05/20 07:00 98.5 F 56 L 16 111/70 98 Inpatient E&M: 42933 Subs Hosp L2
[2020-10-05 14:00] VITALS: BP 144/54; PULSE 60; RESP 16; TEMP 36.6; O2SAT 95
[2020-10-05] MEDS: Tamsulosin HCl 0.4 MG Capsule PO (16:22)
[2020-10-05 16:51] LABS: Bedside Glucose 127 mg/dL (70-110)
[2020-10-05 19:00] VITALS: BP 146/94; PULSE 55; RESP 16; TEMP 37.2; O2SAT 96
[2020-10-05 22:00] VITALS: PULSE 58; RESP 17
[2020-10-05] MEDS: QUEtiapine 25 MG Tablet 12.5 MG PO (22:25)
[2020-10-06] MEDS: Levothyroxine 75 MCG Tablet PO (06:21)
[2020-10-06] MEDS: Menthol/Lanolin/Calamine/Znox 113 GM Tube 1 APPLIC TOPICAL ×2 (06:22→19:40)
[2020-10-06 06:46] LABS: Bedside Glucose 107 mg/dL (70-110)
[2020-10-06 07:00] VITALS: BP 140/88; PULSE 57; RESP 17; TEMP 36.9; O2SAT 100
[2020-10-06] MEDS: Lisinopril 10 MG Tablet PO (08:10)
[2020-10-06] MEDS: Sertraline 50 MG Tablet PO (08:10)
[2020-10-06] MEDS: amLODIPine 2.5 MG Tablet PO (08:10)
[2020-10-06 10:00] VITALS: PULSE 60; RESP 18
--- NOTE | 2020-10-06 11:33 | CASEMGMT ---
Social Work IDT met with patient and dtr via conference call for Team meeting. Discussed patient's progress in therapy. Pt is walking on the wall rail and HW max x1 and w/c follow x1, completing simple activities to work on posture, using x2 tx, max-total x2 for all ADLs, has left lateral lean and no functional movement in arm. Nursing using Saralift for tx. ST reporting word retrieval and following commands has improved - accurate 11/06, and with cues . Continuing to work on speech intelligibility, difficulty with orientation, and remains on nectar thick and FFWP diet. Hospice delivering all DME to house this date. Dtr to complete family training 10/07 at 0900, and transport coal picker for DC 1300. Plan: DC home with hospice 10/07 NICOLETTE Marquez
--- NOTE | 2020-10-06 12:00 | PCM.PN.BLA ---
Progress Note Mr. Bernabe was seen on team rounds today. His daughter Chayito participated by phone. Chayito will be coming into the rehab unit tomorrow a.m. to learn how to best move her father safely. Will need to get a Lala-lift or a Navid at home to safely move him from the bed to the WC or the toilet. Afebrile VSS Maintaining appropriate oxygen saturation on RA Oral intake is erratic He has gained about 2 pounds since admission to the rehab unit. He is feeding himself and usually eating well. He is having regular bowel movements. He is still incontinent of both urine and stool. He continues to sleep well with no behavioral problems. Discussed with nursing - no problems that need addressed Reviewed the PT/OT/ST notes Medication list reviewed. UA yesterday had 0 WBCs and 0-5 RBCs with no bacteria. He is very alert today. He is making good eye contact. Lungs-diminished due to inability to follow commands to take a deep breath. No Rales, no wheezes, he is not tachypneic and has no accessory muscle use. Mucous membranes are a little dry. No nuchal rigidity Heart-regular rhythm, mildly bradycardic. When I mention this to Chayito she said that he has had this problem in the past. We did take him off metoprolol and he is still bradycardic. Abdomen-soft, no guarding with palpation, bowel sounds present No peripheral edema No rashes, no breakdown Impressions 1. Physical debility post stroke 2. Dysphagia 3. Severe right-sided knee hemiparesis 4. Dementia-likely Alzheimer's 5. History of diabetes mellitus type 2-currently controlled with diet alone DC Kxms-Cdhew-sm has not had any hypoglycemia and blood sugars are consistently under 200. Chayito will come in tomorrow at 9 AM to work with PT/OT in how best to help her dad and have both of them be safe DC home with hospice tomorrow Inpatient E&M: 99947 Subs Hosp L2
--- NOTE | 2020-10-06 13:50 | PCM.DC ---
- Discharge Diagnoses Current Active Problems: Current Active and Chronic Problems (Last Reviewed 09/16/20 @ 18:[address] 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 Also with multiple white matter hyperintensities distributed throughout the deep white matter tracts of the bilateral cerebral hemispheres consistent with moderate chronic white matter ischemic changes. Diabetes mellitus type 2, controlled (Chronic) Chronic renal failure, stage 3 (moderate) (Chronic) Stenosis of left vertebral artery (Chronic) Dementia (Chronic) On Aricept BPH (benign prostatic hyperplasia) (Chronic) Microscopic hematuria (Acute) With urate crystals present Encephalopathy acute (Acute) due to CVA in pt with underlying dementia Diabetic peripheral neuropathy associated with type 2 diabetes mellitus (Chronic) Pulmonary hypertension (Chronic) Right ventricular systolic pressure estimated at 40-45 on echocardiogram in August 2020 Hypertension (Chronic) Hypothyroidism (Chronic) Hyperlipemia (Chronic) You will use the following diet at home:: No restrictions Your food should be the consistency of: Regular Your liquids should be the consistency of: [place] Thick May resume sexual activity in: No Restrictions Call your doctor if you observe: Fever of 101 or Higher, Inability to urinate, Inability to have a bowel movement, Shortness of breath, Fainting spells, Swelling in the ankles, Chest pain, Uncontrolled pain Additional Instructions: 1. I have stopped the medications that do not contribute to his comfort. I left the Amlodipine (Norvasc) to treat the BP and increase the heart rate a little. He does not tolerate Metoprolol any longer due to slow heart rate. 2. Seroquel (quetiapine) has been very effective in controlling behavior. He gets more confused and agitated at night and was yelling out all night. He is now sleeping well and we have had no more behavioral issues. He is cooperative and calm. 3. Chayito, this is a very wonderful and loving thing you are doing for your dad. It is a lot of work and because of your background you know this. More often than not people in your dad's condition go to a assisted because their families can not care for them. I admire you and your dad is a very gerri man. Remember to take care of yourself too. You mentioned that your siblings will be helping and that is great. Everyone needs a break once in a while. God bless you and your family. Allergies/Adverse Reactions: Allergies No Known Allergies Allergy (Verified 12/10/17 15:49) Medications to take at Discharge Levothyroxine [Synthroid] 75 mcg PO DAILY 04/23/16 Acetaminophen [Tylenol Tablet] 650 mg PO Q4H PRN PRN tab 09/16/20 Tamsulosin HCl [Flomax] 0.4 mg PO DAILY@1730 09/16/20 Amlodipine [Norvasc] 5 mg PO DAILY tab 10/06/20 Bisacodyl [Dulcolax] 10 mg RECTAL .PRN X 1 PRN suppos. 10/06/20 Magnesium Hydroxide [Milk Of Magnesia] 30 ml PO .PRN X 1 PRN udc 10/06/20 Menthol/Lanolin/Calamine/Znox [Calmoseptine Ointment] 1 applic TOPICAL BID@0600,2200 tube 10/06/20 Quetiapine Fumarate [Seroquel] 12.5 mg PO HS tab 10/06/20 Senna/Docusate Sodium [Senokot-S] 2 tab PO BID PRN tab 10/06/20 Sertraline HCl [Zoloft] 50 mg PO DAILY tab 10/06/20 Primary Care Physician: Derrick Pink MD [Primary Care Provider] - Test Results: Test results from this visit will be discussed in further detail at your follow-up appointment, if applicable. Proposed Discharge Date: 10/07/20
[2020-10-06 14:00] VITALS: BP 126/80; PULSE 58; RESP 18; TEMP 36.7; O2SAT 93
[2020-10-06] MEDS: Tamsulosin HCl 0.4 MG Capsule PO (16:43)
[2020-10-06 17:44] VITALS: BP 141/73; PULSE 55; RESP 18; TEMP 37.2; O2SAT 99
[2020-10-06] MEDS: QUEtiapine 25 MG Tablet 12.5 MG PO (19:39)
[2020-10-07] MEDS: Menthol/Lanolin/Calamine/Znox 113 GM Tube 1 APPLIC TOPICAL (06:52)
[2020-10-07] MEDS: Levothyroxine 75 MCG Tablet PO (06:52)
[2020-10-07 07:00] VITALS: BP 146/80; PULSE 56; RESP 18; TEMP 36.7; O2SAT 96
[2020-10-07] MEDS: Sertraline 50 MG Tablet PO (07:50)
[2020-10-07] MEDS: amLODIPine 2.5 MG Tablet PO (07:50)
[2020-10-07] MEDS: Lisinopril 10 MG Tablet PO (07:50)
[2020-10-07] MEDS: Acetaminophen 325 MG Tablet 650 MG PO (07:54)
--- NOTE | 2020-10-07 09:36 | DS.PCM_ITS ---
Discharge Date and Diagnosis - Problem List Patient Problems: Active and Suspected Problems (Last Reviewed 09/16/20 @ 18:[address] 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 Also with multiple white matter hyperintensities distributed throughout the deep white matter tracts of the bilateral cerebral hemispheres consistent with moderate chronic white matter ischemic changes. Encephalopathy acute (Acute) due to CVA in pt with underlying dementia Date of Admission: 09/16/20 Date of Discharge: 10/07/20 - Primary Discharge Diagnosis Acute Problems: Active Problems (Last Reviewed 09/16/20 @ 18:[address] 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 Also with multiple white matter hyperintensities distributed throughout the deep white matter tracts of the bilateral cerebral hemispheres consistent with moderate chronic white matter ischemic changes. Encephalopathy acute (Acute) due to CVA in pt with underlying dementia NSTEMI Sinus bradycardia Sleep disordered breathing with hypoxia and worsening bradycardia with sleep Dysphagia Depression Suspected Problems: Central sleep apnea - Secondary Discharge Diagnosis Chronic Problems: Chronic Problems (Last Reviewed 09/16/20 @ 18:[address] Tri Liu DO) Dementia with behavioral disturbance (Chronic) Sinus bradycardia (Chronic) Urinary and fecal incontinence (Chronic) Diabetes mellitus type 2, diet controlled (Chronic) Chronic renal failure, stage 3 - this is not true. When the diuretic was stopped and he was hydrated the Creat normalized. Stenosis of left vertebral artery (Chronic) BPH (benign prostatic hyperplasia) (Chronic) Microscopic hematuria (Chronic) With urate crystals present Diabetic peripheral neuropathy associated with type 2 diabetes mellitus (Chronic) Pulmonary hypertension (Chronic) Right ventricular systolic pressure estimated at 40-45 on echocardiogram in August 2020 Hypertension (Chronic) Hypothyroidism (Chronic) Hyperlipemia (Chronic) Hospital Course and Treatment Imaging Results: Clinical Impression(s) from Imaging Studies Brain CT 09/16/20 19:33 IMPRESSION: Chronic involutional changes without evidence of acute intracranial or calvarial abnormality. Electronically Signed: Theodore Richards DO at 20:09 EDT Tel [phone], Service support , Laboratory Last Values WBC 7.3 K/mm3 (4.4-11.0) 09/23/20 05:15 RBC 5.25 M/mm3 (4.6-6.2) 09/23/20 05:15 Hgb 14.4 g/dL (13.0-16.5) 09/23/20 05:15 Hct 46.7 % (40-54) 09/23/20 05:15 MCV 89.0 fL (80-94) 09/23/20 05:15 MCH 27.4 pg (27.0-32.0) 09/23/20 05:15 MCHC 30.8 g/dL (32-36) L 09/23/20 05:15 RDW Std Deviation 42.7 fl (35.1-43.9) 09/23/20 05:15 RDW Coeff of [place] 13.1 % (11.6-14.6) 09/23/20 05:15 Plt Count 243 K/mm3 (150-450) 09/23/20 05:15 MPV 10.6 fl (6.2-12.0) 09/23/20 05:15 Sodium 141 mmol/L (136-145) 10/03/20 06:54 Potassium 3.9 mmol/L (3.5-5.1) 10/03/20 06:54 Chloride 108 mmol/L (98-107) H 10/03/20 06:54 Carbon Dioxide 27.0 mmol/L (21.0-32.0) 10/03/20 06:54 Anion Gap 6 (5-15) 10/03/20 06:54 BUN 18 mg/dL (7-18) 10/03/20 06:54 Creatinine 0.86 mg/dL (0.70-1.30) 10/03/20 06:54 Estim Creat Clear Calc 59.59 ml/min 10/03/20 06:54 Est GFR (MDRD) Af Amer 109 mL/min (>60) 10/03/20 06:54 Est GFR (MDRD) Non-Af 90 mL/min (>60) 10/03/20 06:54 BUN/Creatinine Ratio 20.8 RATIO (10-20) H 10/03/20 06:54 Glucose 118 mg/dL (74-106) H 10/03/20 06:54 Calcium 8.8 mg/dL (8.5-10.1) 10/03/20 06:54 Phosphorus 3.4 mg/dL (2.5-4.9) 09/17/20 08:26 Magnesium 2.4 mg/dL (1.6-2.6) 09/23/20 05:15 Total Bilirubin 0.70 mg/dL (0.20-1.00) 09/17/20 08:26 AST 32 U/L (15-37) 09/17/20 08:26 ALT 27 U/L (16-61) 09/17/20 08:26 Alkaline Phosphatase 61 U/L (45-117) 09/17/20 08:26 Troponin I 0.705 ng/mL (<0.045) H* 09/17/20 08:26 Total Protein 7.0 g/dL (6.4-8.2) 09/17/20 08:26 Albumin 3.3 g/dL (3.2-5.0) 09/17/20 08:26 Globulin 3.7 g/dL (2.2-4.2) 09/17/20 08:26 Albumin/Globulin Ratio 0.9 RATIO (0.9-2.4) 09/17/20 08:26 TSH 3.35 uIU/mL (0.358-3.74) 09/17/20 08:26 Urine Color Yellow (Yellow) 10/04/20 17:56 Urine Clarity Clear (Clear) 10/04/20 17:56 Urine pH 5.0 (5.0 - 8.0) 10/04/20 17:56 Ur Specific [place] 1.020 (1.002-1.030) 10/04/20 17:56 Urine Protein Negative mg/dl (Negative) 10/04/20 17:56 Urine Glucose (UA) Normal mg/dl (Normal) 10/04/20 17:56 Urine Ketones Negative mg/dl (Negative) 10/04/20 17:56 Urine Occult Blood 25 /ul (Negative) H 10/04/20 17:56 Urine Nitrite Negative (Negative) 10/04/20 17:56 Urine Bilirubin Negative mg/dL (Negative) 10/04/20 17:56 Urine Urobilinogen Normal mg/dl (Normal) 10/04/20 17:56 Ur Leukocyte Esterase Negative /ul (Negative) 10/04/20 17:56 Urine RBC 0-5 SEEN /hpf (0-5) 10/04/20 17:56 Urine WBC 0 SEEN /hpf (0-5) 10/04/20 17:56 Ur Squamous Epith Cells 0-5 SEEN /hpf (0-5) 10/04/20 17:56 Urine Bacteria 0 SEEN /hpf (None Seen) 10/04/20 17:56 Urine Mucus 0 SEEN /hpf (<or=2+) 10/04/20 17:56 POC Glucose 107 mg/dL (70-110) 10/06/20 06:26 [facility] -Dr. Willy Casey Operations: None Procedures: None Summary of Care Provided: Trent Bernabe is a 80 year old M with a past medical history of hypertension, hyperlipidemia, hypothyroidism, diabetes mellitus type 2, diabetic peripheral polyneuropathy, heart failure with preserved ejection fraction, dementia ( on Aricept), BPH and chronic renal failure stage 3a who was brought to the ED at [facility] on 09/14/2020 when his family found him lying on the floor with left-sided weakness. He was confused. He was last known well 10 hours prior to being brought to the ED. a noncontrasted CT brain showed chronic involutional changes with tiny lacunar infarcts in the thalami bilaterally. A CTA of the brain and neck showed possible focal moderate to severe stenosis near the origin of the left vertebral artery. [facility] telestroke was contacted and they did not recommend TPA because he was outside the window for TPA. The patient was not on an antiplatelet agent at presentation to the emergency department. He was started on aspirin and the stroke protocol was initiated. An MRI was obtained the following morning and it showed involutional changes of the brain with acute/subacute white matter infarct of the posterior limb of the right internal capsule. An echocardiogram showed a 55% left ventricular ejection fraction with indeterminate diastolic function. Both the right and left atrium were of normal size. Bubble contrast study was negative for right to left interatrial shunt. There was no significant valvular heart disease. The pulmonary artery systolic pressure was estimated at 40-45. There was hypokinesis of a portion of the lateral and posterior glass. CBC was unremarkable. The BUN was 30 with a creatinine of 1.36 and his hemoglobin A1c was 6.6. Lipid panel showed a total cholesterol of 222 with an LDL of 136 and an HDL of 51. Triglycerides were within normal limits. The initial troponin was 0.233 and the third troponin was 0.292. Consult was obtained with [facility] neurology on 09/16/2020 prior to transfer to the inpatient rehab unit. His NIH stroke scale score was 10. Dual antiplatelet therapy was recommended for 3 weeks and then to continue monotherapy lifelong. [facility] recommended increasing the atorvastatin to 80 mg daily. He had no atrial fibrillation while on telemetry. Neurology was s pecifically asked if he should have an event monitor and they felt the likelihood of this stroke being embolic was low and felt that it would be a low yield to do an event monitor. He was transferred to the Inpt rehab unit on 09/16/20 for > 3 hours of therapy daily to restore him at or near his prior level of function. He was seen by speech therapy on 09/15/1930 and approved for regular textures and thin liquids. A repeat Troponin on 09/17/20 was 0.705. The prior Troponin was 0.292 on 09/15/20. Consult was obtained with cardiology and he was seen by Dr. Casey. Dr. Casey spoke with the patient's dtr Chayito and she expressed that she did not want any aggressive treatment and that she wanted him to be comfortable. Medical management was recommended. He has not complained of any chest pain since arriving in rehab. He has not had SOB. While awake his pulse ox on RA is 93 to 99%. An overnight trending pulse ox was very abnormal. He is significantly hypoxic when he is sleeping and the HR dropped as low as 30. He has been utilizing O2 at 2LPM while sleeping. Initially he had issues with sundowning severe agitation at night. He was awake most of the night and yelling out. He was also on dressing and urinating on the floor. After talking with Chayito it was clear that he had been depressed for at least the past year. He was started on sertraline to assist with agitat ion and depression and started on Seroquel 12.5 mg p.o. nightly for sleep and agitation. He sleeps well with this dose of Seroquel and we have had no further behavioral issues. He tolerated sertraline without any adverse effects and the sertraline was increased to 50 mg with good results. He is more alert, makes good eye contact, cooperates with the therapists and smiles a lot. He feeds himself and does well with regular textures and nectar thick liquids. He can not stand up from a seated postion and we have been using a Lala-lift to transfer him from the bed to the chair and the toilet. He has been walking with the aid of the wall rail and moderate assistance. It is max assist to get him standing from the WC. Trent's dtr Chayito came in on the day of DC for instruction from OT/PT on how best to help him function safely. We discussed his medications with Chayito and discontinued all meds not essential to his comfort. We had to DC the beta heather due to bradycardia however the bradycardia persisted after Metoprolol was discontinued. He is now on Amlodipine for BP control. I think the Sertraline has made a big difference in his disposition. He is much more interactive now. I elected to continue both Sertraline and Seroquel. Trent was discharged home on 10/07/20 and hospice will assume care. Alert, making good eye contact, smiling at me, calm and attentive. Mucous membranes-a little dry but much better than it was admission. Creatinine normalized when the diuretic was discontinued and he currently has no peripheral edema, no S3 gallop and his pulse ox on room air this morning is 99%. Heart-regular, bradycardic, no gallop, no rub Lungs-very diminished secondary to poor inspiratory effort. He is not tachypneic and has no accessory muscle use. Abdomen-soft, no guarding with palpation, bowel sounds present No peripheral edema No rashes, no skin breakdown This note was generated with [employer] dictation software. It may contain incorrect words, spelling, and punctuation that were not noted in checking the note before signing. Patient Problems: Active and Suspected Problems (Last Reviewed 09/16/20 @ 18:[address] 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 Also with multiple white matter hyperintensities distributed throughout the deep white matter tracts of the bilateral cerebral hemispheres consistent with moderate chronic white matter ischemic changes. Encephalopathy acute (Acute) due to CVA in pt with underlying dementia - Physical Exam Vitals/I&O's: Vital Signs Temp Pulse Resp BP Pulse Ox 98.0 F 56 L 18 146/80 H 96 10/07/20 07:00 10/07/20 07:00 10/07/20 07:00 10/07/20 07:00 10/07/20 07:00 Oxygen Flow Rate (L/min) 2 Oxygen Delivery Method Room Air Weight: 178 lb 9.191 oz Body Mass Index (BMI) 29.4 Finger Stick Blood Glucose 154 Intake and Output for Last 24 Hours 10/05/20 10/06/20 10/07/20 23:59 23:59 23:59 Intake Total 960 / 1200 990 / 990 390 / 390 Output Total 200 / 200 300 / 300 Balance 760 / 1000 690 / 690 390 / 390 Current Medications Acetaminophen (Acetaminophen 325 Mg Tablet) 650 mg PO Q4H PRN PRN PRN Reason: Headache(1-10)/Temp>99.6F Last Admin: 10/07/20 07:54 Dose: 650 mg Documented by: Amlodipine Besylate (Amlodipine 2.5 Mg Tablet) 2.5 mg PO DAILY [facility] Last Admin: 10/07/20 07:50 Dose: 2.5 mg Documented by: Bisacodyl (Bisacodyl 10 Mg Suppository) 10 mg RECTAL .PRN X 1 PRN PRN Reason: Constipation Calamine/Phenol (Menthol/Lanolin/Calamine/Znox 113 Gm Tube) 1 applic TOPICAL BID@0600,2200 [facility]; Protocol Last Admin: 10/07/20 06:52 Dose: 1 applicatio Documented by: Levothyroxine Sodium (Levothyroxine 75 Mcg Tablet) 75 mcg PO DAILY@0600 [facility] Last Admin: 10/07/20 06:52 Dose: 75 mcg Documented by: Lisinopril (Lisinopril 10 Mg Tablet) 10 mg PO DAILY [facility] Last Admin: 10/07/20 07:50 Dose: 10 mg Documented by: Magnesium Hydroxide (Magnesium Hydroxide 30 Ml Udc) 30 ml PO .PRN X 1 PRN PRN Reason: Constipation Quetiapine Fumarate (Quetiapine 25 Mg Tablet) 12.5 mg PO HS [facility] Last Admin: 10/06/20 19:39 Dose: 12.5 mg Documented by: Senna/Docusate Sodium (Senna/Docusate Sodium 1 Tablet) 2 tablet PO BID PRN PRN Reason: CONSTIPATION Sertraline HCl (Sertraline 50 Mg Tablet) 50 mg PO DAILY [facility] Last Admin: 10/07/20 07:50 Dose: 50 mg Documented by: Sodium Chloride (0.9% Saline Lock 10 Ml Syringe) 10 - 40 ml IV UD PRN PRN Reason: SALINE FLUSH Last Admin: 10/02/20 06:57 Dose: 10 ml Documented by: Tamsulosin HCl (Tamsulosin Hcl 0.4 Mg Capsule) 0.4 mg PO DAILY@1730 [facility] Last Admin: 10/06/20 16:43 Dose: 0.4 mg Documented by: May resume sexual activity in: No Restrictions Call your doctor if you observe: Fever of 101 or Higher, Inability to urinate, Inability to have a bowel movement, Shortness of breath, Fainting spells, Swelling in the ankles, Chest pain, Uncontrolled pain Home Medications: Medications to take at Discharge Levothyroxine [Synthroid] 75 mcg PO DAILY 04/23/16 Acetaminophen [Tylenol Tablet] 650 mg PO Q4H PRN PRN tab 09/16/20 Tamsulosin HCl [Flomax] 0.4 mg PO DAILY@1730 09/16/20 Amlodipine [Norvasc] 5 mg PO DAILY tab 10/06/20 Bisacodyl [Dulcolax] 10 mg RECTAL .PRN X 1 PRN suppos. 10/06/20 Magnesium Hydroxide [Milk Of Magnesia] 30 ml PO .PRN X 1 PRN udc 10/06/20 Menthol/Lanolin/Calamine/Znox [Calmoseptine Ointment] 1 applic TOPICAL BID@0600,2200 tube 10/06/20 Quetiapine Fumarate [Seroquel] 12.5 mg PO HS tab 10/06/20 Senna/Docusate Sodium [Senokot-S] 2 tab PO BID PRN tab 10/06/20 Sertraline HCl [Zoloft] 50 mg PO DAILY tab 10/06/20 Primary Care Physician: Derrick Pink MD [Primary Care Provider] - Disposition: Home with Hospice Minutes spent on discharge:: 40 Patient Condition:: Stable - he is improved significantly since admisssion to the rehaB unit Medical Necessity - Tobacco Use Smoking Status: Never smoker Tobacco Use: Non-smoker Meaningful Use Info Meaningful Use Diagnoses (Choose all that apply): Ischemic CVA - CVA Therapy Assessed for PT,OT and/or ST?: Yes - Ischemic Stroke Antithrombotic order at d/c?: No Reason antithrombotic not ordered: Hospice Dx of Atrial fib/flutter?: No Anticoagulant at discharge?: No Reason anticoagulant not ordered: Treatment not Indicated Statins at discharge?: No Reason Statin not ordered: Hospice Primary Dx Acute Ischemic CVA?: Yes IV tPA ordered during stay?: No Reason IV t-PA not ordered: Treatment not Indicated - He was outside the window Inpatient E&M: [id number] [facility]
[2020-10-07 13:50] VITALS: BP 146/80; PULSE 56; RESP 18; TEMP 36.7; O2SAT 96
--- NOTE | 2020-10-07 13:54 | NURSING ---
Ambulance personnel here for transport. Daughter came in earlier this AM for family training and discharge instructions provided and she verbalized understanding.
== END 2020-10-07 14:00 | disposition hospice, home (50) | DRG 56 ==
PROVIDERS: Admitting Provider Internal Medicine; PCP Family Medicine; Referring Provider Internal Medicine; Visit Provider Internal Medicine
DX: I69.354 Hemiplegia and hemiparesis following cerebral infarction affecting left non-dominant side (principal); I21.4 Non-ST elevation (NSTEMI) myocardial infarction; I50.32 Chronic diastolic (congestive) heart failure; I13.0 Hypertensive heart and chronic kidney disease with heart failure and stage 1 through stage 4 chronic kidney disease, or unspecified chronic kidney disease; F02.81 Dementia in other diseases classified elsewhere, unspecified severity, with behavioral disturbance; G93.40 Encephalopathy, unspecified; I69.322 Dysarthria following cerebral infarction; I69.392 Facial weakness following cerebral infarction; E11.42 Type 2 diabetes mellitus with diabetic polyneuropathy; E11.22 Type 2 diabetes mellitus with diabetic chronic kidney disease; I27.20 Pulmonary hypertension, unspecified; E78.5 Hyperlipidemia, unspecified; E03.9 Hypothyroidism, unspecified; N18.31 Chronic kidney disease, stage 3a; F32.9 Major depressive disorder, single episode, unspecified; R31.29 Other microscopic hematuria; N40.1 Benign prostatic hyperplasia with lower urinary tract symptoms; I69.398 Other sequelae of cerebral infarction; H53.40 Unspecified visual field defects; R13.10 Dysphagia, unspecified; R00.1 Bradycardia, unspecified
CPT/HCPCS: 36415; 70450; 80048; 80053; 81001; 82962; 83735; 84100; 84443; 84484; 85027; 92507; 92526; 92610; 93005; 94762; 97110; 97112; 97116; 97163; 97166; 97530; 97535; 97542; 97802; 99251; A4216; G0463; J7799

== ENCOUNTER → 2023-04-10 | Outpatient (CLI) | payer MEDICARE, MEDICAID, SELFPAY ==
[2023-04-10 21:58] LABS: Color, Urine Yellow (Yellow); Glucose, Dipstick Normal (Normal); Ketone-Dipstick Negative (Negative); Leukocyte Esterase-Dipstick 500 /ul (Negative); Nitrite-Dipstick Negative (Negative); Occult Blood-Urine 150 /ul (Negative); Protein-Dipstick 15 mg/dl (Negative); Specific Gravity, Urine 1.025 (1.002-1.030); Urine Clarity Sl. Cloudy (Clear); Urine Urobilinogen Normal (Normal)
[2023-04-10 21:59] LABS: Urine Bilirubin Dipstick 1 mg/dL (Negative)
== END | disposition home or self-care (01) ==
PROVIDERS: PCP Family Medicine; Visit Provider Family Medicine
DX: R39.198 Other difficulties with micturition (principal)
CPT/HCPCS: 81002; 87077; 87086; 87088; 87186